=== PATIENT | male | born 1940 | race Caucasian/White ===

== ENCOUNTER 2018-01-29 07:46 | Day surgery (SDC) | payer MEDICARE ==
[2018-01-18 08:56] VITALS: BMI 29.5
--- NOTE | 2018-01-29 07:21 | P.GSHP ---
History of Present Illness H&P Date: 01/29/18 CHIEF COMPLAINT: Colon screen HISTORY OF PRESENT ILLNESS: The patient is a 77-year-old male who presents for colon screen. Lower endoscopy was offered for further evaluation and management. PAST MEDICAL HISTORY: Please see list. PAST SURGICAL HISTORY: Please see list. MEDICATIONS: Please see list. ALLERGIES: Please see list. SOCIAL HISTORY: No illicit drug use FAMILY HISTORY: No reports of Crohn disease or ulcerative colitis. REVIEW OF ORGAN SYSTEMS: CONSTITUTIONAL: No reports of fevers or chills. PHYSICAL EXAM: VITAL SIGNS: Stable GENERAL: Well-developed pleasant in no acute distress. HEENT: No scleral icterus. Extraocular movements grossly intact. Moist buccal mucosa. NECK: Supple without lymphadenopathy. CHEST: Unlabored respirations. Equal bilateral excursions. CARDIOVASCULAR: Regular rate and rhythm. Distal 2+ pulses. ABDOMEN: Soft, nontender, nondistended. MUSCULOSKELETAL: No clubbing, cyanosis, or edema. ASSESSMENT: 1. Colon screen. PLAN: 1. Recommend proceeding with a lower endoscopy Past Medical History Past Medical History: Diabetes Mellitus, GERD/Reflux, Prostate Disorder Additional Past Medical History / Comment(s): heart valve problem, diet control diabetic, History of Any Multi-Drug Resistant Organisms: None Reported Past Surgical History: Appendectomy, Cholecystectomy Additional Past Surgical History / Comment(s): torn retina rt eye surgery x 2, massiel cataracts Past Anesthesia/Blood Transfusion Reactions: Previous Problems w/ Anesthesia Additional Past Anesthesia/Blood Transfusion Reaction / Comment(s): diff waking up after colonoscopy-took long time Smoking Status: Never smoker - Past Family History Daughter(s) Family Medical History: Cancer Brother(s) Family Medical History: Cancer Medications and Allergies Home Medications Medication Instructions Recorded Confirmed Type Aspirin 325 mg PO DAILY 01/18/18 01/18/18 History Cholecalciferol [Vitamin D3] 4,000 unit PO DAILY 01/18/18 01/18/18 History Fenofibrate Nanocrystallized 145 mg PO DAILY 01/18/18 01/18/18 History [Tricor] Multivitamins, Thera [Multivitamin 1 tab PO DAILY 01/18/18 01/18/18 History (formulary)] Naproxen Sodium [Aleve] 220 mg PO DAILY 01/18/18 01/18/18 History Quinapril HCl [Accupril] 10 mg PO DAILY 01/18/18 01/18/18 History Tamsulosin HCl [Flomax] 0.4 mg PO HS 01/18/18 01/18/18 History Allergies Allergy/AdvReac Type Severity Reaction Status Date / Time No Known Allergies Allergy Verified 01/18/18 08:40
[~2018-01-29 07:46] MED LIST: LACTATED RINGERS 1,000 ML IV SCH; LIDOCAINE 1% 20 ML VIAL (10MG/ML) FOR IV START INTRADERMA PRN
[2018-01-29 08:17] VITALS: TEMP 98
[2018-01-29 08:20] LABS: Glucose,Whole Blood 114 mg/dL (75-99)
[2018-01-29] MEDS ORDERED: PROPOFOL 10 MG/ML 20 ML VIAL IV ONE (08:27)
--- NOTE | 2018-01-29 09:02 | P.PCN ---
Date of Procedure: 01/29/18 Description of Procedure: PREOPERATIVE DIAGNOSIS: Personal history of colon polyps. POSTOPERATIVE DIAGNOSIS: Personal history of colon polyps. Sigmoid colon polyp Rectal polyp Scattered diverticulosis OPERATION: Colonoscopy to the ileocecal valve and appendiceal orifice. Colonoscopy with multiple cold forceps biopsies. SURGEON: Denise Magana MD. ANESTHESIA: MAC. INDICATIONS: The patient is a 77-year-old male who presents for colonoscopy screening. Last colonoscopy was 5 years ago. Benefits and risks were described and informed consent was obtained. DESCRIPTION OF PROCEDURE: The patient had undergone Gatorade, MiraLAX and Dulcolax prep. He had been brought into the operating room and laid in the left lateral decubitus position. Prostatic fossa was without abnormality. After adequate intravenous sedation, the rectum was examined with 2% lidocaine jelly. No external hemorrhoids were encountered. The rectal tone was within normal limits. No lesions were palpated in the rectal vault. An Olympus colonoscope was advanced until the ileocecal valve and appendiceal orifice were clearly viewed. The prep was fair with visualization of the mucosal folds. The scope was removed with visualization of each mucosal fold. Scattered diverticulosis was encountered. Multiple colonic polyps were found and cold forcep biopsy . No evidence of focal colitis was found. Retroflexion of the scope demonstrated no internal hemorrhoids without active bleeding or inflammation. The colon was desufflated. The patient had tolerated the procedure well. Withdrawal time was over 6 minutes. FINDINGS: No internal hemorrhoids No external hemorrhoids No arteriovenous malformations Scattered diverticulosis without diverticulitis Removal of 2 polyps: - Cold forceps biopsy at 20 cm from the anal verge, 4 mm polyp, sigmoid colon - Cold forceps biopsy at 10 cm from the anal verge, 4 mm polyp, rectal polyp No focal colitis. RECOMMENDATIONS: Recommend repeat colonoscopy 5 years, 2022 Plan - Discharge Summary New Discharge Prescriptions: No Action Quinapril HCl [Accupril] 10 mg PO DAILY Fenofibrate Nanocrystallized [Tricor] 145 mg PO DAILY Tamsulosin HCl [Flomax] 0.4 mg PO HS Naproxen Sodium [Aleve] 220 mg PO DAILY Cholecalciferol [Vitamin D3] 4,000 unit PO DAILY Aspirin 325 mg PO DAILY Multivitamins, Thera [Multivitamin (formulary)] 1 tab PO DAILY Discharge Medication List Aspirin 325 mg PO DAILY 01/18/18 [History] Cholecalciferol [Vitamin D3] 4,000 unit PO DAILY 01/18/18 [History] Fenofibrate Nanocrystallized [Tricor] 145 mg PO DAILY 01/18/18 [History] Multivitamins, Thera [Multivitamin (formulary)] 1 tab PO DAILY 01/18/18 [History ] Naproxen Sodium [Aleve] 220 mg PO DAILY 01/18/18 [History] Quinapril HCl [Accupril] 10 mg PO DAILY 01/18/18 [History] Tamsulosin HCl [Flomax] 0.4 mg PO HS 01/18/18 [History]
[2018-01-29 09:21] VITALS: BP 125/81; PULSE 73; RESP 18
== END 2018-01-29 09:39 | disposition home or self-care (01) ==
LOC: ORWHC2ENDO 07:46
PROVIDERS: ATTEND Surgery Plastic and Reconstructive Surgery
DX: Z12.11 Encounter for screening for malignant neoplasm of colon (principal); K63.5 Polyp of colon; K62.1 Rectal polyp; K57.90 Diverticulosis of intestine, part unspecified, without perforation or abscess without bleeding; Z86.010 Personal history of colon polyps; K21.9 Gastro-esophageal reflux disease without esophagitis; I10 Essential (primary) hypertension; E78.5 Hyperlipidemia, unspecified; N40.0 Benign prostatic hyperplasia without lower urinary tract symptoms; Z79.82 Long term (current) use of aspirin; Z79.899 Other long term (current) drug therapy
CPT/HCPCS: 88305; 45380; J2704

== ENCOUNTER → 2018-04-03 | Outpatient (CLI) | payer MEDICARE ==
--- NOTE | 2018-04-03 11:28 | XR ---
EXAMINATION TYPE: XR shoulder complete LT DATE OF EXAM: 04/03/2018 COMPARISON: NONE HISTORY: Pain TECHNIQUE: Three views are submitted. FINDINGS: The osseous structures are intact. There is no acute fracture or dislocation. Severe arthropathy AC joint. Mild narrowing of the glenohumeral joint. IMPRESSION: 1. AC joint arthropathy.
== END | disposition home or self-care (01) ==
LOC: RADXRMAIN 10:39
PROVIDERS: ATTEND Physician Assistant
DX: M19.012 Primary osteoarthritis, left shoulder (principal)

== ENCOUNTER → 2018-04-26 | Outpatient (CLI) | payer MEDICARE | END | disposition home or self-care (01) | LOC: RADMRIMAIN 07:02 | PROVIDERS: ATTEND Physician Assistant | DX: Z53.9 Procedure and treatment not carried out, unspecified reason (principal) ==

== ENCOUNTER 2018-09-20 05:51 | Day surgery (SDC) | payer MEDICARE ==
[2018-07-31 10:25] VITALS: BMI 29.2
--- NOTE | 2018-09-19 15:17 | HP ---
HISTORY AND PHYSICAL DATE OF SERVICE: 09/20/2018 Car Escamilla is a 78-year-old patient seen with progressive left shoulder pain. We discussed treatment options. Patient wanted to proceed with arthroscopy. Consent was obtained. Medical and cardiac clearances were obtained. PAST MEDICAL HISTORY: Hypertension, hyperlipidemia. PAST SURGICAL HISTORY: Cholecystectomy daily. MEDICATIONS: Accupril, Tricor for Eliquis, Flomax, Lopressor. ALLERGIES: None. SOCIAL HISTORY: The patient denies current tobacco use. PHYSICAL EVALUATION OF THE LEFT SHOULDER: Flexion is 170 degrees, abduction 170 degrees, external rotation 70 degrees with pain and weakness. There is tenderness along the anterolateral acromion rotator cuff insertion site. Impingement sign is positive at 90. Drop-arm sign is positive. Distal neurovascular exam is intact. LEFT SHOULDER RADIOGRAPHS: Revealed a type 2 anterior acromion as well as evidence for acromioclavicular joint osteoarthritis. An MRI of left shoulder revealed a retracted rotator cuff tear, acromioclavicular joint osteoarthritis and labral tear. IMPRESSION: 1. Left shoulder impingement with rotator cuff tear. 2. Left shoulder acromioclavicular joint osteoarthritis. PLAN: Left shoulder arthroscopy with subacromial decompression, possible arthroscopic rotator cuff repair, possible Priyanka procedure and debridement. MMODL / IJN: [id number] /
[~2018-09-20 05:51] MED LIST changes: +DEXAMETHASONE SOD PHOSPHATE 10 MG/ML 1 ML VIAL IV ONE; +HYDROmorphone 0.5 MG/0.5 ML SYRINGE IVP PRN; +SCOPOLAMINE 1.5MG/72HR PATCH TRANSDERM ONE; +ceFAZolin IN SWFI 2 GM/20 ML SYRINGE IVP ONE
[2018-09-20] MEDS: ONDANSETRON 4 MG/2 ML VIAL IVP ONE ×2 (06:43→10:09)
[2018-09-20] MEDS ORDERED: NEOSTIGMINE 1 MG/ML 10 ML VIAL ONE (07:41)
[2018-09-20] MEDS ORDERED: LIDOCAINE 1% INJ 10MG/ML (20 ML MDV) ONE (07:41)
[2018-09-20] MEDS ORDERED: ROCURONIUM BROMIDE 10 MG/ML 10 ML VIAL IV ONE (07:41)
[2018-09-20] MEDS ORDERED: ROPIVACAINE 5 MG/ML 30 ML VIAL ONE (07:41)
[2018-09-20] MEDS ORDERED: GLYCOPYRROLATE 0.2 MG/ML 2 ML VIAL ONE (07:41)
[2018-09-20] MEDS ORDERED: PROPOFOL 10 MG/ML 20 ML VIAL IV ONE (07:41)
[2018-09-20] MEDS ORDERED: LACTATED RINGERS 1,000 ML IV ONE (08:48)
--- NOTE | 2018-09-20 09:29 | P.OP ---
Date of Procedure: 09/20/18 Preoperative Diagnosis: Left shoulder impingement Postoperative Diagnosis: 1. Left shoulder rotator cuff tear 2. Left shoulder impingement 3. Left shoulder acromioclavicular joint osteoarthritis 4. Left shoulder partial long head biceps tendon tear 5. Left shoulder superficial labral tear Procedure(s) Performed: 1. Left shoulder arthroscopic rotator cuff repair 2. Left shoulder arthroscopic subacromial decompression 3. Left shoulder arthroscopic Priyanka procedure 4. Left shoulder arthroscopic biceps tenotomy 5. Left shoulder arthroscopic debridement labral tear Implants: 4Arthrex swivel lock anchors Anesthesia: GETA, regional (Interscalene block) Surgeon: Nayan Chappell Estimated Blood Loss (ml): 10 Pathology: none sent Condition: stable Disposition: PACU Indications for Procedure: 78-year-old patient seen with progressive left shoulder pain. After having treatment options discussed, he elected to proceed with arthroscopy. Operative Findings: See description of procedure Description of Procedure: Patient underwent an interscalene block by department of anesthesia for postoperative pain management. The patient was then taken to the operative suite. The patient underwent a general anesthetic by the department of anesthesia. The patient was placed into a lateral position and secured. There was appropriate padding of the bony prominence. Left shoulder was then prepped and draped in normal sterile orthopedic fashion. We placed the extremity in 10 pounds of longitudinal traction. A posterior incision was now made for a posterior working portal site. The trocar and cannula were inserted into the glenohumeral joint. Arthroscopy was initiated. Spinal needle was now inserted anteriorly, to ascertain the anterior working portal site. An incision was now made in that area, a trocar was inserted followed by a probe. There was partial tearing long head biceps tendon. Some superficial tearing of the anterior/superior labrum. There was an obvious full-thickness large rotator cuff tear present and visualized from glenohumeral side. I performed an arthroscopic biceps tenotomy. I debrided the superficial labral tear down to stable tissue. The residual labrum appeared stable. Instruments were now removed from the glenohumeral joint. Utilizing the posterior working portal site, the trocar and cannula were inserted into the subacromial space. Arthroscopy initiated. I made an incision 2 fingerbreadths lateral to the acromion. I introduced my trocar followed by my ArthroCare ablator. I now began ablating thick subacromial bursal tissue, which exposed the undersurface of the anterior acromion. There was diminished subacromial space. There was a very prominent anterior acromion. A motorized bur was introduced and a subacromial decompression was performed. I also excised some osteophytes off the inferior aspect of the distal clavicle. The AC joint was visualized and noted to be fairly arthritic. The motorized bur was introduced in the anterior portal site and a Priyanka procedure was performed without difficulty, decompressing the AC joint nicely. I turned my attention to the rotator cuff. There was a 2. 53 cm rotator cuff tear. I debrided the margins getting down to stable tendon tissue. I introduced my motorized bur and abraded the footprint area, getting some petechial bleeding. I now made an accessory portal site off the lateral aspect of the acromion. I punched 2 holes medial for medial row fixation with the assistance of my records assistant carefully tapping the punch with a mallet as I held the punch and the camera. I now intr oduced both anchors into the pre-punched holes and tapped them with the mallet as I held anchors and the camera. My records assistant now screwed the anchors in place a while I held the anchor guide and camera. All 8 limbs of suture were now passed through good bites of rotator cuff tendon. I now punched 2 holes for lateral row fixation again I held the punch and camera while my records assistant used a mallet to tap in the punch. We now passed sutures through both anchors and individually I introduced the anchors into the pre-punch holes I held the anchor guide in position with one hand holding the camera with the other hand while my records assistant tensioned the sutures and screwed in the anchors one at a time. All residual suture limbs were now clipped. We had good compression of the tendon along the entire footprint. Instruments now removed from the portal sites. All portal sites were approximated with nylon suture. Sterile dressings were applied followed by a shoulder immobilizer. The patient was awakened, transferred to a bed, and taken to recovery in stable condition.
[2018-09-20 09:34] VITALS: TEMP 97.5
--- NOTE | 2018-09-20 09:37 | P.ONQ ---
Anesthesiology Proc Note - PNB - Peripheral Nerve Block Performed Left Interscalene Single Time Out Performed: Yes Procedure Start Time: :08 Procedure Stop Time: :15 Indication: Acute Post-Operative Pain, Requested by physician Sedation Type: Sedate with meaningful contact maintained Preparation: Sterile Prep Position: Supine Needle Size: 50mm (2") Needle Gauge: 21 Technique: Ultrasound (ropi .5% 30cc plus dexamethasone 4mg) Blood Aspirated: No Pain Paresthesia on Injection Noted: No Resistance on Injection: Normal Events: Uneventful and Well Tolerated
[2018-09-20] MEDS: MIDAZOLAM (PF) 2 MG/2 ML VIAL IV PRN (10:18)
[2018-09-20 13:58] VITALS: BP 141/70
[2018-09-20 14:35] VITALS: PULSE 56; RESP 18
== END 2018-09-20 14:38 | disposition home or self-care (01) ==
LOC: OR 05:51
PROVIDERS: ATTEND Orthopaedic Surgery
DX: M75.102 Unspecified rotator cuff tear or rupture of left shoulder, not specified as traumatic (principal); M75.42 Impingement syndrome of left shoulder; M19.012 Primary osteoarthritis, left shoulder; S46.112A Strain of muscle, fascia and tendon of long head of biceps, left arm, initial encounter; S43.432A Superior glenoid labrum lesion of left shoulder, initial encounter; M25.712 Osteophyte, left shoulder; X58.XXXA Exposure to other specified factors, initial encounter; I10 Essential (primary) hypertension; N40.0 Benign prostatic hyperplasia without lower urinary tract symptoms; E78.2 Mixed hyperlipidemia; E11.9 Type 2 diabetes mellitus without complications; Z79.01 Long term (current) use of anticoagulants; Z79.82 Long term (current) use of aspirin; Z79.899 Other long term (current) drug therapy; I48.2 Chronic atrial fibrillation; I34.0 Nonrheumatic mitral (valve) insufficiency; K21.9 Gastro-esophageal reflux disease without esophagitis; Z88.5 Allergy status to narcotic agent
CPT/HCPCS: 64415; 29826; 29827; 29824; C1713 ×5; C1765; J1100; J2710; J2405; J2001; J2795; J2704; J0690; J2250

== ENCOUNTER → 2019-03-12 | Outpatient (CLI) | payer MEDICARE ==
--- NOTE | 2019-03-12 10:20 | XR ---
EXAMINATION TYPE: XR chest 2V DATE OF EXAM: 03/12/2019 COMPARISON: 05/30/2017 TECHNIQUE: PA and lateral views submitted. HISTORY: Shortness of breath FINDINGS: Heart is enlarged. There is subsegmental changes at the lung bases. Hypertrophic and degenerative amandeep nge of the spine. No overt failure. Surgical clips in the abdomen noted. Arthropathy of the shoulders . Biapical pleural thickening. Atherosclerotic change aorta. IMPRESSION: 1. Cardiomegaly with basilar atelectasis favored over pneumonia.
== END | disposition home or self-care (01) ==
LOC: RADXRMAIN 09:37
PROVIDERS: ATTEND Physician Assistant
DX: I51.7 Cardiomegaly (principal); J98.11 Atelectasis; J18.9 Pneumonia, unspecified organism
CPT/HCPCS: 71046

== ENCOUNTER → 2019-03-25 | Outpatient (CLI) | payer MEDICARE ==
[2019-03-25 12:47] LABS: HCT 46.6 % (39.0-53.0); HGB 14.5 gm/dL (13.0-17.5); MCH 31.6 pg (25.0-35.0); MCHC 31.2 g/dL (31.0-37.0); MCV 101.1 fL (80.0-100.0); Mean Platelet Volume 8.2; Platelet Count 244 k/uL (150-450); RBC 4.61 m/uL (4.30-5.90); RDW 12.5 % (11.5-15.5); WBC 5.8 k/uL (3.8-10.6)
[2019-03-25 18:50] LABS: African American GFR (CKD) 44.4 (60.0-200.0); Anion Gap 8.9 mmol/L (4.00-12.00); Carbon Dioxide 24.1 mmol/L (21.6-31.8); Potassium 5.1 mmol/L (3.5-5.5)
== END | disposition home or self-care (01) ==
LOC: LABWHC1 10:50
PROVIDERS: ATTEND Internal Medicine Cardiovascular Disease
DX: R06.02 Shortness of breath (principal)
CPT/HCPCS: 36415; 80051; 82565; 83880; 84520; 85027

== ENCOUNTER → 2019-05-23 | Outpatient (CLI) | payer MEDICARE ==
[2019-05-23 17:13] LABS: HCT 43.8 % (39.0-53.0); HGB 14.8 gm/dL (13.0-17.5); MCH 32.3 pg (25.0-35.0); MCHC 33.9 g/dL (31.0-37.0); Mean Platelet Volume 7.6; Platelet Count 223 k/uL (150-450); RBC 4.59 m/uL (4.30-5.90); RDW 12.3 % (11.5-15.5); WBC 5.9 k/uL (3.8-10.6)
[2019-05-23 17:14] LABS: Potassium 4.7 mmol/L (3.5-5.1)
[2019-05-23 17:32] LABS: MCV 95.4 fL (80.0-100.0)
== END | disposition home or self-care (01) ==
LOC: LABPAT 16:26
PROVIDERS: ATTEND Internal Medicine Cardiovascular Disease
DX: Z01.812 Encounter for preprocedural laboratory examination (principal); I48.21 Permanent atrial fibrillation
CPT/HCPCS: 80051; 82565; 84520; 85027

== ENCOUNTER 2019-05-29 09:19 | Day surgery (SDC) | payer MEDICARE ==
[2019-05-28 10:48] VITALS: BMI 29.2
[2019-05-29] MEDS ORDERED: ceFAZolin 1,000 MG in SODIUM CHLORIDE 0.9% IRRIGATIO 250 ML IRRIGATION ONE (09:30)
[2019-05-29] MEDS: SODIUM CHLORIDE 0.9% 1,000 ML IV SCH ×2 (09:56→16:25)
[2019-05-29] MEDS ORDERED: LIDOCAINE 1% INJ 10MG/ML (20 ML MDV) ONE (10:41)
[2019-05-29] MEDS ORDERED: fentaNYL (PF) 50 MCG/ML 2 ML AMP ONE (10:41)
[2019-05-29] MEDS ORDERED: fentaNYL (PF) 50 MCG/ML 2 ML AMP IV ONE (10:50)
[2019-05-29] MEDS ORDERED: MIDAZOLAM 2 MG/2 ML VIAL IV ONE (10:50)
[2019-05-29] MEDS ORDERED: LIDOCAINE 1% INJ 10MG/ML (20 ML MDV) SQ ONE (10:53)
[2019-05-29] MEDS ORDERED: ACETAMINOPHEN TAB 325 MG TAB PO PRN (11:35)
--- NOTE | 2019-05-29 11:43 | P.PCN ---
Date of Procedure: 05/29/19 Preoperative Diagnosis: Atrial fibrillation, sick sinus syndrome Postoperative Diagnosis: The same Procedure(s) Performed: Axillary venography, single-chamber permanent pacemaker implantation Description of Procedure: HISTORY: This is a 78-year-old gentleman with history of chronic atrial fibrillation has been having issues with tachybradycardia syndrome. Patient is advised to have permanent pacemaker implantation. Patient was referred by Dr. Arriaza. CONSENT:I have discussed the risks, benefits and alternative therapies for the above-mentioned procedure and for both sedation/analgesia as well as necessary blood product administration, if indicated, as they pertain to this patient. The patient has indicated understanding and acceptance of the risks and procedures discussed. . PROCEDURE: Patient was brought to the lab in a fasting state. Patient was prepped and draped in the usual fashion. Patient was given IV sedation with fentanyl and Versed. The skin below the left clavicle was infiltrated with lidocaine. An incision was made parallel to deltopectoral groove was deepened until the pectoral fascia was exposed. A pocket was created by blunt dissection and cautery. Axillary venography was performed to delineate the course of the axillary vein. A single venous stick was performed into extrathoracic portion of the axillary vein and a single sheath was advanced over the guidewires and left in subclavian vein. Conscious Sedation: Versed 1mg Fentanyl 50 g Duration 45minutes LEADS: VENTRICULAR: This is manufactured by [employer]. Model number is 5076-58 and the serial number is [id number] The device: THIS IS MANUFACTURED BY [employer]. MODEL NUMBER IS [id number] and the serial number isRN [id number] The ventricular lead is maneuvered l with help of a straight and curved stylets into the left ventricle apical region. Satisfactory position was obtained and threshold measurements were made. The atrial lead was then maneuvered into the right atrial appendage. And thresholds were obtained. THRESHOLDS: VENTRICLE: The minimum patient threshold was 0.75 at pulse width of 0.4 with impedance of 1045 R-wave:8 The leads and pulse generator remained in the pocket after it was washed with antibiotics. Pocket was closed in the usual fashion. The fascia was closed with 2-0 Prolene ,the subcutaneous tissue was closed with 3-0 Prolene and the skin was closed with 4-0 Prolene. PROGRAMMING: MODE: VVIR RATE: 60- 120 OUTPUT: Ventricle: The amplitude is 3.5 V FINAL IMPRESSION: #1. Axillary venography #2. Successful implantation of single-chamber pacemaker. COMPLICATIONS: None PLAN: Continue prophylactic antibiotics. Chest x-ray in the morning. Possible discharge in am .
[2019-05-29 15:42] VITALS: RESP 18
[2019-05-29] MEDS: METOPROLOL TARTRATE 50 MG TAB PO SCH (20:43)
[2019-05-29] MEDS: APIXABAN 5 MG TAB PO SCH (20:43)
[2019-05-29] MEDS ORDERED: TAMSULOSIN 0.4 MG CAP.ER.24H PO SCH (21:00)
[2019-05-30] MEDS: SODIUM CHLORIDE 0.9% 1,000 ML IV SCH ×2 (03:24→03:25)
[2019-05-30] MEDS ORDERED: TAMSULOSIN 0.4 MG CAP.ER.24H PO SCH (03:30)
[2019-05-30] MEDS: METOPROLOL TARTRATE 50 MG TAB PO SCH ×3 (03:32→08:10)
[2019-05-30 08:01] VITALS: BP 144/91; PULSE 56; TEMP 97.9
[2019-05-30] MEDS: APIXABAN 5 MG TAB PO SCH (08:09)
--- NOTE | 2019-05-30 08:37 | XR ---
EXAMINATION TYPE: XR chest 2V DATE OF EXAM: 05/30/2019 COMPARISON: 03/12/2019 TECHNIQUE: PA and lateral views submitted. HISTORY: Lead placement FINDINGS: There is a single lead pacemaker with lead overlying the right ventricle and no sizable thorax. Inter stitium is coarse in the heart is enlarged. By basilar subsegmental consolidation. Hypertrophic and d egenerative change of the spine. Atherosclerotic change aorta. No pneumothorax. IMPRESSION: 1. Cardiac device appears in good position with no evidence of pneumothorax. 2. Bibasilar atelectasis or early infiltrate. 3. Correlate for chronic interstitial lung disease or venous congestion.
[2019-05-30] MEDS ORDERED: MULTIVITAMINS, THERA 1 EACH TAB PO SCH (09:00)
[2019-05-30] MEDS ORDERED: CHOLECALCIFEROL 1,000 UNIT TAB PO SCH (09:00)
[2019-05-30] MEDS ORDERED: FENOFIBRATE 160 MG TAB PO SCH (09:00)
[2019-05-30] MEDS ORDERED: LISINOPRIL 10 MG TAB PO SCH ×2 (09:00)
[2019-05-30] MEDS ORDERED: ASPIRIN 81 MG PO SCH (09:00)
== END 2019-05-30 12:10 | disposition home or self-care (01) ==
LOC: CATHEP 09:19 → 1SOBS 10:26 → CATHEP 05-30 12:10
PROVIDERS: ATTEND Internal Medicine Cardiovascular Disease
DX: I48.21 Permanent atrial fibrillation (principal); I49.5 Sick sinus syndrome; I10 Essential (primary) hypertension; E78.2 Mixed hyperlipidemia; Z79.01 Long term (current) use of anticoagulants; Z79.82 Long term (current) use of aspirin; Z79.899 Other long term (current) drug therapy
CPT/HCPCS: 33207; 83735; 71046; C1892; C1898; C1769; C1786; J2250; J0690 ×2; J2001; J3010

== ENCOUNTER → 2019-06-17 | Outpatient (CLI) | payer MEDICARE ==
--- NOTE | 2019-06-17 15:33 | US ---
EXAMINATION TYPE: US kidneys/renal and bladder DATE OF EXAM: 06/17/2019 COMPARISON: NONE CLINICAL HISTORY: N28.9 Disorder of kidney and ureter. abn labs per patient EXAM MEASUREMENTS: Right Kidney: 10.2 x 5.1 x 5.8 cm Left Kidney: 11.7 x 4.7 x 5.4 cm Right Kidney: Multiple cystic appearing lesions seen. Largest lower pole = 12.0 x 9.4 x 9.0 cm. Larg est upper pole = 4.6 x 4.9 x 4.1 cm Left Kidney: cystic lesion seen lateral lower pole - 3.3 x 2.7 x 2.9 cm. Solitary upper pole calculus measures 0.7 cm Bladder: mildly distended, anechoic Bilateral Jets not seen There is no evidence for hydronephrosis at this point in time. The urinary bladder is anechoic. Bila teral ureteral jets are not seen. IMPRESSION: 1. Numerous bilateral renal cysts with the largest on the left measuring up to 12.0 cm. 2. Nonobstructing left lower pole 7 mm renal calculus. 3. No hydronephrosis of either kidney.
== END | disposition home or self-care (01) ==
LOC: RADUSWWP 13:43
PROVIDERS: ATTEND Family Medicine
DX: N20.0 Calculus of kidney (principal); Q61.02 Congenital multiple renal cysts
CPT/HCPCS: 76770

== ENCOUNTER → 2020-01-03 | Outpatient (CLI) | payer MEDICARE | END | disposition home or self-care (01) | LOC: LABWHC1 09:31 | PROVIDERS: ATTEND Family Medicine | DX: Z20.828 Contact with and (suspected) exposure to other viral communicable diseases (principal) | CPT/HCPCS: U0003; C9803 ==

== ENCOUNTER → 2020-05-06 | Outpatient (CLI) | payer MEDICARE ==
[2020-05-06 15:40] LABS: HCT 41.6 % (39.0-53.0); HGB 13.7 gm/dL (13.0-17.5); MCH 31.6 pg (25.0-35.0); MCV 95.9 fL (80.0-100.0); Platelet Count 186 k/uL (150-450); RBC 4.33 m/uL (4.30-5.90); RDW 13.1 % (11.5-15.5); WBC 4.8 k/uL (3.8-10.6)
--- NOTE | 2020-05-06 15:59 | XR ---
EXAMINATION TYPE: XR chest 2V DATE OF EXAM: 05/06/2020 COMPARISON: Prior chest x-ray 05/30/2019 HISTORY: R06.02 TECHNIQUE: Frontal and lateral views of the chest are obtained. FINDINGS: There is no focal air space opacity, pleural effusion, or pneumothorax seen. The cardiac silhouette size is within normal limits. There is a generator in the left pectoral region, lead is p resent within the right ventricle. Aorta is dense and possibly ectatic. There is flattening the hemid iaphragms, increased AP diameter chest possibly indicative of underlying COPD. The level thoracic spo ndylosis is present. The osseous structures are intact. IMPRESSION: No acute cardiopulmonary process.
[2020-05-06 16:11] LABS: Calcium 9.7 mg/dL (8.4-10.2); Potassium 4.8 mmol/L (3.5-5.1)
== END | disposition home or self-care (01) ==
LOC: RADXRMAIN 14:28
PROVIDERS: ATTEND Internal Medicine Cardiovascular Disease
DX: R06.02 Shortness of breath (principal)
CPT/HCPCS: 71046; 80048; 83880; 85027

== ENCOUNTER 2020-07-31 07:39 | Day surgery (SDC) | payer MEDICARE ==
[2020-07-30 09:11] VITALS: BMI 29.1
[~2020-07-31 07:39] MED LIST changes: +ALPRAZolam 0.25 MG TAB PO PRN; +ALPRAZolam 0.5 MG TAB PO PRN; +ASPIRIN 325 MG TAB PO STA; +ATORVASTATIN 80 MG TAB PO STA; -DEXAMETHASONE SOD PHOSPHATE 10 MG/ML 1 ML VIAL IV ONE; +HEPARIN SODIUM,PORCINE 10,000 UNIT in SODIUM CHLORIDE 0.9% 1,000 ML IRRIGATION PRN; +HEPARIN SODIUM,PORCINE 2,500 UNIT in SODIUM CHLORIDE 0.9% 250 ML IRRIGATION PRN; -HYDROmorphone 0.5 MG/0.5 ML SYRINGE IVP PRN; -LACTATED RINGERS 1,000 ML IV SCH; -LIDOCAINE 1% 20 ML VIAL (10MG/ML) FOR IV START INTRADERMA PRN; -SCOPOLAMINE 1.5MG/72HR PATCH TRANSDERM ONE; +SODIUM CHLORIDE 0.9% 1,000 ML in EMPTY BAG 1 BAG IV ONE; -ceFAZolin IN SWFI 2 GM/20 ML SYRINGE IVP ONE
[2020-07-31] MEDS ORDERED: ASPIRIN 81 MG ONE (07:53)
[2020-07-31] MEDS ORDERED: SODIUM CHLORIDE 0.9% 500 ML 500 ML IV ONE (08:00)
[2020-07-31 08:46] VITALS: RESP 16; TEMP 97.5
[2020-07-31] MEDS ORDERED: LIDOCAINE 1% INJ 10MG/ML (20 ML MDV) ONE (08:46)
[2020-07-31] MEDS ORDERED: fentaNYL (PF) 50 MCG/ML 2 ML AMP ONE (08:51)
[2020-07-31] MEDS ORDERED: fentaNYL (PF) 50 MCG/ML 2 ML AMP IV ONE (09:09)
[2020-07-31] MEDS: MIDAZOLAM 2 MG/2 ML VIAL IV ONE ×2 (09:10→09:16)
[2020-07-31] MEDS ORDERED: LIDOCAINE 1% INJ 10MG/ML (20 ML MDV) SQ ONE ×2 (09:12)
[2020-07-31] MEDS ORDERED: IOPAMIDOL-370 125ML BTL INJ ONE (09:22)
[2020-07-31] MEDS ORDERED: RX INFO: IV CONTRAST WAS GIVEN 1 EACH MISC MISCELLANE PRN (09:47)
[2020-07-31] MEDS ORDERED: SODIUM CHLORIDE 0.9% 1,000 ML IV SCH ×2 (10:00)
--- NOTE | 2020-07-31 10:21 | CC ---
CARDIAC CATHETERIZATION REPORT INDICATION: Cardiomyopathy. PROCEDURE NOTE: After obtaining informed consent, left heart catheterization and coronary angiogram were performed via the right femoral artery using standard Smooth catheters. Patient tolerated the procedure well without any obvious immediate complications. A femoral angiogram was performed and Angio-Seal was deployed for hemostasis. Patient received moderate conscious sedation. Total sedation time was 14 minutes. FINDINGS: 1. HEMODYNAMICS: Left ventricular end-diastolic pressure is 8-10 mm. There is no significant gradient across the aortic valve. 2. LEFT VENTRICULOGRAM: Left ventriculogram is not performed. 3. ANGIOGRAPHIC DATA: Left Main Coronary Artery: Left main coronary artery is a normal-sized vessel and is free of stenosis. Divides into left anterior descending coronary artery and circumflex coronary artery. LAD and its branches, circumflex coronary artery and its branches are free of significant stenosis. Right coronary artery is a large dominant vessel and is free of significant disease. CONCLUSIONS: 1. Normal coronary arteries. 2. Normal left ventricular end-diastolic pressure. The flow was sluggish in the coronaries. PLAN: Patient will be treated with optimal medical therapy. Some of his symptoms may be related to atrial fibrillation with rapid ventricular rate. He is currently on beta blockers and we will increase the dose as tolerated by the blood pressures. MMODL / IJN: [id number] /
--- NOTE | 2020-07-31 10:21 | LTR ---
July 31, 2020 Re: Car Escamilla Dear Perry: I performed cardiac catheterization on Car Escamilla. A detailed catheterization note is enclosed for your records. In brief, the cardiac catheterization did not reveal coronary artery disease. His symptoms are related to nonischemic cardiomyopathy and atrial fibrillation. I am going to control his heart rate better with the Toprol and hopefully this will help alleviate his symptoms. Patient has renal insufficiency and understands the risk of contrast induced nephropathy and had been evaluated by a gauge operator prior. Thank you for allowing me to participate in the care of this pleasant gentleman. Sincerely, MD MARY Monroe / ROBERT: [id number] /
[2020-07-31 12:07] VITALS: BP 137/86; PULSE 62
== END 2020-07-31 14:23 | disposition home or self-care (01) ==
LOC: CATHCVL 07:39
PROVIDERS: ATTEND Internal Medicine Cardiovascular Disease
DX: I42.0 Dilated cardiomyopathy (principal); I48.19 Other persistent atrial fibrillation; I08.1 Rheumatic disorders of both mitral and tricuspid valves; I27.20 Pulmonary hypertension, unspecified; I10 Essential (primary) hypertension; E78.2 Mixed hyperlipidemia; Z79.899 Other long term (current) drug therapy; Z79.82 Long term (current) use of aspirin; Z79.01 Long term (current) use of anticoagulants; Z88.5 Allergy status to narcotic agent
CPT/HCPCS: 93458; C1769 ×2; C1760; C1894; J2250; J2001; J3010; Q9967

== ENCOUNTER → 2020-12-23 | Outpatient (CLI) | payer MEDICARE ==
[2020-12-23 12:09] LABS: Appearance,Urine Clear (Clear); Bilirubin,Urine Negative (Negative); Blood,Urine Negative (Negative); Color,Urine Light Yellow; Glucose,Urine (UA) 3+ (Negative); Ketones,Urine Negative (Negative); Leukocyte Esterase,Urine Negative (Negative); Nitrite,Urine Negative (Negative); PH, Urine 6.5 (5.0-8.0); Protein,Urine Negative (Negative); Specific Gravity,Urine 1.011 (1.001-1.035); Urobilinogen,Urine <2.0 mg/dL (<2.0)
[2020-12-23 18:24] LABS: HCT 42.4 % (39.6-50.0); MCH 31.5 pg (27.0-32.0); MCV 95.5 fL (80.0-97.0); Mean Platelet Volume 10.7 fL (9.5-12.2); Platelet Count 186 X 10*3/uL (140-440); RBC 4.44 X 10*6/uL (4.40-5.60); RDW 12.5 % (11.5-14.5); WBC 4.83 X 10*3/uL (4.50-10.00)
[2020-12-23 20:34] LABS: Microalbumin Creatinine Ratio <30 mg/g Creat (0-30); Urine Creatinine 54.8 mg/dL
[2020-12-23 22:46] LABS: % Iron Saturation 25.6 (15.00-50.00); African American GFR (CKD) 40.9 (60.0-200.0); Albumin 4.2 g/dL (3.80-4.90); Albumin/Globulin Ratio 1.62 (1.60-3.17); Anion Gap 8.6 mmol/L (4.00-12.00); BUN/Creat Ratio 18.89 Ratio (12.00-20.00); Calcium 9.2 mg/dL (8.7-10.3); Carbon Dioxide 24.4 mmol/L (21.6-31.8); Globulin 2.6 g/dL (1.6-3.3); Magnesium 1.9 mg/dL (1.5-2.4); Non-African American GFR(CKD) 35.3 (60.0-200.0); Phosphorus 3.1 mg/dL (2.4-5.1); Potassium 4.3 mmol/L (3.5-5.5); Total Bilirubin 0.7 mg/dL (0.2-1.2); Total Protein 6.8 g/dL (6.2-8.2); Uric Acid 6.4 mg/dL (3.7-8.7)
== END | disposition home or self-care (01) ==
LOC: LABWHC1 10:53
PROVIDERS: ATTEND Internal Medicine
DX: N18.32 Chronic kidney disease, stage 3b (principal); D64.9 Anemia, unspecified; N39.0 Urinary tract infection, site not specified; N25.81 Secondary hyperparathyroidism of renal origin; E55.9 Vitamin D deficiency, unspecified; M10.9 Gout, unspecified
CPT/HCPCS: 36415; 80053; 81003; 82043; 82306; 82570; 83540; 83550; 83735; 83970; 84100; 84550; 85027

== ENCOUNTER → 2021-01-25 | Outpatient (CLI) | payer MEDICARE ==
--- NOTE | 2021-01-26 09:24 | XR ---
Thoracic spine and cervical spine HISTORY: M [age], pain Frontal and lateral views of the thoracic spine on 4 images and 3 views of the cervical spine No comparisons Pacemaker lead is noted incidentally. Cervical spine shows spondylosis, there is an anterolisthesis g rade 1 C5-6, retrolisthesis grade 1 C2-3 and C3-4. C7-T1 not well seen. Prevertebral soft tissues are normal. Disc heights are essentially maintained. Facet arthropathy changes are present. Airway is pa tent. Generators present in left pectoral region. Hypertrophic changes are present within the thoracic spine with anterior flowing osteophytes with rel ative preservation of the disc spaces. Thoracic vertebral bodies show preserved height and alignment, bone mineralization is maintained. There is a slight spinal curvature. IMPRESSION: Correlate for diffuse idiopathic skeletal hyperostosis rather than degenerative disc dise ase. Spondylolisthesis as described in the cervical spine.
== END | disposition home or self-care (01) ==
LOC: RADXRMAIN 16:01
PROVIDERS: ATTEND Nurse Practitioner
DX: M43.12 Spondylolisthesis, cervical region (principal); M47.812 Spondylosis without myelopathy or radiculopathy, cervical region; M99.71 Connective tissue and disc stenosis of intervertebral foramina of cervical region
CPT/HCPCS: 72040; 72072

== ENCOUNTER → 2021-04-06 | Outpatient (CLI) | payer MEDICARE ==
[2021-04-06 15:53] LABS: Basophils # (A) 0.04 X 10*3/uL (0.00-0.10); Basophils % (A) 0.7 %; Eosinophils # (A) 0.07 X 10*3/uL (0.04-0.35); Eosinophils % (A) 1.2 %; HGB 14.2 g/dL (13.0-17.0); Lymphocytes # (A) 1.77 X 10*3/uL (0.90-5.00); Lymphocytes % (A) 30.1 %; MCH 31.3 pg (27.0-32.0); MCHC 32.3 g/dL (32.0-37.0); MCV 96.9 fL (80.0-97.0); Mean Platelet Volume 10.5 fL (9.5-12.2); Monocytes # (A) 0.72 X 10*3/uL (0.20-1.00); Monocytes % (A) 12.2 %; Neutrophils # (A) 3.27 X 10*3/uL (1.80-7.70); Neutrophils % (A) 55.5 %; Platelet Count 224 X 10*3/uL (140-440); RBC 4.54 X 10*6/uL (4.40-5.60); WBC 5.89 X 10*3/uL (4.50-10.00)
[2021-04-06 19:10] LABS: % Iron Saturation 16.37 (15.00-50.00); Albumin 4.2 g/dL (3.8-4.9); Albumin/Globulin Ratio 1.67 (1.60-3.17); Anion Gap 14.8 mmol/L (4.00-12.00); BUN/Creat Ratio 22.25 Ratio (12.00-20.00); Blood Urea Nitrogen 44.5 mg/dL (9.0-27.0); Calcium 9.7 mg/dL (8.7-10.3); Carbon Dioxide 21.9 mmol/L (21.6-31.8); Globulin 2.5 g/dL (1.6-3.3); Magnesium 2.3 mg/dL (1.5-2.4); Non-African American GFR(CKD) 31.1 (60.0-200.0); Phosphorus 4.5 mg/dL (2.4-5.1); Potassium 4.7 mmol/L (3.5-5.5); Total Bilirubin 0.4 mg/dL (0.30-1.20); Total Protein 6.8 g/dL (6.2-8.2)
== END | disposition home or self-care (01) ==
LOC: LABWHC1 09:32
PROVIDERS: ATTEND Nurse Practitioner
DX: N18.9 Chronic kidney disease, unspecified (principal); E55.9 Vitamin D deficiency, unspecified; I48.91 Unspecified atrial fibrillation; I45.4 Nonspecific intraventricular block; R53.83 Other fatigue; R94.31 Abnormal electrocardiogram [ECG] [EKG]
CPT/HCPCS: 36415; 80053; 82306; 82728; 83540; 83550; 83735; 83970; 84100; 84550; 85025; 93005

== ENCOUNTER → 2021-04-21 | Outpatient (CLI) | payer MEDICARE ==
[2021-04-21 14:54] LABS: Appearance,Urine Clear (Clear); Bilirubin,Urine Negative (Negative); Blood,Urine Negative (Negative); Color,Urine Light Yellow; Glucose,Urine (UA) Negative (Negative); Ketones,Urine Negative (Negative); Leukocyte Esterase,Urine Negative (Negative); Nitrite,Urine Negative (Negative); Protein,Urine Negative (Negative); Specific Gravity,Urine 1.007 (1.001-1.035); Urobilinogen,Urine <2.0 mg/dL (<2.0)
[2021-04-21 23:11] LABS: HCT 41.6 % (39.6-50.0); HGB 13.4 g/dL (13.0-17.0); MCH 31.2 pg (27.0-32.0); MCHC 32.2 g/dL (32.0-37.0); Mean Platelet Volume 10.4 fL (9.5-12.2); Platelet Count 199 X 10*3/uL (140-440); RBC 4.29 X 10*6/uL (4.40-5.60); RDW 13.2 % (11.5-14.5); WBC 6.06 X 10*3/uL (4.50-10.00)
[2021-04-22 03:05] LABS: % Iron Saturation 22.9 (15.00-50.00); African American GFR (CKD) 38.8 (60.0-200.0); Albumin 4.5 g/dL (3.8-4.9); Albumin/Globulin Ratio 1.63 (1.60-3.17); Anion Gap 14.9 mmol/L (4.00-12.00); BUN/Creat Ratio 14.52 Ratio (12.00-20.00); Blood Urea Nitrogen 27.3 mg/dL (9.0-27.0); Calcium 10.1 mg/dL (8.7-10.3); Carbon Dioxide 23.7 mmol/L (21.6-31.8); Globulin 2.8 g/dL (1.6-3.3); Magnesium 2.1 mg/dL (1.5-2.4); Non-African American GFR(CKD) 33.5 (60.0-200.0); Phosphorus 3.7 mg/dL (2.4-5.1); Potassium 4.5 mmol/L (3.5-5.5); Total Bilirubin 0.5 mg/dL (0.30-1.20); Total Protein 7.2 g/dL (6.2-8.2)
[2021-04-22 13:57] LABS: Microalbumin Creatinine Ratio <30 mg/g Creat (0-30); Urine Creatinine 31.2 mg/dL (39.0-259.0)
== END | disposition home or self-care (01) ==
LOC: LABWHC1 14:01
PROVIDERS: ATTEND Nurse Practitioner Family
DX: N18.32 Chronic kidney disease, stage 3b (principal); D64.9 Anemia, unspecified; N39.0 Urinary tract infection, site not specified; E21.3 Hyperparathyroidism, unspecified; E55.9 Vitamin D deficiency, unspecified; M10.9 Gout, unspecified
CPT/HCPCS: 36415; 80053; 81003; 82043; 82306; 82570; 82728; 83540; 83550; 83735; 83970; 84100; 84550; 85027

== ENCOUNTER → 2021-05-28 | Outpatient (CLI) | payer MEDICARE | END | disposition home or self-care (01) | LOC: LABWHC1 10:30 | PROVIDERS: ATTEND Family Medicine | DX: J06.9 Acute upper respiratory infection, unspecified (principal) | CPT/HCPCS: 87502; U0003; C9803; U0005 ==

== ENCOUNTER 2021-07-04 11:56 | Observation (INO) | payer MEDICARE ==
[2021-07-04 12:04] LABS: Glucose,Whole Blood 163 mg/dL (75-99)
--- NOTE | 2021-07-04 12:47 | ED ---
General Adult HPI - General Chief complaint: Dizziness Stated complaint: dizziness, weakness Source: patient, family Mode of arrival: EMS Limitations: no limitations - History of Present Illness Initial comments: Car is a 81yo M with extensive PMH most significant for CAD, A-fib, anticoagulated the ER today via private vehicle for evaluation of a sudden onset of dizziness and weakness. Patient reports that at 9:30 this morning he suddenly became very dizzy and nauseated and had some emesis. He tried resting but had persistent dizziness causing nausea. After couple hours of symptoms he agreed to allow his to drive him to the emergency department. In route to the hospital reports that he slumped over and was not very responsive however seemed to become more awake upon arrival. Patient's having trouble walking due to dizziness. He says he did have some blurred vision and trouble focusing but that seems to be improving right now. He reports mild headache. Eyes any recent fevers chills or illness. Denies any chest pain or palpitations. - Related Data Home Medications Medication Instructions Recorded Confirmed Fenofibrate Nanocrystallized 145 mg PO DAILY 01/18/18 07/30/20 [Tricor] Multivitamins, Thera [Multivitamin 1 tab PO DAILY 01/18/18 07/30/20 (formulary)] Tamsulosin HCl [Flomax] 0.4 mg PO HS 01/18/18 07/30/20 Apixaban [Eliquis] 5 mg PO BID 07/31/18 07/30/20 Aspirin [Adult Low Dose Aspirin EC] 81 mg PO DAILY 07/31/18 07/30/20 Furosemide [Lasix] 40 mg PO DAILY 07/30/20 07/30/20 Metoprolol Succinate (ER) [Toprol 25 mg PO QAM 07/30/20 07/30/20 Xl] Pregabalin 50 mg PO TID 07/30/20 07/30/20 Quinapril HCl [Accupril] 5 mg PO QAM 07/30/20 07/30/20 Allergies Allergy/AdvReac Type Severity Reaction Status Date / Time morphine AdvReac Nausea & Verified 07/04/21 12:04 Vomiting Review of Systems ROS Statement: Those systems with pertinent positive or pertinent negative responses have been documented in the HPI. ROS Other: All systems not noted in ROS Statement are negative. Past Medical History Past Medical History: Atrial Fibrillation, Heart Failure, Diabetes Mellitus, Hyperlipidemia, Hypertension, Prostate Disorder Additional Past Medical History / Comment(s): states recent SOB, fatigue, angina, leaking mitral valve, diet control diabetic, History of Any Multi-Drug Resistant Organisms: None Reported Past Surgical History: Appendectomy, Cholecystectomy, Heart Catheterization, Orthopedic Surgery, Pacemaker, Tonsillectomy Additional Past Surgical History / Comment(s): torn retina rt eye surgery x 2, massiel cataracts, colonoscopy. left shoulder rotator cuff Past Anesthesia/Blood Transfusion Reactions: Previous Problems w/ Anesthesia Additional Past Anesthesia/Blood Transfusion Reaction / Comment(s): diff waking up after colonoscopy-took long time Type of Cardiac Device: Permanent Pacemaker Device Placement Date:: 12/2019 Past Psychological History: No Psychological Hx Reported Smoking Status: Never smoker Past Alcohol Use History: None Reported Past Drug Use History: None Reported - Past Family History Daughter(s) Family Medical History: Cancer Brother(s) Family Medical History: Cancer Father Family Medical History: Cancer General Exam - General Exam Comments Initial Comments: Physical Exam GENERAL: Patient is well-developed and well-nourished. Patient is nontoxic and well- hydrated and is in no distress. HENT: Normocephalic, Atraumatic. EYES: PERRL, EOMI PULMONARY: Unlabored respirations. No audible rales rhonchi or wheezing was noted. CARDIOVASCULAR: There is a regular rate and rhythm without any murmurs gallops or rubs. ABDOMEN: Soft and nontender with normal bowel sounds. SKIN: Skin is clear with no lesions or rashes and otherwise unremarkable. : Deferred NEUROLOGIC: Patient is alert and oriented x3. Cranial nerves II through XII are grossly intact There is horizontal nystagmus on lateral gaze bilaterally Uncoordination testing there is past pointing and ataxia of the right upper extremity MUSCULOSKELETAL: Normal extremities with adequate strength and full range of motion. No lower extremity swelling or edema. No calf tenderness. PSYCHIATRIC: Normal psychiatric evaluation. Limitations: no limitations Course Vital Signs 07/04/21 07/04/21 07/04/21 11:58 12:40 12:55 Temperature 96.7 F L 96.7 F L 96.7 F L Pulse Rate 76 76 76 Respiratory 18 18 18 Rate Blood Pressure 141/97 120/76 120/76 O2 Sat by Pulse 97 97 97 Oximetry 07/04/21 13:35 Temperature 96.7 F L Pulse Rate 76 Respiratory 18 Rate Blood Pressure 131/77 O2 Sat by Pulse 97 Oximetry EKG Findings - EKG Comments: EKG Findings:: EKG was obtained due to complaint of dizziness, EKG was obtained at 1213 rate is 6200 them is ventricular paced there is no ST elevations or depressions no evidence of ischemia or infarction Medical Decision Making - Medical Decision Making The patient was seen and evaluated, history is obtained from the patient and at bedside 81-year-old gentleman with sudden onset of dizziness, nausea, vomiting, mild headache On exam the patient has ataxia in the right upper extremity and generalized weakness Code stroke was activated pt was taken to CT suite Patient care was discussed with interventional neurologist , based on p boni's medications L Keanu he is not a candidate for TPA, agreed with plan for CT CTA CT/CTA with possible fusiform aneurysm, no other abnormality noted Patients symptoms improving Review of the patient's medications he is not currently taking a statin or aspirin, I did order these for treatment of acute stroke The patient's advanced age, multiple risk factors and CT findings I do feel he w ould benefit from further observation and evaluation by neurology. Patient are agreeable to this plan. Patient care was discussed with Dr. Ornelas who accepts the admission on behalf of Dr. Nichols the patient's primary care physician admission orders and neurology consult were placed - Lab Data Result diagrams: 07/04/21 12:40 07/04/21 12:40 Lab Results 07/04/21 07/04/21 07/04/21 Range/Units 12:03 12:40 12:40 WBC 6.2 (3.8-10.6) k/uL RBC 4.53 (4.30-5.90) m/uL Hgb 14.2 (13.0-17.5) gm/dL Hct 42.8 (39.0-53.0) % MCV 94.4 (80.0-100.0) fL MCH 31.2 (25.0-35.0) pg MCHC 33.1 (31.0-37.0) g/dL RDW 12.3 (11.5-15.5) % Plt Count 206 (150-450) k/uL MPV 7.7 Neutrophils % 62 % Lymphocytes % 26 % Monocytes % 7 % Eosinophils % 2 % Basophils % 1 % Neutrophils # 3.9 (1.3-7.7) k/uL Lymphocytes # 1.6 (1.0-4.8) k/uL Monocytes # 0.5 (0-1.0) k/uL Eosinophils # 0.1 (0-0.7) k/uL Basophils # 0.0 (0-0.2) k/uL PT 12.2 H (9.0-12.0) sec INR 1.2 H (<1.2) APTT 26.9 (22.0-30.0) sec Sodium (137-145) mmol/L Potassium (3.5-5.1) mmol/L Chloride (98-107) mmol/L Carbon Dioxide (22-30) mmol/L Anion Gap mmol/L BUN (9-20) mg/dL Creatinine (0.66-1.25) mg/dL Est GFR (CKD-EPI)AfAm (>60 ml/min/1.73 sqM) Est GFR (CKD-EPI)NonAf (>60 ml/min/1.73 sqM) Glucose (74-99) mg/dL POC Glucose (mg/dL) 163 H (75-99) mg/dL POC Glu Salvage Diver ID Edith Ward Calcium (8.4-10.2) mg/dL Total Bilirubin (0.2-1.3) mg/dL AST (17-59) U/L ALT (4-49) U/L Alkaline Phosphatase (38-126) U/L Troponin I (0.000-0.034) ng/mL Total Protein (6.3-8.2) g/dL Albumin (3.5-5.0) g/dL 07/04/21 07/04/21 Range/Units 12:40 12:40 WBC (3.8-10.6) k/uL RBC (4.30-5.90) m/uL Hgb (13.0-17.5) gm/dL Hct (39.0-53.0) % MCV (80.0-100.0) fL MCH (25.0-35.0) pg MCHC (31.0-37.0) g/dL RDW (11.5-15.5) % Plt Count (150-450) k/uL MPV Neutrophils % % Lymphocytes % % Monocytes % % Eosinophils % % Basophils % % Neutrophils # (1.3-7.7) k/uL Lymphocytes # (1.0-4.8) k/uL Monocytes # (0-1.0) k/uL Eosinophils # (0-0.7) k/uL Basophils # (0-0.2) k/uL PT (9.0-12.0) sec INR (<1.2) APTT (22.0-30.0) sec Sodium 136 L (137-145) mmol/L Potassium 5.1 (3.5-5.1) mmol/L Chloride 104 (98-107) mmol/L Carbon Dioxide 22 (22-30) mmol/L Anion Gap 10 mmol/L BUN 35 H (9-20) mg/dL Creatinine 1.59 H (0.66-1.25) mg/dL Est GFR (CKD-EPI)AfAm 47 (>60 ml/min/1.73 sqM) Est GFR (CKD-EPI)NonAf 41 (>60 ml/min/1.73 sqM) Glucose 176 H (74-99) mg/dL POC Glucose (mg/dL) (75-99) mg/dL POC Glu Salvage Diver ID Calcium 10.0 (8.4-10.2) mg/dL Total Bilirubin 1.2 (0.2-1.3) mg/dL AST 33 (17-59) U/L ALT 19 (4-49) U/L Alkaline Phosphatase 30 L (38-126) U/L Troponin I <0.012 (0.000-0.034) ng/mL Total Protein 7.4 (6.3-8.2) g/dL Albumin 4.1 (3.5-5.0) g/dL Disposition Clinical Impression: Basilar artery aneurysm, Dizziness Disposition: ADMITTED IP TO THIS HOSP Condition: Serious Referrals: Perry Nichols MD [Primary Care Provider] - 1-2 days
[2021-07-04 13:00] LABS: Basophils % (A) 1 %; Eosinophils # (A) 0.1 k/uL (0-0.7); Eosinophils % (A) 2 %; HCT 42.8 % (39.0-53.0); HGB 14.2 gm/dL (13.0-17.5); Lymphocytes # (A) 1.6 k/uL (1.0-4.8); Lymphocytes % (A) 26 %; MCH 31.2 pg (25.0-35.0); MCHC 33.1 g/dL (31.0-37.0); MCV 94.4 fL (80.0-100.0); Mean Platelet Volume 7.7; Monocytes # (A) 0.5 k/uL (0-1.0); Monocytes % (A) 7 %; Neutrophils # (A) 3.9 k/uL (1.3-7.7); Neutrophils % (A) 62 %; Platelet Count 206 k/uL (150-450); RBC 4.53 m/uL (4.30-5.90); RDW 12.3 % (11.5-15.5); WBC 6.2 k/uL (3.8-10.6)
--- NOTE | 2021-07-04 13:08 | CT ---
EXAMINATION TYPE: CT brain wo con for TPA DATE OF EXAM: 07/04/2021 COMPARISON: None HISTORY: Neuro deficit, acute, stroke suspected CT DLP: 1202.4 mGycm Automated exposure control for dose reduction was used. FINDINGS: Mild generalized degenerative change. No acute hemorrhage or mass effect. No midline shift. There is nodular prominence of the basilar tip. Orbits are symmetric. Nasal septal deviation noted with changes of mild chronic sinusitis. Craniocerv ical junction maintained. Calvarium intact. Dental artifact limits portions of the skull base. IMPRESSION: DEGENERATIVE CHANGE WITH NO ACUTE HEMORRHAGE OR MASS EFFECT. CORRELATE WITH MRI IF CONCERN FOR ACUTE ISCHEMIA CLINICALLY WARRANTED. PROMINENCE OF THE BASILAR TIP. SMALL 3 MM ANEURYSM NOT EXCLUDED..
[2021-07-04 13:10] LABS: INR 1.2 (<1.2); Partial Thromboplastin Time 26.9 sec (22.0-30.0); Prothrombin Time 12.2 sec (9.0-12.0)
[2021-07-04 13:11] LABS: Albumin 4.1 g/dL (3.5-5.0); Total Bilirubin 1.2 mg/dL (0.2-1.3); Total Protein 7.4 g/dL (6.3-8.2)
[2021-07-04 13:15] LABS: Potassium 5.1 mmol/L (3.5-5.1)
--- NOTE | 2021-07-04 13:46 | CT ---
EXAMINATION TYPE: CODE STROKE: CTA head neck DATE OF EXAM: 07/04/2021 HISTORY: Dizzy, ataxia of right arm COMPARISON: CT 07/04/2021 CT DLP: 635.3 mGycm. Automated Exposure Control for Dose Reduction was Utilized. TECHNIQUE: CTA scan of the neck is performed without and with IV Contrast, patient injected with 65 mll mL of Isovue 370, axial images are obtained, coronal and sagittal reformatted images are reviewed . 3D reconstructed images are created on an independent workstation and reviewed. FINDINGS: The vertebrobasilar and carotid systems are patent. Anterior cerebral arteries are diminuti ve in size bilaterally. Middle cerebral arteries enhance. Posterior cerebral arteries enhance. There is mild prominence of the basilar tip measuring 3 mm. Aortic arch demonstrates mild atherosclerotic changes. Origins of the great vessels appear to be patino nt. Vertebral arteries are symmetric in size. Tortuosity of the distal left ICA as it enters the lance tid canal subsegmental changes involving the lungs most typical of atelectasis. The carotid bifurcations demonstrate mild atherosclerotic plaque on the left. No significant stenosis bilaterally. IMPRESSION: 1. No sizable aneurysm or vascular malformation. 2. Carotid bifurcations are patent bilaterally with no significant stenosis. 3. There is fusiform prominence of the basilar tip measuring 3 mm correlate for fusiform aneurysm. NASCET criteria was used in interpretation of this exam?
--- NOTE | 2021-07-04 13:50 | XR ---
EXAMINATION TYPE: XR chest 2V DATE OF EXAM: 07/04/2021 COMPARISON: NONE TECHNIQUE: PA and lateral views submitted. HISTORY: Altered mental status FINDINGS: The lungs are clear and there is no pneumothorax, pleural effusion, or focal pneumonia. Hypertrophi c and degenerative change. Cardiomegaly and cardiac device. Underlying COPD suspected. Arthropathy of the shoulders. IMPRESSION: 1. No acute process.
[2021-07-04] MEDS ORDERED: ASPIRIN 325 MG TAB PO STA (14:49)
[2021-07-04] MEDS: ATORVASTATIN 40 MG TAB PO SCH (15:20)
--- NOTE | 2021-07-04 19:28 | HP ---
HISTORY AND PHYSICAL DATE OF SERVICE: 07/04/2021. CHIEF COMPLAINTS: Dizziness and weakness. HISTORY OF PRESENT ILLNESS: This 81-year-old gentleman with a past medical history of multiple medical problems including atrial fibrillation, history of CHF, history of diabetes, hypertension, hyperlipidemia, history of prostate disorder, history of appendectomy, history of cholecystectomy, being followed by Dr. Perry Nichols in the outpatient setting was apparently having some dizziness. The patient has vertigo. When the came back, the patient was slumped over and the patient also had significant difficulty in walking. Patient also had a brief episodes of presyncopal event also. The patient is unable to move the legs and the patient came to [facility] and was admitted to the hospital for further evaluation and treatment. Stroke code was called. Neurology was consulted and the patient had multiple evaluations in the ER. CT of the brain which was reviewed personally by me showed degenerative changes with no acute changes. Prominence of the basilar tip was noted with small 3 mm aneurysm cannot be excluded and CT angio was also done which showed no sizable aneurysm and carotid bifurcations are patent bilaterally. prominence of the basilar tip was noted, 3 cm and possible diffuse aneurysm was also noted and the patient admitted to the hospital for further evaluation and treatment. The baseline labs showed mild hyponatremia. Creatinine was about 1.590 indicating chronic kidney disease stage 3, COVID 19 was negative. There is no history of fever, rigors or chills at this time. PAST MEDICAL HISTORY: History of atrial fibrillation, history of CHF, diabetes, hypertension, hyperlipidemia. MEDICATIONS: Home medications are multivitamins, sodium bicarb and Trulicity, Flomax, Accupril, vitamin D3. Doses are reviewed. ALLERGIES: MORPHINE. FAMILY HISTORY: History of cancer in the family. SOCIAL HISTORY: No history of smoking, no history of alcohol intake. The patient is a retired student assistant. REVIEW OF SYSTEMS: ENT: As mentioned earlier. CARDIOVASCULAR: No angina. RESPIRATORY: As mentioned earlier. GI: As mentioned earlier. : No dysuria. NERVOUS SYSTEM: As mentioned earlier. ALLERGY/IMMUNOLOGY: No asthma or hayfever. MUSCULOSKELETAL as mentioned earlier. HEMATOLOGY/ONCOLOGY: No history of anemia. ENDOCRINE: As mention earlier. CONSTITUTIONAL: As mentioned earlier. DERMATOLOGY: Negative. RHEUMATOLOGY: Negative. PSYCHIATRIC: As mentioned earlier. PHYSICAL EXAMINATION: Alert and oriented times three. Pulse is 76, blood pressure 131/77, respiration 18, temperature 96.7, pulse ox 97% on room air. HEENT: Conjunctivae normal. Oral mucosa moist. NECK: No jugular venous distention. No carotid bruit. No lymph node enlargement. CARDIOVASCULAR: S1, S2 muffled. RESPIRATORY: Breath sounds diminished in the bases. No rhonchi. No crackles. ABDOMEN: Soft, nontender. LEGS: No edema. No swelling. NERVOUS SYSTEM: Higher functions as mentioned earlier. Cranial nerves second to twelve grossly intact. No nystagmus. No diplopia. Otherwise minimal [id number] left more than the right present. SKIN: No ulcers, rashes or bleeding. JOINTS: No active deformity arthropathy. LYMPHATICS: No lymph nodes palpable in the neck, axillae or groin. LAB: CBC within normal limits. INR 1.2. Sodium 136. ASSESSMENT: 1. Dizziness and weakness possible acute vertebrobasilar stroke versus transient ischemic attack. 2. Rule out fusiform basilar artery aneurysm. 3. Increased creatinine, chronic kidney stage 3. 4. Hyponatremia. 5. Diabetes mellitus, type 2. 6. History of atrial fibrillation. 7. History of congestive heart failure. 8. Hypertension. 9. Hyperlipidemia. 10.History of prostate disorder. 11.History of appendectomy. 12.History of cholecystectomy. 13.History of pacemaker. 14.History of retinal detachment. 15.FULL CODE. RECOMMENDATIONS AND DISCUSSION: This 81-year-old gentleman who presented with multiple complex medical issues, we will monitor the patient closely. Continue the current medications, management and symptomatic treatment. Neuro checks and neurovascular evaluation. I would recommend Lipitor, antiplatelet agents. MRI of the brain. Prognosis guarded because of multiple complex medical issues. Further recommendations to follow. A copy of dictation being forwarded to Dr. Perry Nichols, who is the primary physician. MMODL / IJN: [id number] / MTDD
[2021-07-04 20:21] LABS: Appearance,Urine Clear (Clear); Bilirubin,Urine Negative (Negative); Blood,Urine Negative (Negative); Color,Urine Light Yellow; Glucose,Urine (UA) Negative (Negative); Ketones,Urine Negative (Negative); Leukocyte Esterase,Urine Negative (Negative); Nitrite,Urine Negative (Negative); Protein,Urine Negative (Negative); Specific Gravity,Urine 1.017 (1.001-1.035); Urobilinogen,Urine <2.0 mg/dL (<2.0)
[2021-07-04] MEDS: GABAPENTIN 300 MG CAP PO SCH (23:21)
[2021-07-04] MEDS: METOPROLOL SUCCINATE (ER) 25 MG TAB.ER.24H PO SCH (23:21)
[2021-07-04] MEDS: MULTIVITAMINS, THERA 1 EACH TAB PO SCH (23:21)
[2021-07-04] MEDS: TAMSULOSIN 0.4 MG CAP.ER.24H PO SCH (23:21)
[2021-07-04] MEDS: APIXABAN 5 MG TAB PO SCH (23:22)
[2021-07-04] MEDS: SODIUM BICARBONATE TAB 650 MG TAB PO SCH (23:25)
--- NOTE | 2021-07-05 08:23 | P.CRDCN ---
History of Present Illness Consult date: 07/05/21 Reason for Consult (text): TIA Chief complaint: Sudden onset dizziness History of present illness: 81-year-old gentleman with history of paroxysmal atrial fibrillation nonischemic cardiomyopathy status post AICD comes to comes to [facility] with symptoms of sudden onset dizziness and vertigo. Patient states that he woke up and got ready and was making breakfast for his and he developed sudden onset dizziness and felt that the room was spinning. This lasted for more than half an hour came to the ER and has been in the emergency room since He does not have chest pain difficulty in breathing or focal neurological deficits There is no history of leg edema PND or orthopnea Patient had a cardiac catheterization last year that showed normal coronary arteries He has history of atrial fibrillation and is currently on a liquid is for long- term anticoagulation Computed tomography scan of the brain revealed small nonsignificant cerebral aneurysm He does not have significant carotid stenosis he also had a CT angiogram of the brain At the time of my evaluation this morning he appears comfortable at rest and is free of symptoms We will obtain a 2-D echo and consider transesophageal echo tomorrow Review of Systems Constitutional: Denies chills. Denies fever. Eyes: Denies blurred vision. Denies pain. Ears, nose, mouth and throat: Denies headache. Denies sore throat. Significant for dizziness and vertigo Cardiovascular: Denies chest pain. Denies shortness of breath. Respiratory: Denies cough. Gastrointestinal: Denies abdominal pain. Denies diarrhea. Denies nausea. Denies vomiting. Musculoskeletal: Denies myalgias. Integumentary: Denies pruritus. Denies rash. Neurological: Denies numbness. Denies weakness. Psychiatric: Denies anxiety. Denies depression. Endocrine: Denies fatigue. Denies weight change. Genitourinary: Denies burning, hematuria, frequency of urination. Hematological: No anemia or excess bleeding. Past Medical History Past Medical History: Atrial Fibrillation, Heart Failure, Diabetes Mellitus, Hyperlipidemia, Hypertension, Prostate Disorder Additional Past Medical History / Comment(s): states recent SOB, fatigue, angina, leaking mitral valve, diet control diabetic, History of Any Multi-Drug Resistant Organisms: None Reported Past Surgical History: Appendectomy, Cholecystectomy, Heart Catheterization, Orthopedic Surgery, Pacemaker, Tonsillectomy Additional Past Surgical History / Comment(s): torn retina rt eye surgery x 2, massiel cataracts, colonoscopy. left shoulder rotator cuff Past Anesthesia/Blood Transfusion Reactions: Previous Problems w/ Anesthesia Additional Past Anesthesia/Blood Transfusion Reaction / Comment(s): diff waking up after colonoscopy-took long time Type of Cardiac Device: Permanent Pacemaker Device Placement Date:: 12/2019 Past Psychological History: No Psychological Hx Reported Smoking Status: Never smoker Past Alcohol Use History: None Reported Past Drug Use History: None Reported - Past Family History Daughter(s) Family Medical History: Cancer Brother(s) Family Medical History: Cancer Father Family Medical History: Cancer Medications and Allergies Home Medications Medication Instructions Recorded Confirmed Type Fenofibrate Nanocrystallized 145 mg PO DAILY 01/18/18 07/04/21 History [Tricor] Tamsulosin HCl [Flomax] 0.4 mg PO HS 01/18/18 07/04/21 History Apixaban [Eliquis] 5 mg PO BID 07/31/18 07/04/21 History Furosemide [Lasix] 40 mg PO DAILY 07/30/20 07/04/21 History Metoprolol Succinate (ER) [Toprol 25 mg PO BID 07/30/20 07/04/21 History Xl] Quinapril HCl [Accupril] 5 mg PO DAILY 07/30/20 07/04/21 History Cholecalciferol [Vitamin D3 (25 25 mcg PO DAILY 07/04/21 07/04/21 History Mcg = 1000 Iu)] Dulaglutide [Trulicity] 1.5 mg SQ MO 07/04/21 07/04/21 History Gabapentin [Neurontin] 300 mg PO QID 07/04/21 07/04/21 History Multivit-Min/FA/Lycopen/Lutein 1 tab PO HS 07/04/21 07/04/21 History [Centrum Silver Men Tablet] Sodium Bicarbonate Tab 650 mg PO HS 07/04/21 07/04/21 History Allergies Allergy/AdvReac Type Severity Reaction Status Date / Time morphine AdvReac Nausea & Verified 07/04/21 14:51 Vomiting Physical Exam Vitals: Vital Signs Temp Pulse Pulse Resp BP BP Pulse Ox 07/05/21 03:51 97.8 F 70 18 104/70 97 07/05/21 02:00 55 L 22 110/56 97 07/05/21 01:00 60 18 110/89 98 07/05/21 00:00 63 20 124/73 97 07/04/21 23:00 64 20 116/70 97 07/04/21 22:00 60 18 118/70 97 07/04/21 21:00 60 22 125/77 97 07/04/21 20:00 64 22 123/80 97 07/04/21 19:05 97.6 F 67 20 112/71 97 07/04/21 19:00 97.6 F 67 22 96/71 97 07/04/21 15:25 65 18 125/66 98 07/04/21 13:35 96.7 F L 76 18 131/77 97 07/04/21 12:55 96.7 F L 76 18 120/76 97 07/04/21 12:40 96.7 F L 76 18 120/76 97 07/04/21 11:58 96.7 F L 76 18 141/97 97 Intake and Output 07/04/21 07/05/21 07/05/21 22:59 06:59 14:59 Other: Weight 94.347 kg General: The patient is awake and alert, in no distress, and does not appear acutely ill. Skin: Skin is warm and dry and no rashes or lesions are noted. Eye: Pupils are equal, round and reactive to light, extra-ocular movements are intact; there is normal conjunctiva bilaterally. Ears, nose, mouth and throat: There are moist mucous membranes and no oral lesions. Neck: The neck is supple, there is no tenderness or JVD. Cardiovascular: Irregular[ No murmur, rub or gallop is appreciated.] Respiratory: Lungs are clear to auscultation, respirations are non-labored, breath sounds are equal. Gastrointestinal: Soft, non-distended, non-tender abdomen without masses or organomegaly noted. There is no rebound or guarding present. Bowel sounds are unremarkable. Back: There is no tenderness to palpation in the midline. There is no obvious deformity. Musculoskeletal: Normal ROM, no tenderness, There is no pedal edema. There is no calf tenderness or swelling. Extremities:[ No edema.] Vascular: [Femoral pulse is normal.][ Posterior tibial pulses are normal .][Dorsalis pedis is palpable.] Neurological: CN II-XII intact. There are no obvious motor or sensory deficits. Speech is normal. Psychiatric: Cooperative, appropriate mood & affect, normal judgment. Results 07/04/21 12:40 07/04/21 12:40 Cardiac Enzymes 07/04/21 07/04/21 Range/Units 12:40 12:40 AST 33 (17-59) U/L Troponin I <0.012 (0.000-0.034) ng/mL Coagulation 07/04/21 Range/Units 12:40 PT 12.2 H (9.0-12.0) sec APTT 26.9 (22.0-30.0) sec CBC 07/04/21 Range/Units 12:40 WBC 6.2 (3.8-10.6) k/uL RBC 4.53 (4.30-5.90) m/uL Hgb 14.2 (13.0-17.5) gm/dL Hct 42.8 (39.0-53.0) % Plt Count 206 (150-450) k/uL Comprehensive Metabolic Panel 07/04/21 Range/Units 12:40 Sodium 136 L (137-145) mmol/L Potassium 5.1 (3.5-5.1) mmol/L Chloride 104 (98-107) mmol/L Carbon Dioxide 22 (22-30) mmol/L BUN 35 H (9-20) mg/dL Creatinine 1.59 H (0.66-1.25) mg/dL Glucose 176 H (74-99) mg/dL Calcium 10.0 (8.4-10.2) mg/dL AST 33 (17-59) U/L ALT 19 (4-49) U/L Alkaline Phosphatase 30 L (38-126) U/L Total Protein 7.4 (6.3-8.2) g/dL Albumin 4.1 (3.5-5.0) g/dL Current Medications Generic Name Dose Route Start Last Admin Trade Name Freq PRN Reason Stop Dose Admin Apixaban 5 mg 07/04/21 21:00 07/04/21 23:22 Apixaban 5 Mg Tab PO 5 mg BID [facility] Administration Protocol Aspirin 325 mg 07/05/21 09:00 Aspirin 325 Mg Tab PO DAILY [facility] Atorvastatin Calcium 40 mg 07/04/21 15:00 07/04/21 15:20 Atorvastatin 40 Mg Tab PO 40 mg DAILY [facility] Administration Cholecalciferol 25 mcg 07/05/21 09:00 Cholecalciferol 25 Mcg (1000 Iu) Tablet PO DAILY JOSE Fenofibrate 160 mg 07/05/21 09:00 Fenofibrate 160 Mg Tab PO DAILY JOSE Furosemide 40 mg 07/05/21 09:00 Furosemide 40 Mg Tab PO DAILY JOSE Gabapentin 300 mg 07/04/21 22:00 07/04/21 23:21 Gabapentin 300 Mg Cap PO 300 mg QID JOSE Administration Lisinopril 5 mg 07/05/21 09:00 Lisinopril 5 Mg Tab PO DAILY JOSE Metoprolol Succinate 25 mg 07/04/21 21:00 07/04/21 23:21 Metoprolol Succinate (Er) 25 Mg Tab.Er.24h PO 25 mg BID JOSE Administration Multivitamins 1 each 07/04/21 21:00 07/04/21 23:21 Multivitamins, Thera 1 Each Tab PO 1 each HS JOSE Administration Sodium Bicarbonate 650 mg 07/04/21 21:00 07/04/21 23:25 Sodium Bicarbonate Tab 650 Mg Tab PO 650 mg HS JOSE Administration Tamsulosin HCl 0.4 mg 07/04/21 21:00 07/04/21 23:21 Tamsulosin 0.4 Mg Cap.Er.24h PO 0.4 mg HS JOSE Administration Intake and Output 07/04/21 07/05/21 07/05/21 22:59 06:59 14:59 Other: Weight 94.347 kg 07/04/21 12:40 07/04/21 12:40 EKG Interpretations (text) Paced rhythm Assessment and Plan Assessment: Dizziness and vertigo probably due to TIA Paroxysmal atrial fibrillation Nonischemic cardiomyopathy Hypertension [id number] diabetes Plan: Patient is stable clinically thromboembolic CVA is unlikely as patient is already on oral anticoagulant Patient is status post single chamber permanent pacemaker I will obtain a 2-D echo And consider a transesophageal echo tomorrow
[2021-07-05] MEDS ORDERED: ASPIRIN 325 MG TAB PO SCH (09:00)
[2021-07-05] MEDS: FUROSEMIDE 40 MG TAB PO SCH (09:48)
[2021-07-05] MEDS: GABAPENTIN 300 MG CAP PO SCH ×4 (09:48→21:37)
[2021-07-05] MEDS: FENOFIBRATE 160 MG TAB PO SCH (09:48)
[2021-07-05] MEDS: lisinopriL 5 MG TAB PO SCH (09:48)
[2021-07-05] MEDS: METOPROLOL SUCCINATE (ER) 25 MG TAB.ER.24H PO SCH ×2 (09:48→21:38)
[2021-07-05] MEDS: ATORVASTATIN 40 MG TAB PO SCH (09:49)
[2021-07-05] MEDS: APIXABAN 5 MG TAB PO SCH ×2 (09:49→21:38)
[2021-07-05] MEDS: CHOLECALCIFEROL 25 MCG (1000 IU) TABLET PO SCH (09:49)
--- NOTE | 2021-07-05 10:34 | P.NPCON ---
History of Present Illness - Reason for Consult chronic renal failure - History of Present Illness Reason for consultation: Chronic kidney disease History of present illness: Patient is a 81-year-old male seen in renal consultation for chronic kidney disease. Patient was seen and examined in the emergency room. Patient has chronic kidney disease stage IIIB with baseline creatinine in the range of 1.5-2 secondary to nephrosclerosis. Renal function is stable and at baseline. Patient presented to the hospital with dizziness. Patient states dizziness progressively got worse yesterday and felt the entire room spinning. He denies falling or passing out. He underwent CT angiogram on 07/04/2021 which revealed possible 3 mm fusiform aneurysm. Chest x-ray was benign. Brain CT showed no acute changes. Cardiology following. Echocardiogram is pending. Possible CHASITY tomorrow. Denies use of nonsteroidals. No vomiting or diarrhea. No edema. No hematuria. Patient does have history of diabetes. Vital signs are stable. General: The patient appeared well nourished and normally developed. HEENT: Head exam is unremarkable. LUNGS: Breath sounds decreased. HEART: Rate and Rhythm are regular. ABDOMEN: Soft, no distention. EXTREMITITES: No edema. Past Medical History Past Medical History: Atrial Fibrillation, Heart Failure, Diabetes Mellitus, Hyperlipidemia, Hypertension, Prostate Disorder Additional Past Medical History / Comment(s): states recent SOB, fatigue, angina, leaking mitral valve, diet control diabetic, History of Any Multi-Drug Resistant Organisms: None Reported Past Surgical History: Appendectomy, Cholecystectomy, Heart Catheterization, Orthopedic Surgery, Pacemaker, Tonsillectomy Additional Past Surgical History / Comment(s): torn retina rt eye surgery x 2, massiel cataracts, colonoscopy. left shoulder rotator cuff Past Anesthesia/Blood Transfusion Reactions: Previous Problems w/ Anesthesia Additional Past Anesthesia/Blood Transfusion Reaction / Comment(s): diff waking up after colonoscopy-took long time Type of Cardiac Device: Permanent Pacemaker Device Placement Date:: 12/2019 Past Psychological History: No Psychological Hx Reported Smoking Status: Never smoker Past Alcohol Use History: None Reported Past Drug Use History: None Reported - Past Family History Daughter(s) Family Medical History: Cancer Brother(s) Family Medical History: Cancer Father Family Medical History: Cancer Medications and Allergies Home Medications Medication Instructions Recorded Confirmed Type Fenofibrate Nanocrystallized 145 mg PO DAILY 01/18/18 07/04/21 History [Tricor] Tamsulosin HCl [Flomax] 0.4 mg PO HS 01/18/18 07/04/21 History Apixaban [Eliquis] 5 mg PO BID 07/31/18 07/04/21 History Furosemide [Lasix] 40 mg PO DAILY 07/30/20 07/04/21 History Metoprolol Succinate (ER) [Toprol 25 mg PO BID 07/30/20 07/04/21 History Xl] Quinapril HCl [Accupril] 5 mg PO DAILY 07/30/20 07/04/21 History Cholecalciferol [Vitamin D3 (25 25 mcg PO DAILY 07/04/21 07/04/21 History Mcg = 1000 Iu)] Dulaglutide [Trulicity] 1.5 mg SQ MO 07/04/21 07/04/21 History Gabapentin [Neurontin] 300 mg PO QID 07/04/21 07/04/21 History Multivit-Min/FA/Lycopen/Lutein 1 tab PO HS 07/04/21 07/04/21 History [Centrum Silver Men Tablet] Sodium Bicarbonate Tab 650 mg PO HS 07/04/21 07/04/21 History Allergies Allergy/AdvReac Type Severity Reaction Status Date / Time morphine AdvReac Nausea & Verified 07/04/21 14:51 Vomiting Physical Exam Vitals: Vital Signs Temp Pulse Pulse Resp BP BP Pulse Ox 07/05/21 03:51 97.8 F 70 18 104/70 97 07/05/21 02:00 55 L 22 110/56 97 07/05/21 01:00 60 18 110/89 98 07/05/21 00:00 63 20 124/73 97 07/04/21 23:00 64 20 116/70 97 07/04/21 22:00 60 18 118/70 97 07/04/21 21:00 60 22 125/77 97 07/04/21 20:00 64 22 123/80 97 07/04/21 19:05 97.6 F 67 20 112/71 97 07/04/21 19:00 97.6 F 67 22 96/71 97 07/04/21 15:25 65 18 125/66 98 07/04/21 13:35 96.7 F L 76 18 131/77 97 07/04/21 12:55 96.7 F L 76 18 120/76 97 07/04/21 12:40 96.7 F L 76 18 120/76 97 07/04/21 11:58 96.7 F L 76 18 141/97 97 Intake and Output 07/04/21 07/05/21 07/05/21 22:59 06:59 14:59 Other: Weight 94.347 kg Results - Lab Results Most recent lab results Calcium 10.0 mg/dL (8.4-10.2) 07/04/21 12:40 07/04/21 12:40 07/04/21 12:40 Assessment and Plan Plan: Assessment: 1. Chronic kidney disease stage IIIB with baseline creatinine in the range of 1.5-2 secondary to nephrosclerosis. GFR at baseline. UA benign. 2. Dizziness. Possible TIA. 3. Hypertension with chronic kidney disease. Stable. 4. Diabetes mellitus. 5. History of A. fib. Plan: Maintain Lasix for now. Follow-up morning labs. Follow-up echocardiogram. Thank you for the consultation. I will continue to follow the patient with you during his hospital stay.
--- NOTE | 2021-07-05 10:35 | P.CNNES ---
History of Present Illness Consult date: 07/05/21 Requesting physician: Sherry Hooper Reason for Consult: code stroke-non TPA candidate History of Present Illness: This is a 81-year-old gentleman medical history of atrial fibrillation on anticoagulation, coronary artery disease, diabetes mellitus, non-ischemic cardiomyopathy s/p pacemaker, hypertension, hyperlipidemia presented emergency department on 07/04/2021 for sudden onset of dizziness. Patient stated that around 9:30 in the morning on 07/04/2021, he was feeling dizzy, nauseous but denies vomiting. He describes the dizziness as room is spinning and worsened with any head position and moving around but is improved with laying still. Because of the dizziness and he was having trouble walking. Patient denies any focal weakness, numbness, any difficulty getting his words out, any difficulty swallowing, visual disturbance. He denies any recent sickness, fever, cough. He denies any head trauma. 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 He said he has some hearing loss because of his age but denies any worsening of his hearing recently. Today he feels his dizziness and is somewhat better compared to his initial presentation. He denies any history of stroke, TIA. Some of the Patient's home medications are on Eliquis 5 mg 1 tablet twice a day, gabapentin 300 mg 1 tablet 4 times a day, metoprolol, Lasix. Patient is not on any statins and is not on any aspirin. Some of the workup in the hospital consisted of: Initial vital signs as a blood pressure of 141/97, heart rate of 76, respiratory of 18, temperature of 96.7 Fahrenheit oral and pulse ox of 97% at room air. CBC with differential is unremarkable Chemistry panel is the creatinine is 1.59, BUN is 35, initial serum glucose is 176, AST of 33, ALT of 19. Urinalysis is negative for urinary tract infection [place] virus PCR was not detected. PT is 12.2, INR is 1.2, PTT is 26.9. CT of the head is reported as degenerative changes with no acute hemorrhage or mass effect. Correlate with MRI if concern for acute ischemia as clinically warranted. Prominence of the basilar tip. Small 3 mm aneurysm is not excluded. Personally reviewed the CT of the head there is no acute or subacute ischemia and there is no evidence of any acute or subacute intraparenchymal hemorrhage. Wall CT angiography of the head and neck was reported as no sizable aneurysm or vascular malformation. Carotid bifurcation patent bilaterally with no significant stenosis. There is fusiform prominence of the basilar tip measuring 3 mm correlate for fusiform aneurysm. Stroke code was activated and the ED team spoke with the the stroke attending (Dr. Finley). And no TPA since the patient is on the Eliquis. Review of Systems Review of system: The 12 point system was reviewed and apparent positive and negative per HPI. Past Medical History Past Medical History: Atrial Fibrillation, Heart Failure, Diabetes Mellitus, Hyperlipidemia, Hypertension, Prostate Disorder Additional Past Medical History / Comment(s): states recent SOB, fatigue, angina, leaking mitral valve, diet control diabetic, History of Any Multi-Drug Resistant Organisms: None Reported Past Surgical History: Appendectomy, Cholecystectomy, Heart Catheterization, Orthopedic Surgery, Pacemaker, Tonsillectomy Additional Past Surgical History / Comment(s): torn retina rt eye surgery x 2, massiel cataracts, colonoscopy. left shoulder rotator cuff Past Anesthesia/Blood Transfusion Reactions: Previous Problems w/ Anesthesia Additional Past Anesthesia/Blood Transfusion Reaction / Comment(s): diff waking up after colonoscopy-took long time Type of Cardiac Device: Permanent Pacemaker Device Placement Date:: 12/2019 Past Psychological History: No Psychological Hx Reported Smoking Status: Never smoker Past Alcohol Use History: None Reported Past Drug Use History: None Reported - Past Family History Daughter(s) Family Medical History: Cancer Brother(s) Family Medical History: Cancer Father Family Medical History: Cancer Medications and Allergies Home Medications Medication Instructions Recorded Confirmed Type Fenofibrate Nanocrystallized 145 mg PO DAILY 01/18/18 07/04/21 History [Tricor] Tamsulosin HCl [Flomax] 0.4 mg PO HS 01/18/18 07/04/21 History Apixaban [Eliquis] 5 mg PO BID 07/31/18 07/04/21 History Furosemide [Lasix] 40 mg PO DAILY 07/30/20 07/04/21 History Metoprolol Succinate (ER) [Toprol 25 mg PO BID 07/30/20 07/04/21 History Xl] Quinapril HCl [Accupril] 5 mg PO DAILY 07/30/20 07/04/21 History Cholecalciferol [Vitamin D3 (25 25 mcg PO DAILY 07/04/21 07/04/21 History Mcg = 1000 Iu)] Dulaglutide [Trulicity] 1.5 mg SQ MO 07/04/21 07/04/21 History Gabapentin [Neurontin] 300 mg PO QID 07/04/21 07/04/21 History Multivit-Min/FA/Lycopen/Lutein 1 tab PO HS 07/04/21 07/04/21 History [Centrum Silver Men Tablet] Sodium Bicarbonate Tab 650 mg PO HS 07/04/21 07/04/21 History Allergies Allergy/AdvReac Type Severity Reaction Status Date / Time morphine AdvReac Nausea & Verified 07/04/21 14:51 Vomiting Physical Examination - Vital Signs Vital Signs: Vital Signs Temp Pulse Pulse Resp BP BP Pulse Ox 07/05/21 03:51 97.8 F 70 18 104/70 97 07/05/21 02:00 55 L 22 110/56 97 07/05/21 01:00 60 18 110/89 98 07/05/21 00:00 63 20 124/73 97 07/04/21 23:00 64 20 116/70 97 07/04/21 22:00 60 18 118/70 97 07/04/21 21:00 60 22 125/77 97 07/04/21 20:00 64 22 123/80 97 07/04/21 19:05 97.6 F 67 20 112/71 97 07/04/21 19:00 97.6 F 67 22 96/71 97 07/04/21 15:25 65 18 125/66 98 07/04/21 13:35 96.7 F L 76 18 131/77 97 07/04/21 12:55 96.7 F L 76 18 120/76 97 07/04/21 12:40 96.7 F L 76 18 120/76 97 07/04/21 11:58 96.7 F L 76 18 141/97 97 Intake and Output 07/04/21 07/05/21 07/05/21 22:59 06:59 14:59 Other: Weight 94.347 kg GENERAL: The patient is lying in bed and is not in acute distress. CHEST: The heart rate is regular rate rhythm. No murmurs to auscultation. LUNG: Clear to auscultation bilaterally no wheezing noted throughout. Not lab ored breathing. ABDOMEN/GI: Bowel sounds present in all 4 quadrants. No tenderness to palpation throughout. NEUROLOGICAL: Higher mental function: The patient is awake, alert, oriented to self, place and time. Patient is following commands. No aphasia and no neglect. Cranial nerves: The pupils are round, equal and reactive to light and accommodation. Visual sahu are full to confrontation throughout. Extraocular movement is intact no nystagmus is noted. Facial sensation is normal to touch throughout. The facial strength is normal throughout. Hearing is moderately decreased bilaterally to hand rub. Tongue is midline and moved [id number] without any difficulty. No dysarthria is noted. Shoulder shrug is normal bilaterally. Motor: Gait is normal with normal arm swing but has mild episode of feeling dizzy at onset of walking that improved. The strength is 5 over 5 throughout. Normal tone and bulk. Cerebellum: Normal finger to nose heel to hooks bilaterally. Sensation: Sensation is normal to touch throughout. Reflexes (right/left): 2+ throughout. Plantars are downgoing bilaterally. Results - Laboratory Findings CBC and BMP: 07/04/21 12:40 07/04/21 12:40 Abnormal Lab Findings: Abnormal Labs 07/04/21 07/04/21 07/04/21 12:03 12:40 12:40 PT 12.2 H INR 1.2 H Sodium 136 L BUN 35 H Creatinine 1.59 H Glucose 176 H POC Glucose (mg/dL) 163 H Alkaline Phosphatase 30 L Assessment and Plan Assessment: Acute vertigo: Likely peripheral: possibly due to benign positional vertigo vs labryinthitis. Unlikely stroke or TIA. 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 Then the aspirin 325 mg was added which is new in addition to his home medication of Eliquis 5 mg 1 tablet twice a day. I stopped aspirin 325 mg daily since stroke is unlikely but if CT reveals stroke then will consider low dose ASA 81mg in addition. Was started Lipitor 40mg daily by ED team (was not on statins prior) and if repeat CT head is negative for stroke then from neurological perspective can lower it to 20mg daily. * Ordered repeat CT of the head. Cannot get MRI since has pacemaker. * 2-D echo, lipid panel is ordered and pending. * Patient hemoglobin A1c is 7.4 on 04/28/2021 therefore I would not repeat another one. * TSH is 0.997 on 04/28/2021 and the I would will not repeat it again. * PT, OT are consulted * Continue neuro checks * On cardiac monitoring * Cardiology is consulted by the primary team. * If patient continues to have vertigo recommend for patient to follow-up with ENT as outpatient and consider vestibular rehab therapy. 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 Finley): [facility] [phone]. * We'll defer the rest of medical management to the primary team * For DVT prophylaxis the patient is on Eliquis. The plan is discussed with the patient. Thank you for the consultation. Reji Branham M.D. Neuro-hospitalist Time with Patient: Greater than 30
[2021-07-05 11:09] LABS: African American GFR (CKD) 45 (>60 ml/min/1.73 sqM); Anion Gap 7 mmol/L; Blood Urea Nitrogen 34 mg/dL (9-20); Calcium 9.8 mg/dL (8.4-10.2); Carbon Dioxide 27 mmol/L (22-30); Chloride 103 mmol/L (98-107); Glucose 156 mg/dL (74-99); Magnesium 2.2 mg/dL (1.6-2.3); Non-African American GFR(CKD) 39 (>60 ml/min/1.73 sqM); Potassium 4.5 mmol/L (3.5-5.1); Sodium 137 mmol/L (137-145)
--- NOTE | 2021-07-05 11:57 | ECHOF ---
Referral Reason:COde stroke MEASUREMENTS -------- HEIGHT: 182.9 cm WEIGHT: 94.3 kg BP: 104/70 RVIDd: 3.5 cm (< 3.3) IVSd: 1.3 cm (0.6 - 1.1) LVIDd: 6.5 cm (3.9 - 5.3) LVPWd: 1.4 cm (0.6 - 1.1) IVSs: 1.4 cm LVIDs: 4.6 cm LVPWs: 1.5 cm LAESV Index (A-L): 56.75 ml/m Ao Diam: 3.9 cm (2.0 - 3.7) AV Cusp: 2.1 cm (1.5 - 2.6) LA Diam: 5.2 cm (2.7 - 3.8) MV EXCURSION: 26.036 mm (> 18.000) MV EF SLOPE: 127 mm/s (70 - 150) EPSS: 2.4 cm MV E David: 0.60 m/s MV DecT: 199 ms MV A David: 0.22 m/s MV E/A Ratio: 2.77 RAP: 5.00 mmHg RVSP: 34.48 mmHg FINDINGS -------- Atrial fibrillation. This was a technically adequate study. The left ventricle is moderately dilated. There is mild concentric left ventricular hypertrophy. Overall left ventricular systolic function is mild-moderately impaired with, an EF between 40 - 45 %. Apical septum LV wall motion is hypokinetic. [place] Hypokinesis. The right ventricle is mildly enlarged. LA is severely dilated >40 ml/m2 The right atrium is mildly enlarged. Interatrial and interventricular septum intact. The aortic valve is trileaflet and appears structurally normal. Trace amount of aortic regurgitatio n. There is no evidence of aortic stenosis. Nhpr-ld-fzeusmou mitral regurgitation is present. Mild tricuspid regurgitation present. There is mild pulmonary hypertension. The right ventricular systolic pressure, as measured by Doppler, is 34.48mmHg. There is no pulmonic regurgitation present. The aortic root size is normal. IVC Not well visulized. Echo free space may represent effusion or a pericardial fat pad. There is no pericardial effusion. CONCLUSIONS -------- 1. The left ventricle is moderately dilated. 2. There is mild concentric left ventricular hypertrophy. 3. Overall left ventricular systolic function is mild-moderately impaired with, an EF between 40 - 45 %. 4. Apical septum LV wall motion is hypokinetic. 5. [place] Hypokinesis. 6. The right ventricle is mildly enlarged. 7. LA is severely dilated >40 ml/m2 8. The right atrium is mildly enlarged. 9. Trace amount of aortic regurgitation. 10. Ixah-xk-kwpsnxeg mitral regurgitation is present. 11. Mild tricuspid regurgitation present. 12. There is mild pulmonary hypertension. 13. The right ventricular systolic pressure, as measured by Doppler, is 34.48mmHg. CH[employer] SALES CONSULTANT: Lexis Andersen RDCS
--- NOTE | 2021-07-05 13:01 | CT ---
EXAMINATION TYPE: CT brain wo con DATE OF EXAM: 07/05/2021 HISTORY: Vertigo. CT DLP: 1094.4 mGycm. Automated Exposure Control for Dose Reduction was Utilized. TECHNIQUE: CT scan brain without contrast. COMPARISON: CT brain from yesterday. FINDINGS: There is no acute intracranial hemorrhage or midline shift identified. There is mild to m oderate diffuse ventricular and sulcal prominence consistent with diffuse age-related cerebral atroph y. There is mild to moderate low-attenuation in the periventricular white matter consistent with chr onic small vessel ischemic change. Patchy cerumen in the deep external auditory canals bilaterally. T he globes are intact and the visualized sinuses are clear. The calvarium is intact. IMPRESSION: No acute intracranial hemorrhage or midline shift. There is mild to moderate diffuse ag e-related cerebral atrophy and chronic small vessel ischemic change redemonstrated. No significant ch alexis from one day earlier.
[2021-07-05 14:27] LABS: Chol/HDL Ratio 4.17 Ratio; LDL Cholesterol,Calculated 80.5 mg/dL (0.0-131.0)
--- NOTE | 2021-07-05 15:11 | PN ---
PROGRESS NOTE DATE OF SERVICE: 07/05/2021 This 75-year-old gentleman, being followed by Dr. Perry Nichols in the outpatient setting, was admitted with dizziness and weakness. Vertebrobasilar TIA is considered. Multiple consultants are following the patient closely. No chest pain. No palpitations. No fever. Repeat CT scan has been scheduled for this afternoon. Two-D echo showed ejection fraction 40% to 45%. PHYSICAL EXAMINATION: Alert and oriented x3. Pulse is 55, blood pressure 110/50, respiration 22, temperature 97.2, pulse ox 97% on room air. HEENT: Conjunctivae normal. NECK: No jugular venous distention. CARDIOVASCULAR: S1, S2 muffled. RESPIRATION: Breath sounds diminished at the bases. A few scattered rhonchi and crackles. ABDOMEN: Soft, nontender. LEGS: No edema. No swelling. NERVOUS SYSTEM: No focal deficit. LABS: CBC within normal limits. INR is 1.2. Sodium 136, creatinine is 1.59. ASSESSMENT: 1. Dizziness and weakness, possible acute vertebrobasilar stroke versus transient ischemic attack. 2. Rule out fusiform basilar artery aneurysm. 3. Increased creatinine with chronic kidney disease, stage 3. 4. Hyponatremia. 5. Diabetes mellitus, type 2. 6. History of atrial fibrillation. 7. History of congestive heart failure. 8. Hypertension. 9. Hyperlipidemia. 10.History of prostate disorder. 11.History of appendectomy. 12.Cholecystectomy. 13.History of pacemaker. 14.History of retinal detachment. 15.FULL CODE. RECOMMENDATIONS AND DISCUSSION: I recommend to continue current medications, continue with the monitoring, symptomatic treatment. Otherwise at this time repeat labs. Closely follow with multiple consultants. Prognosis guarded. Further recommendations to follow. MMODL / IJN: [id number] /
[2021-07-05 20:20] LABS: Glucose,Whole Blood 215 mg/dL (75-99)
[2021-07-05] MEDS: TAMSULOSIN 0.4 MG CAP.ER.24H PO SCH (21:37)
[2021-07-05] MEDS: SODIUM BICARBONATE TAB 650 MG TAB PO SCH (21:37)
[2021-07-05] MEDS: MULTIVITAMINS, THERA 1 EACH TAB PO SCH (21:38)
[2021-07-06 02:43] LABS: Albumin 3.8 g/dL (3.5-5.0); Calcium 9.5 mg/dL (8.4-10.2); Magnesium 2.1 mg/dL (1.6-2.3); Potassium 4.1 mmol/L (3.5-5.1); Total Bilirubin 0.6 mg/dL (0.2-1.3); Total Protein 6.7 g/dL (6.3-8.2)
[2021-07-06 06:05] LABS: Glucose,Whole Blood 130 mg/dL (75-99)
[2021-07-06 08:11] LABS: Basophils % (A) 0 %; Eosinophils # (A) 0.1 k/uL (0-0.7); Eosinophils % (A) 1 %; HCT 41.9 % (39.0-53.0); HGB 14.1 gm/dL (13.0-17.5); Lymphocytes % (A) 27 %; MCH 32.1 pg (25.0-35.0); MCHC 33.6 g/dL (31.0-37.0); MCV 95.6 fL (80.0-100.0); Mean Platelet Volume 7.4; Monocytes # (A) 0.5 k/uL (0-1.0); Monocytes % (A) 7 %; Neutrophils # (A) 4.7 k/uL (1.3-7.7); Neutrophils % (A) 63 %; Platelet Count 197 k/uL (150-450); RBC 4.38 m/uL (4.30-5.90); RDW 12.8 % (11.5-15.5); WBC 7.4 k/uL (3.8-10.6)
[2021-07-06 09:00] LABS: Calcium 9.5 mg/dL (8.4-10.2); Magnesium 2.1 mg/dL (1.6-2.3); Potassium 3.9 mmol/L (3.5-5.1)
[2021-07-06] MEDS: CHOLECALCIFEROL 25 MCG (1000 IU) TABLET PO SCH (09:07)
[2021-07-06] MEDS: METOPROLOL SUCCINATE (ER) 25 MG TAB.ER.24H PO SCH (09:07)
[2021-07-06] MEDS: ATORVASTATIN 40 MG TAB PO SCH (09:07)
[2021-07-06] MEDS: lisinopriL 5 MG TAB PO SCH (09:07)
[2021-07-06] MEDS: GABAPENTIN 300 MG CAP PO SCH ×2 (09:07→12:51)
[2021-07-06] MEDS: FENOFIBRATE 160 MG TAB PO SCH (09:07)
[2021-07-06] MEDS: APIXABAN 5 MG TAB PO SCH (09:07)
[2021-07-06] MEDS: FUROSEMIDE 40 MG TAB PO SCH (09:07)
[2021-07-06 11:39] LABS: Glucose,Whole Blood 133 mg/dL (75-99)
[2021-07-06 12:03] VITALS: RESP 16; TEMP 97.7
--- NOTE | 2021-07-06 12:07 | P.PN ---
Subjective Patient is seen in follow-up for chronic kidney disease. Renal function stable. Good urine output. Denies chest pain or shortness of breath. Blood pressure on the lower side. Vital signs are stable. Blood pressure in the lower side. General: The patient appeared well nourished and normally developed. HEENT: Head exam is unremarkable. LUNGS: Breath sounds decreased. HEART: Rate and Rhythm are regular. ABDOMEN: Soft, no distention. EXTREMITITES: No edema. Objective - Vital Signs Vital signs: Vital Signs Temp 97.7 F 07/06/21 08:00 Pulse 69 07/06/21 08:00 Resp 16 07/06/21 08:00 BP 92/67 07/06/21 08:00 Pulse Ox 97 07/06/21 08:00 Intake & Output 07/05/21 07/06/21 07/06/21 18:59 06:59 18:59 Other: Voiding Method Toilet Toilet # Voids 1 - Labs CBC & Chem 7: 07/06/21 07:48 07/06/21 07:48 Labs: Abnormal Lab Results - Last 24 Hours (Table) 07/05/21 07/05/21 07/06/21 Range/Units 09:52 20:19 01:54 BUN 35 H (9-20) mg/dL Creatinine 1.92 H (0.66-1.25) mg/dL Glucose 112 H (74-99) mg/dL POC Glucose (mg/dL) 215 H (75-99) mg/dL Alkaline Phosphatase 33 L (38-126) U/L HDL Cholesterol 34.30 L (40.00-60.00) mg/dL 07/06/21 07/06/21 07/06/21 Range/Units 06:04 07:48 11:38 BUN 34 H (9-20) mg/dL Creatinine 1.82 H (0.66-1.25) mg/dL Glucose 132 H (74-99) mg/dL POC Glucose (mg/dL) 130 H 133 H (75-99) mg/dL Alkaline Phosphatase (38-126) U/L HDL Cholesterol (40.00-60.00) mg/dL Assessment and Plan Plan: Assessment: 1. Chronic kidney disease stage IIIB with baseline creatinine in the range of 1.5-2 secondary to nephrosclerosis. GFR at baseline. UA benign. 2. Dizziness. Possible TIA versus vertigo. Neurology following. 3. Hypertension with chronic kidney disease. Blood pressure in the lower side. 4. Diabetes mellitus. 5. History of A. fib. 6. Acute on chronic systolic CHF with ejection fraction of 40-45% with mild to moderate mitral regurgitation. Plan: Stop lisinopril. Hold Lasix. Continue to monitor renal function and urine output. Monitor for contrast-induced acute kidney injury. Patient received IV contrast on 07/04/[address] angiogram.
--- NOTE | 2021-07-06 13:37 | P.PN ---
Subjective This is 81-year-old male with a past medical history of permanent atrial fibrillation, sick sinus syndrome status post pacemaker implantation 2019, m itral regurgitation, dyslipidemia, nonischemic cardiomyopathy. He follows in the office with Dr. Arriaza. We were consulted for atrial fibrillation. Patient initially presented to the emergency department with sudden onset of dizziness and vertigo which has resolved. CT brain negative for acute hemorrhage or mass effect. CT angiography of the head and neck was reported as no sizable aneurysm or vascular malformation. Carotid bifurcation patent bilaterally with no significant stenosis. There is fusiform prominence of the basilar tip measuring 3 mm correlate for fusiform aneurysm. Cardiac cath in 07/2020 with normal coronary arteries Patient seen and examined at bedside, no acute distress. He denies any further dizziness. He denies chest pain, shortness of breath, lightheadedness. Patient has maintained sinus mechanism. Echocardiogram revealed EF of 4045 percent, apical septum LV wall hypokinetic, apex hypokinesis, mild to moderate mitral regurgitation, mild tricuspid regurgitation. GENERAL: Well-appearing, well-nourished and in no acute distress. NECK: Supple without JVD or thyromegaly. LUNGS: Breath sounds clear to auscultation bilaterally. Respiration equal and unlabored. No wheezes, rales or rhonchi. HEART: Regular rate and rhythm without murmurs, rubs or gallops. S1 and S2 heard. EXTREMITIES: Normal range of motion, no edema. No clubbing or cyanosis. Peripheral pulses intact. ASSESSMENT Dizziness, Vertigo History of paroxysmal atrial fibrillation on Eliquis' Acute on Chronic kidney disease Sick sinus syndrome status post pacemaker implantation 2019 Nonischemic cardiomyopathy Dyslipidemia PLAN We will plan for CHASITY as an outpatient with Dr. Arriaza. Ok to discharge from cardiology perspective Continue home cardiac medications, ACEI due to acute kidney injury Nurse Practitioner note has been reviewed, I agree with a documented findings and plan of care. Patient was seen and examined. Objective - Vital Signs Vital signs: Vital Signs Temp 97.7 F 07/06/21 08:00 Pulse 69 07/06/21 08:00 Resp 16 07/06/21 08:00 BP 92/67 07/06/21 08:00 Pulse Ox 97 07/06/21 08:00 Intake & Output 07/05/21 07/06/21 07/06/21 18:59 06:59 18:59 Other: Voiding Method Toilet Toilet # Voids 1 1 - Labs CBC & Chem 7: 07/06/21 07:48 07/06/21 07:48 Labs: Abnormal Lab Results - Last 24 Hours (Table) 07/05/21 07/05/21 07/06/21 Range/Units 09:52 20:19 01:54 BUN 35 H (9-20) mg/dL Creatinine 1.92 H (0.66-1.25) mg/dL Glucose 112 H (74-99) mg/dL POC Glucose (mg/dL) 215 H (75-99) mg/dL Alkaline Phosphatase 33 L (38-126) U/L HDL Cholesterol 34.30 L (40.00-60.00) mg/dL 07/06/21 07/06/21 07/06/21 Range/Units 06:04 07:48 11:38 BUN 34 H (9-20) mg/dL Creatinine 1.82 H (0.66-1.25) mg/dL Glucose 132 H (74-99) mg/dL POC Glucose (mg/dL) 130 H 133 H (75-99) mg/dL Alkaline Phosphatase (38-126) U/L HDL Cholesterol (40.00-60.00) mg/dL
[2021-07-06 14:46] VITALS: PULSE 77
[2021-07-06 14:47] VITALS: BP 99/57
--- NOTE | 2021-07-06 15:42 | P.PN ---
Subjective Progress Note Date: 07/06/21 The patient is seen at bedside and feels he his dizziness is improved. He stated he is walking around without any issues. Denies of any new neurological problems. Objective - Vital Signs Vital signs: Vital Signs Temp 97.7 F 07/06/21 08:00 Pulse 69 07/06/21 08:00 Resp 16 07/06/21 08:00 BP 92/67 07/06/21 08:00 Pulse Ox 97 07/06/21 08:00 Intake & Output 07/05/21 07/06/21 07/06/21 18:59 06:59 18:59 Intake Total 240 Balance 240 Intake: Oral 240 Other: Voiding Method Toilet Toilet # Voids 1 1 - Exam GENERAL: The patient is lying in bed and is not in acute distress. NEUROLOGICAL: Higher mental function: The patient is awake, alert, oriented to self, place and time. Patient is following commands. No aphasia and no neglect. Cranial nerves: The pupils are round, equal and reactive to light and accommodation. Visual sahu are full to confrontation throughout. Extraocular movement is intact no nystagmus is noted. Facial sensation is normal to touch throughout. The facial strength is normal throughout. Hearing is moderately decreased bilaterally to hand rub. Tongue is midline and moved lqpi-jz-edgc without any difficulty. No dysarthria is noted. Shoulder shrug is normal bilaterally. Motor: Gait is deferred. The strength is 5 over 5 throughout. Normal tone and bulk. Cerebellum: Normal finger to nose heel to hooks bilaterally. Sensation: Sensation is normal to touch throughout. Reflexes (right/left): 2+ throughout. Plantars are downgoing bilaterally. WORK-UP: CBC with differential is unremarkable Chemistry panel is the creatinine is 1.59, BUN is 35, initial serum glucose is 176, AST of 33, ALT of 19. Urinalysis is negative for urinary tract infection [place] virus PCR was not detected. Lipid panel is triglyceride of 141, cholesterol 143, L DFL is 80, HDL is 34. PT is 12.2, INR is 1.2, PTT is 26.9. CT of the head is reported as degenerative changes with no acute hemorrhage or mass effect. Correlate with MRI if concern for acute ischemia as clinically warranted. Prominence of the basilar tip. Small 3 mm aneurysm is not excluded. Personally reviewed the CT of the head there is no acute or subacute ischemia and there is no evidence of any acute or subacute intraparenchymal hemorrhage. Repeat CT of the head is reported as no acute intracranial hemorrhage or midline shift. There is mild to moderate diffuse age-related cerebral atrophy and chronic small vessel ischemic changes redemonstrated. No significant change from one day earlier. CT angiography of the head and neck was reported as no sizable aneurysm or vascular malformation. Carotid bifurcation patent bilaterally with no significant stenosis. There is fusiform prominence of the basilar tip measuring 3 mm correlate for fusiform aneurysm. 2D echo: Is reported as mild concentric left ventricular hypertrophy. Ejection fraction of 40-45%. [place] hypokinesis. Left atrium is severely dilated. - Labs CBC & Chem 7: 07/06/21 07:48 07/06/21 07:48 Labs: Abnormal Lab Results - Last 24 Hours (Table) 07/05/21 07/05/21 07/06/21 Range/Units 09:52 20:19 01:54 BUN 35 H (9-20) mg/dL Creatinine 1.92 H (0.66-1.25) mg/dL Glucose 112 H (74-99) mg/dL POC Glucose (mg/dL) 215 H (75-99) mg/dL Alkaline Phosphatase 33 L (38-126) U/L HDL Cholesterol 34.30 L (40.00-60.00) mg/dL 07/06/21 07/06/21 07/06/21 Range/Units 06:04 07:48 11:38 BUN 34 H (9-20) mg/dL Creatinine 1.82 H (0.66-1.25) mg/dL Glucose 132 H (74-99) mg/dL POC Glucose (mg/dL) 130 H 133 H (75-99) mg/dL Alkaline Phosphatase (38-126) U/L HDL Cholesterol (40.00-60.00) mg/dL Assessment and Plan Assessment: Acute vertigo: Likely peripheral: possibly due to benign positional vertigo vs labryinthitis. 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 Then the aspirin 325 mg was added which is new in addition to his home medication of Eliquis 5 mg 1 tablet twice a day. I stopped aspirin 325 mg daily since stroke is unlikely. Was started Lipitor 40mg daily by ED team (was not on statins prior) and if repeat CT head is negative for stroke then from neurological perspective can lower it to 20mg daily. * Patient hemoglobin A1c is 7.4 on 04/28/2021 therefore I would not repeat another one. * TSH is 0.997 on 04/28/2021 and the I would will not repeat it again. * PT, OT are consulted * Continue neuro checks * On cardiac monitoring * Cardiology is consulted by the primary team. * If patient continues to have vertigo recommend for patient to follow-up with ENT as outpatient and consider vestibular rehab therapy. 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 Finley): [facility] [phone]. * We'll defer the rest of medical management to the primary team * For DVT prophylaxis the patient is on Eliquis. The plan is discussed with the patient. There is no further neurological work-up. Patient is clear for discharge from neurology side. Reji Branham M.D. Neuro-hospitalist Time with Patient: Less than 30
[2021-07-07] MEDS ORDERED: ATORVASTATIN 20 MG TAB PO SCH (09:00)
--- NOTE | 2021-07-07 21:54 | P.DS ---
Providers Date of admission: 07/04/21 14:49 Attending physician: David Ornelas MD Consults: 07/04/21 14:49 Consult Physician Urgent Consulting Provider: Deepali Moraes Consult Reason/Comments: code stroke - non TPA candidate Do you want consulting provider notified?: Yes, Notify in am 07/04/21 18:03 Consult Physician Routine Consulting Provider: Phyllis Hassan Consult Reason/Comments: afib Do you want consulting provider notified?: Yes Primary care physician: Perry Nichols Hospital Course: Final diagnosis Dizziness and weakness, resolved, stroke TIA ruled out, most likely vertigo per neurology Chronic kidney disease stage IIIB baseline creatinine between 1.5-2 Hyponatremia 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 Perry Nichols. Repeat metabolic panel in 3 days. Patient is recommended to have a [facility] outpatient [facility] as well. 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 Finley): [facility] [phone]. Patient is alert and oriented x3, and was evaluated by PT/OT who recommended home on discharge. Patient has denies further episodes of dizziness at rest or with ambulation. Hospital Course This is a pleaseant 81 year old male who presents to the with stroke like symptoms of generalized dizziness and weakness. He does deny loss of consciousness, headache, visual changes, chest pain, cough, or shortness of breath. Denies fever or chills. Brain CT on admission shows degenerative change with no acute hemorrhage or mass effect. Correlate with MRI if concern for acute ischemia is warranted. Prominence of the basilar tip, small 3 mm aneurysm not excluded. CT angiography shows no sizeable aneurysm or vascular malformation, carotid bifurcations are patent bilaterally with no significant stenosis, there is fusiform prominence of the basilar tip measuring 3 mm correlate for fusiform aneurysm. Patient admitted with cardiology, neurology, and nephrology consultation. Echocardiogram performed shoes an EF of 40-45% with mild concentric left ventricular hypertrophy, mild-moderately impaired systolic dysfunction, apical septum LV wall motion is hypokinetic, apex hypokinesis, severely dilated LA, mild to moderate mitral regurgitation, mild pulmonary hypertension, mild mitral regurgitation. Blood count unremarkable. INR 1.2, sodium 136, BUN 35, creatinine 1.59, blood sugar in the 160s, alk phos 130. Cholesterol panel shows triglycerides of 141, cholesterol 143, HDL 34.30, LDL 80.5. Urinalysis negative, coronavirus not detected. Repeat brain CT was negative for acute intracranial hemorrhage or midline shift there was mild to moderate diffuse age-related cerebral atrophy and chronic small vessel ischemic changes redemonstrated. Accupril was discontinued due to creatinine which most recent 1.82 on discharge. Can be resumed outpatient if needed when creatinine stabilizes. Lasix is also on hold for 3-4 days. 07/06/2020 Patient presented to the hospital with dizziness and weakness. Repeat brain CT was negative for acute intracranial hemorrhage or midline shift there was mild to moderate diffuse age-related cerebral atrophy and chronic small vessel ischemic changes redemonstrated. Nephrology evaluated the patient and recommended echocardiogram and continue on Lasix with a repeat creatinine. Echocardiogram revealed an EF of 40-45% with apical septum LV wall motion hypokinetic, and apex hypokinesis. LA is severely dilated a greater than 40. There is mild to moderate mitral regurgitation, mild pulmonary hypertension. Repeat labs today show a creatinine of 1.82, BUN 34, glucose in the 130s, mag 2.1, blood count panel unremarkable. Patient is hoping to be discharged home today. Blood pressure on the softer side at 92/57, 97% on room air. Afebrile. He was evaluated by PT and OT who are recommending home on discharge. Please see medication reconciliation for a list of current medications. Thank you for allowing us to participate in the care of this patient. Patient Condition at Discharge: Fair Plan - Discharge Summary Discharge Rx Participant: No New Discharge Prescriptions: New Atorvastatin [Lipitor] 40 mg PO DAILY #30 tab Furosemide [Lasix] 40 mg PO DAILY #30 tablet Continue Fenofibrate Nanocrystallized [Tricor] 145 mg PO DAILY Tamsulosin HCl [Flomax] 0.4 mg PO HS Apixaban [Eliquis] 5 mg PO BID Metoprolol Succinate (ER) [Toprol XL] 25 mg PO BID Dulaglutide [Trulicity] 1.5 mg SQ MO Sodium Bicarbonate Tab 650 mg PO HS Cholecalciferol [Vitamin D3 (25 Mcg = 1000 Iu)] 25 mcg PO DAILY Gabapentin [Neurontin] 300 mg PO QID Multivit-Min/FA/Lycopen/Lutein [Centrum Silver Men Tablet] 1 tab PO HS Discontinued Quinapril HCl [Accupril] 5 mg PO DAILY Furosemide [Lasix] 40 mg PO DAILY Discharge Medication List Fenofibrate Nanocrystallized [Tricor] 145 mg PO DAILY 01/18/18 [History] Tamsulosin HCl [Flomax] 0.4 mg PO HS 01/18/18 [History] Apixaban [Eliquis] 5 mg PO BID 07/31/18 [History] Metoprolol Succinate (ER) [Toprol XL] 25 mg PO BID 07/30/20 [History] Cholecalciferol [Vitamin D3 (25 Mcg = 1000 Iu)] 25 mcg PO DAILY 07/04/21 [History] Dulaglutide [Trulicity] 1.5 mg SQ MO 07/04/21 [History] Gabapentin [Neurontin] 300 mg PO QID 07/04/21 [History] Multivit-Min/FA/Lycopen/Lutein [Centrum Silver Men Tablet] 1 tab PO HS 07/04/21 [History] Sodium Bicarbonate Tab 650 mg PO HS 07/04/21 [History] Atorvastatin [Lipitor] 40 mg PO DAILY #30 tab 07/06/21 [Rx] Furosemide [Lasix] 40 mg PO DAILY #30 tablet 07/06/21 [Rx] Follow up Appointment(s)/Referral(s): Perry Nichols MD [Primary Care Provider] - 07/08/21 11:20 am Darinel Molina DO [STAFF PHYSICIAN] - 08/02/21 9:00 am Allen Arriaza MD [STAFF PHYSICIAN] - 07/12/21 8:45 am Ambulatory/Diagnostic Orders: Basic Metabolic Panel [LAB.AMB] Time Frame: 3 Days, Location: None Selected Patient Instructions/Handouts: Transesophageal Echocardiogram (GEN), Vertigo (DC), Dizziness (GEN) Activity/Diet/Wound Care/Special Instructions: Outpatient CHASITY with Dr Arriaza Resume lasix 40 mg po Daily in 3-4 days Regarding 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 Finley): [facility] [phone]. Discharge Disposition: HOME SELF-CARE
== END 2021-07-06 15:52 | disposition home or self-care (01) ==
LOC: EC 11:56 → 3SCARD 14:49 → INTOOBSV 14:49 → 3SCARD 15:06 → UNDODISIN 07-06 15:52
PROVIDERS: ADMIT Internal Medicine; ATTEND Internal Medicine
DX: R42 Dizziness and giddiness (principal); R53.1 Weakness; I13.0 Hypertensive heart and chronic kidney disease with heart failure and stage 1 through stage 4 chronic kidney disease, or unspecified chronic kidney disease; E11.22 Type 2 diabetes mellitus with diabetic chronic kidney disease; I50.43 Acute on chronic combined systolic (congestive) and diastolic (congestive) heart failure; N18.32 Chronic kidney disease, stage 3b; E87.1 Hypo-osmolality and hyponatremia; I48.0 Paroxysmal atrial fibrillation; I48.21 Permanent atrial fibrillation; I49.5 Sick sinus syndrome; I27.20 Pulmonary hypertension, unspecified; I99.8 Other disorder of circulatory system; I25.10 Atherosclerotic heart disease of native coronary artery without angina pectoris; E78.5 Hyperlipidemia, unspecified; I42.8 Other cardiomyopathies; N42.9 Disorder of prostate, unspecified; H33.20 Serous retinal detachment, unspecified eye; I08.1 Rheumatic disorders of both mitral and tricuspid valves; H91.90 Unspecified hearing loss, unspecified ear; R11.2 Nausea with vomiting, unspecified; R06.02 Shortness of breath; R53.83 Other fatigue; R51.9 Headache, unspecified; R26.2 Difficulty in walking, not elsewhere classified; H53.8 Other visual disturbances; Z20.822 Contact with and (suspected) exposure to COVID-19; Z71.9 Counseling, unspecified; Z79.01 Long term (current) use of anticoagulants; Z79.82 Long term (current) use of aspirin; Z79.84 Long term (current) use of oral hypoglycemic drugs; Z79.899 Other long term (current) drug therapy; Z88.5 Allergy status to narcotic agent; Z90.49 Acquired absence of other specified parts of digestive tract; Z95.810 Presence of automatic (implantable) cardiac defibrillator; Z80.9 Family history of malignant neoplasm, unspecified
CPT/HCPCS: 99285; 36415; 93005; 97161; 97166; 80061; 80053 ×2; 80048 ×2; 83735 ×2; 84484; 85025 ×2; 85610; 85730; 81003; 87635; 71046; 70496; 70450 ×2; 70498; G0378 ×3; C8929; Q9967; 93306

== ENCOUNTER 2021-07-20 08:03 | Day surgery (SDC) | payer MEDICARE ==
[2021-07-14 16:01] VITALS: BMI 28.2
[2021-07-20 08:30] LABS: Glucose,Whole Blood 139 mg/dL (75-99)
[2021-07-20 08:36] VITALS: RESP 18; TEMP 98
[2021-07-20] MEDS ORDERED: SODIUM CHLORIDE 0.9% 500 ML 500 ML IV ONE (08:36)
[2021-07-20] MEDS ORDERED: fentaNYL (PF) 50 MCG/ML 2 ML AMP ONE (10:00)
[2021-07-20] MEDS: BENZOCAINE SPRAY 1 CAN MUCOUS MEM ONE ×2 (10:16→10:25)
[2021-07-20] MEDS ORDERED: MIDAZOLAM 2 MG/2 ML VIAL IVP ONE (10:25)
[2021-07-20] MEDS ORDERED: fentaNYL (PF) 50 MCG/ML 2 ML AMP IVP ONE (10:29)
[2021-07-20 11:48] VITALS: BP 90/50; PULSE 64
--- NOTE | 2021-07-20 13:04 | ECHOT ---
TRANSESOPHAGEAL ECHOCARDIOGRAM INDICATION: TIA. PROCEDURE NOTE: After obtaining informed consent, transesophageal echocardiogram was performed in left lateral position using an Omniplane probe. Local and IV sedation was obtained using Xylocaine spray, 2 mg of Versed and 25 mcg of fentanyl. Patient tolerated the procedure well without any obvious immediate complications. Two-D, M-mode, color Doppler and spectral analysis has been performed. FINDINGS: 1. There is no evidence of [id number]-hddfa shunt by color-flow Doppler or lgbpw-ci-bvty shunt by agitated saline contrast study across the interatrial septum. 2. There is no intracardiac thrombus within the left atrial appendage, left atrium, right atrium, right ventricle or left ventricle. 3. Left ventricle appears mildly enlarged with moderate LV dysfunction with ejection fraction of 40% to 45%. 4. Right ventricle has normal size and systolic function. 5. Left atrium appears mildly enlarged. 6. Mitral valve shows moderate central mitral regurgitation. 7. Tricuspid valve shows mild tricuspid regurgitation. 8. Aortic valve is a 3-leaflet valve. There is no evidence of aortic stenosis or regurgitation. 9. Aorta shows mild to moderate atherosclerotic changes. CONCLUSIONS: No intracardiac source for thromboembolic CVA. MMODL / IJN: [id number] /
== END 2021-07-20 12:06 | disposition home or self-care (01) ==
LOC: CATHCVL 08:03
PROVIDERS: ATTEND Internal Medicine Cardiovascular Disease
DX: G45.9 Transient cerebral ischemic attack, unspecified (principal); Z20.822 Contact with and (suspected) exposure to COVID-19
CPT/HCPCS: 93312; 93320; 93325; 87635; J2250; J3010

== ENCOUNTER → 2022-01-25 | Outpatient (CLI) | payer MEDICARE ==
[2022-01-25 14:45] LABS: Basophils # (A) 0.04 X 10*3/uL (0.00-0.10); Basophils % (A) 0.7 %; Eosinophils # (A) 0.09 X 10*3/uL (0.04-0.35); Eosinophils % (A) 1.5 %; HCT 41.4 % (39.6-50.0); HGB 13.5 g/dL (13.0-17.0); Immature Grans, Automated 0.3 %; Lymphocytes # (A) 1.63 X 10*3/uL (0.90-5.00); Lymphocytes % (A) 27.1 %; MCH 31.5 pg (27.0-32.0); MCHC 32.6 g/dL (32.0-37.0); MCV 96.7 fL (80.0-97.0); Mean Platelet Volume 10.3 fL (9.5-12.2); Monocytes # (A) 0.59 X 10*3/uL (0.20-1.00); Monocytes % (A) 9.8 %; NRBC Per 100 WBC 0 /100 WBCS (0.0-0.0); Neutrophils # (A) 3.64 X 10*3/uL (1.80-7.70); Neutrophils % (A) 60.6 %; Platelet Count 240 X 10*3/uL (140-440); RBC 4.28 X 10*6/uL (4.40-5.60); RDW 12.7 % (11.5-14.5); WBC 6.01 X 10*3/uL (4.50-10.00)
[2022-01-25 15:42] LABS: INR 1.15 (0.90-1.11); Prothrombin Time 12.9 sec (9.9-11.9)
[2022-01-25 16:24] LABS: African American GFR (CKD) 41.4 (60.0-200.0); Anion Gap 7.5 mmol/L (10.00-18.00); BUN/Creat Ratio 17.18 Ratio (12.00-20.00); Blood Urea Nitrogen 30.4 mg/dL (9.0-27.0); Calcium 9.5 mg/dL (8.7-10.3); Carbon Dioxide 27.1 mmol/L (20.0-27.5); Non-African American GFR(CKD) 35.7 (60.0-200.0); Potassium 4.7 mmol/L (3.5-5.5)
== END | disposition home or self-care (01) ==
LOC: LABPAT 09:08
PROVIDERS: ATTEND Orthopaedic Surgery
DX: Z01.818 Encounter for other preprocedural examination (principal); I47.2 Ventricular tachycardia; I44.4 Left anterior fascicular block; M17.11 Unilateral primary osteoarthritis, right knee; R94.31 Abnormal electrocardiogram [ECG] [EKG]; Z22.322 Carrier or suspected carrier of Methicillin resistant Staphylococcus aureus
CPT/HCPCS: 80048; 85025; 85610; 87070; 93005

== ENCOUNTER 2022-02-14 08:09 | Day surgery (SDC) | payer MEDICARE ==
[2022-02-11 08:24] VITALS: BMI 27.1
--- NOTE | 2022-02-13 23:42 | HP ---
HISTORY AND PHYSICAL DATE OF SURGERY: 02/14/2022 HISTORY OF PRESENT ILLNESS: Car Escamilla is a 81-year-old patient seen with progressive symptomatic right knee osteoarthritis. We discussed options. The patient to proceed with right total knee arthroplasty. Consent was obtained. Cardiac clearance was provided by Dr. Arriaza. PAST MEDICAL HISTORY: Cardiovascular disease, hypertension, hyperlipidemia, atrial fibrillation. PAST SURGICAL HISTORY: Cholecystectomy. DAILY MEDICATIONS: 1. Tricor. 2. Eliquis. 3. Lasix. 4. Lipitor. 5. Metoprolol. 6. Quinapril. ALLERGIES: None. SOCIAL HISTORY: Denies tobacco use. PHYSICAL EVALUATION OF THE RIGHT KNEE: Range of motion is negative 4/5 to 110. Mild effusion. Tenderness, medial joint line. Crepitus, medial patellofemoral compartments with range of motion. Pain with patellofemoral compression. Ligaments stable. Hip rotation without pain. Distal neurovascular exam is intact. RADIOGRAPHS: Right knee radiographs reveal severe osteoarthritic changes. IMPRESSION: 1. Right knee osteoarthritis. 2. Hypertension. 3. Hyperlipidemia. 4. Atrial fibrillation. PLAN: Right total knee arthroplasty. MMODL / IJN: [id number] /
[~2022-02-14 08:09] MED LIST changes: +ACETAMINOPHEN TAB 500 MG TAB PO PRN; -ALPRAZolam 0.25 MG TAB PO PRN; -ALPRAZolam 0.5 MG TAB PO PRN; -ASPIRIN 325 MG TAB PO STA; -ATORVASTATIN 80 MG TAB PO STA; +DEXAMETHASONE SOD PHOSPHATE 4 MG/ML 1 ML VIAL IV ONE; -HEPARIN SODIUM,PORCINE 10,000 UNIT in SODIUM CHLORIDE 0.9% 1,000 ML IRRIGATION PRN; -HEPARIN SODIUM,PORCINE 2,500 UNIT in SODIUM CHLORIDE 0.9% 250 ML IRRIGATION PRN; +MELOXICAM 7.5 MG TAB PO PRN; +ONDANSETRON 4 MG/2 ML VIAL IVP ONE; -SODIUM CHLORIDE 0.9% 1,000 ML in EMPTY BAG 1 BAG IV ONE; +TRANEXAMIC ACID IN NACL,ISO-OS 1,000 MG in SALINE 1 100ML.BAG IVPB PRN
[2022-02-14] MEDS: LACTATED RINGERS 1,000 ML IV SCH (09:02)
[2022-02-14 09:05] LABS: Glucose,Whole Blood 131 mg/dL (70-110)
[2022-02-14] MEDS ORDERED: MIDAZOLAM 2 MG/2 ML VIAL IV ONE (09:19)
[2022-02-14] MEDS ORDERED: DEXAMETHASONE SOD PHOSPHATE 4 MG/ML 1 ML VIAL ONE (09:47)
[2022-02-14] MEDS ORDERED: ROPIVACAINE 5 MG/ML 30 ML VIAL ONE (09:47)
[2022-02-14] MEDS ORDERED: MIDAZOLAM 2 MG/2 ML VIAL ONE (09:47)
[2022-02-14] MEDS ORDERED: TRANEXAMIC ACID IN NACL,ISO-OS 1,000 MG/100 ML BAG ONE (09:47)
[2022-02-14] MEDS ORDERED: ePHEDrine 50 MG/ML 1 ML VIAL ONE (09:47)
[2022-02-14] MEDS ORDERED: PROPOFOL 10 MG/ML 20 ML VIAL IV ONE (09:47)
[2022-02-14] MEDS ORDERED: ceFAZolin 1,000 MG in SODIUM CHLORIDE 0.9% 1,000 ML IRRIGATION ONE (10:00)
[2022-02-14] MEDS ORDERED: HYDROcodone/APAP 5-325MG 1 EACH TAB PO PRN ×2 (11:27)
[2022-02-14] MEDS ORDERED: ONDANSETRON 4 MG/2 ML VIAL IVP PRN (11:27)
[2022-02-14] MEDS ORDERED: HYDROmorphone 0.5 MG/0.5 ML SYRINGE IVP PRN ×3 (11:27)
[2022-02-14] MEDS ORDERED: NALOXONE 0.4 MG/ML 1 ML VIAL IV PRN (11:27)
--- NOTE | 2022-02-14 11:27 | P.OP ---
Date of Procedure: 02/14/22 Preoperative Diagnosis: Right knee osteoarthritis Postoperative Diagnosis: Right knee osteoarthritis Procedure(s) Performed: Right total knee arthroplasty Implants: 1. Depuy attune size 7 right cruciate retaining cemented femur 2. Depuy attune size 7 fixed bearing cemented tibial baseplate 3. Depuy attune size 7 fixed bearing cruciate retaining 10 mm polyethylene tibial insert 4. Depuy attune 41 mm all polyethylene cemented patella Anesthesia: regional (Abductor canal catheter, Ipack block), spinal Surgeon: Nayan Chappell Insurance Verification Representative #1: Nick Sierra Estimated Blood Loss (ml): 45 Pathology: other (Bone) Condition: stable Disposition: PACU Indications for Procedure: 81-year-old patient seen with symptomatic right knee osteoarthritis. After treatment options discussed, he elected to proceed with total knee arthroplasty. Operative Findings: See description of procedure Description of Procedure: Patient was taken to the operative suite after having an adductor canal catheter placed by the department of anesthesia as well as an Ipack block for postoperative pain management. Patient underwent a spinal anesthetic by the department of anesthesia. Patient was given preoperative IV intake antibiotics and TXA. A well-padded tourniquet was placed about the right lower extremity. The lower extremity was then prepped and draped in the normal sterile orthopedic fashion. The extremity was elevated, a tourniquet was insufflated to 300. A standard anterior incision was made sharply through skin. Dissection was taken down through the subcutaneous soft tissues down to the extensor mechanism. A medial arthrotomy was performed, patella was everted and knee was flexed. There was advanced osteoarthritis noted. I introduced my distal intramedullary f emoral drill. I then introduced the distal femoral cutting jig. Geovany HUTCHINSON secured the cutting jig with 2 pins. I held retractors in position while Geovany HUTCHINSON performed the distal femoral resection through the guide area we now removed her distal femoral cutting guide. We now placed our 4-in-1 femoral cutting block and positioned and it was secured with 2 pins by Geovany HUTCHINSON while I held the block in position. The distal femoral finishing was now completed. A proximal tibial cutting guide was positioned. I held the guide in the appropriate position with both hands well Geovany HUTCHINSON inserted stabilizing pins into the guide. Proximal tibial cut was made. We now placed a trial femoral component into position, along with an appropriate size tibial tray and insert. We now took the knee through range of motion and had full extension good flexion and good overall soft tissue balance noted. The patella was everted and stabilized with 2 towel clips held by Geovany HUTCHINSON while I performed a flush with patellar quad tendon utilizing a fresh sawblade. We templated the patella, appropriate drill holes were made. An appropriate trial patella was positioned, knee was taken through full range of motion with the patella tracking very nicely. The trial patella was removed. Drill holes were made through the femoral component. All trial components were removed after ma rking off the appropriate rotation of the tibia. Retractors were now positioned along the proximal tibia. An appropriate keel punch was made with the appropriate size tibial guide by myself on Geovany HUTCHINSON assisted by holding retractors. At this point appropriate size implants were chosen and opened. The joint was irrigated copiously with pulse lavage mechanical irrigation. The posterior capsule was infiltrated with local analgesic. The wound was irrigated with pulse lavage mechanical irrigation. We mixed antibiotic methylmethacrylate. We placed the knee into flexion. We placed multiple retractors assisted by Geovany HUTCHINSON to expose the proximal tibia. Once the methyl methacrylate was ready, the tibial component was cemented into place removing any excess methylmethacrylate form by both myself and Geovany HUTCHINSON. The femoral component was cemented into place removing the removing any excess methylmethacrylate performed by both myself and Geovany HUTCHINSON. We then inserted the appropriate size polyethylene tibial insert. We made sure that it was locked into position. We took the knee into full extension, and then back in a flexion making sure we had removed any excess methylmethacrylate. The patellar component was then cemented down and secured with clamp. Excess methylmethacrylate removed. We kept the knee in full extension, patellar clamp in position until methylmethacrylate had hardened. Once it had hardened the patellar clamp was removed. The knee was taken through full range of motion. The patella tracked nicely. There was good soft tissue balancing. The tourniquet was now released. Additional hemostasis was achieved via electrocautery. A second gram of TXA was given. The wound again was irrigated with pulse lavage mechanical irrigation. The superficial soft tissues were infiltrated local analgesic. The extensor mechanism was repaired with Ethibond suture. We checked the repair with range of motion and it was stable. The subcutaneous soft tissues were repaired with Vicryl in layers. The skin was approximated with pernio/Dermabond. Sterile dressings were applied followed by loose web roll and Brennan bandage. The patient was transferred to a bed, and taken to recovery in stable and satisfactory condition. Geovany HUTCHINSON assisted with this complex procedure.
[2022-02-14] MEDS: fentaNYL (PF) 50 MCG/ML 2 ML AMP IV PRN ×2 (12:03→12:12)
[2022-02-14] MEDS ORDERED: ROPIVACAINE 0.2%-NS ON-Q PUMP 2 MG/ML EACH MISCELLANE ONE (12:09)
[2022-02-14] MEDS ORDERED: LACTATED RINGERS 1,000 ML IV ONE ×2 (12:43)
--- NOTE | 2022-02-14 12:47 | XR ---
EXAMINATION TYPE: XR knee limited RT DATE OF EXAM: 02/14/2022 COMPARISON: NONE TECHNIQUE: Two views submitted HISTORY: Post op FINDINGS: There is a prosthetic knee in near anatomic alignment. There is soft tissue edema and emphysema. IMPRESSION: 1. Postoperative change. Appears in near-anatomic alignment
[2022-02-14] MEDS ORDERED: ceFAZolin 10 GM VIAL IVPB ONE (15:57)
[2022-02-14 19:02] LABS: Glucose,Whole Blood 181 mg/dL (70-110)
[2022-02-14] MEDS ORDERED: TAMSULOSIN 0.4 MG CAP.ER.24H PO SCH (21:00)
[2022-02-14] MEDS ORDERED: ATORVASTATIN 40 MG TAB PO SCH (21:00)
[2022-02-14] MEDS ORDERED: MULTIVITAMINS, THERA 1 EACH TAB PO SCH (21:00)
[2022-02-14] MEDS ORDERED: SENNOSIDES-DOCUSATE SODIUM 1 EACH TAB PO SCH (21:00)
[2022-02-14] MEDS ORDERED: SODIUM BICARBONATE TAB 650 MG TAB PO SCH (21:00)
--- NOTE | 2022-02-14 21:10 | P.ANPRN ---
Procedure Note - Anesthesia - Nerve Block Performed Right Adductor Canal Infusion Time Out Performed: Yes Date of Procedure: 02/14/22 Procedure Start Time: Procedure Stop Time: Location of Patient: PreOp Indication: Acute Post-Operative Pain, Requested by Surgeon Sedation Type: Sedate with meaningful contact maintained Preparation: Sterile Prep, Sterile Dressing Position: Supine Catheter: Indwelling Needle Types: Pajunk Needle Gauge: 21 Ultrasound used to visualize needle placement: Yes Ultrasound used to observe medication spread: Yes Blood Aspirated: No Pain Paresthesia on Injection Noted: No Resistance on Injection: Normal Image Stored and Saved: Yes Events: Uneventful and Well Tolerated (ropi .5% 20cc)
--- NOTE | 2022-02-14 21:11 | P.ANPRN ---
Procedure Note - Anesthesia - Nerve Block Performed Right Maryck Single Time Out Performed: Yes Date of Procedure: 02/14/22 Procedure Start Time: : Procedure Stop Time: :33 Location of Patient: PreOp Indication: Acute Post-Operative Pain, Requested by Surgeon Sedation Type: Sedate with meaningful contact maintained Preparation: Sterile Prep Position: Supine Needle Types: Pajunk Needle Gauge: 21 Ultrasound used to visualize needle placement: Yes Ultrasound used to observe medication spread: Yes Blood Aspirated: No Pain Paresthesia on Injection Noted: No Resistance on Injection: Normal Image Stored and Saved: Yes Events: Uneventful and Well Tolerated (ropi .5% 25cc plus dexamethasone 4mg)
[2022-02-14 21:46] LABS: Glucose,Whole Blood 218 mg/dL (70-110)
[2022-02-14] MEDS: INSULIN ASPART (NovoLOG) 100 UNIT/ML VIAL SQ SCH (22:15)
[2022-02-14] MEDS: ENOXAPARIN 30 MG/0.3 ML SYRINGE SQ SCH (22:15)
[2022-02-14] MEDS: GABAPENTIN 400 MG CAP PO SCH (22:21)
[2022-02-14] MEDS: SODIUM CHLORIDE 0.9% 1,000 ML IV SCH (22:21)
[2022-02-15 07:08] LABS: Glucose,Whole Blood 214 mg/dL (70-110)
[2022-02-15] MEDS: GABAPENTIN 400 MG CAP PO SCH ×2 (08:14→12:27)
[2022-02-15] MEDS: LACTATED RINGERS 1,000 ML IV SCH (08:14)
[2022-02-15] MEDS: ENOXAPARIN 30 MG/0.3 ML SYRINGE SQ SCH (08:15)
[2022-02-15] MEDS: INSULIN ASPART (NovoLOG) 100 UNIT/ML VIAL SQ SCH ×2 (08:15→11:53)
[2022-02-15 08:47] VITALS: BP 93/59; PULSE 80; RESP 18; TEMP 98.8
[2022-02-15 08:51] LABS: Basophils # (A) 0.01 X 10*3/uL (0.00-0.10); Basophils % (A) 0.1 %; Eosinophils # (A) 0 X 10*3/uL (0.04-0.35); Eosinophils % (A) 0 %; HCT 34.2 % (39.6-50.0); HGB 11.5 g/dL (13.0-17.0); Immature Grans, Automated 0.4 %; Lymphocytes # (A) 0.67 X 10*3/uL (0.90-5.00); Lymphocytes % (A) 6.4 %; MCH 31.7 pg (27.0-32.0); MCHC 33.6 g/dL (32.0-37.0); MCV 94.2 fL (80.0-97.0); Mean Platelet Volume 10.3 fL (9.5-12.2); Monocytes # (A) 0.77 X 10*3/uL (0.20-1.00); Monocytes % (A) 7.3 %; NRBC Per 100 WBC 0 /100 WBCS (0.0-0.0); Neutrophils # (A) 9.05 X 10*3/uL (1.80-7.70); Neutrophils % (A) 85.8 %; Platelet Count 151 X 10*3/uL (140-440); RBC 3.63 X 10*6/uL (4.40-5.60); RDW 12.8 % (11.5-14.5); WBC 10.54 X 10*3/uL (4.50-10.00)
[2022-02-15] MEDS ORDERED: lisinopriL 5 MG TAB PO SCH (09:00)
[2022-02-15] MEDS ORDERED: METOPROLOL SUCCINATE (ER) 25 MG TAB.ER.24H PO SCH (09:00)
[2022-02-15] MEDS ORDERED: FUROSEMIDE 40 MG TAB PO SCH (09:00)
[2022-02-15 09:59] LABS: African American GFR (CKD) 43 (>60 ml/min/1.73 sqM); Anion Gap 9 mmol/L; Blood Urea Nitrogen 36 mg/dL (9-20); Calcium 8.5 mg/dL (8.4-10.2); Carbon Dioxide 24 mmol/L (22-30); Chloride 101 mmol/L (98-107); Glucose 263 mg/dL (74-99); Non-African American GFR(CKD) 37 (>60 ml/min/1.73 sqM); Potassium 4.3 mmol/L (3.5-5.1); Sodium 134 mmol/L (137-145)
--- NOTE | 2022-02-15 10:26 | P.DS ---
Providers Date of admission: 02/14/2022 Expected date of discharge: 02/15/22 Attending physician: Nayan Chappell Consults: 02/14/22 11:27 Consult Physician Routine Consulting Provider: Perry Nichols Consult Reason/Comments: Medical management Do you want consulting provider notified?: Yes Primary care physician: Perry Nichols Hospital Course: Date of admission: 02/14/2022 Date of discharge: 02/15/2022 Admission diagnosis: Right knee osteoarthritis Discharge diagnosis: Same Attending physician: Dr. Chappell Surgical procedures: Right total knee arthroplasty Brief history: Patient is a 81-year-old male with a history of progressive primary right knee osteoarthritis. At this point patient has failed conservative treatment measures and has opted to proceed with a elective right total knee arthroplasty. Hospital course: Details of patient's surgery can be found in operative report. Patient tolerated the procedure well and was subsequently transported to orthopedic floor. Patient's orthopeidc and medical care was provided daily. Patient had daily laboratory tests performed for evaluation of overall blood counts. Patient had daily physical therapy to include strengthening range of motion as well as education with walker ambulation. Patient was treated with Lovenox for their postoperative DVT prophylaxis during their inpatient stay. Patient was noted to have a relatively uneventful postoperative course. Patient reported satisfactory pain control with oral pain medications by postoperative day 1. Patient showed satisfactory progress with physical therapy. Patient moved steadily through the program and had no difficulty meeting the goals by postoperative day 1. Given patient's otherwise satisfactory course and having met physical therapy goals, plan is to discharge patient home with health services on postoperative day 1. Discharge condition/disposition: Patient will be discharged home with health services in stable condition. Discharge medications: Instructions are given on resumption of patient's normal daily medications per primary care recommendation, in addition patient will be prescribed [place]; Colace; resume Eliquis once home for DVT ppx. Orthopedic Discharge Instructions: 1. Wound care and infection precautions, keep incision dry and covered while showering, no lotions, creams, moisturizers. No soaking, pools, hot tubs. Do not scrub over incision. 2. Weight-bear as tolerated with walker / cane until follow-up. 3. Ice and elevate when necessary. Do not exceed 20 minutes per hour with ice pack. 4. Utilize compression sleeve until seen at first follow up appointment. 5. Pain meds and anticoagulants per prescription. 6. Pain medication has potential to cause constipation. Increase oral fluid and fiber intake. Contact primary care provider if you have not had a bowel movement within 48 hours after discharge. 7. No anti-inflammatory medication until discussed at first post operative visit, this including Motrin, Aleve, Mobic, Diclofenac. 8. Follow up in office at 2 weeks postop with Geovany Sierra PA-C / Aiden Pham PA-C 9. Follow up with your primary care doctor 7-10 days after discharge. 10. Contact [facility] with any questions, . Keep incision clean, dry, intact. While showering, cover dressing with Saran wrap. Silver foam dressing may be removed in 7 days, 02/21/2022 Medications: [place] 5 mg/325 mg 12 every 6 hours; Colace; Eliquis 2.5 mg BID x 2 weeks Assessment: Right knee osteoarthritis Procedures: Right total knee arthroplasty Patient Condition at Discharge: Good Plan - Discharge Summary Discharge Rx Participant: Yes New Discharge Prescriptions: New Docusate [Colace] 100 mg PO DAILY #30 capsule HYDROcodone/APAP 5-325MG [[place] 5-325] 1 - 2 tab PO Q6HR PRN #36 tab PRN Reason: Pain No Action Fenofibrate Nanocrystallized [Tricor] 145 mg PO DAILY Tamsulosin HCl [Flomax] 0.4 mg PO HS Apixaban [Eliquis] 5 mg PO BID Metoprolol Succinate (ER) [Toprol XL] 25 mg PO QAM Furosemide [Lasix] 40 mg PO DAILY #30 tablet Atorvastatin [Lipitor] 40 mg PO HS Gabapentin [Neurontin] 400 mg PO QID Sodium Bicarbonate Tab 650 mg PO HS Multivit-Min/FA/Lycopen/Lutein [Centrum Silver Men Tablet] 1 tab PO HS Quinapril HCl [Accupril] 5 mg PO DAILY Dulaglutide [Trulicity] 3 mg SQ MO Discharge Medication List Fenofibrate Nanocrystallized [Tricor] 145 mg PO DAILY 01/18/18 [History] Tamsulosin HCl [Flomax] 0.4 mg PO HS 01/18/18 [History] Apixaban [Eliquis] 5 mg PO BID 07/31/18 [History] Metoprolol Succinate (ER) [Toprol XL] 25 mg PO QAM 07/30/20 [History] Multivit-Min/FA/Lycopen/Lutein [Centrum Silver Men Tablet] 1 tab PO HS 07/04/21 [History] Sodium Bicarbonate Tab 650 mg PO HS 07/04/21 [History] Furosemide [Lasix] 40 mg PO DAILY #30 tablet 07/06/21 [Rx] Atorvastatin [Lipitor] 40 mg PO HS 07/14/21 [History] Dulaglutide [Trulicity] 3 mg SQ MO 02/11/22 [History] Gabapentin [Neurontin] 400 mg PO QID 02/11/22 [History] Quinapril HCl [Accupril] 5 mg PO DAILY 02/11/22 [History] Docusate [Colace] 100 mg PO DAILY #30 capsule 02/15/22 [Rx] HYDROcodone/APAP 5-325MG [[place] 5-325] 1 - 2 tab PO Q6HR PRN #36 tab 02/15/22 [Rx] Follow up Appointment(s)/Referral(s): [facility] [NON-STAFF] - As Needed (Continuous Passive Motion knee machine) [facility] Nurse, [NON-STAFF] - As Needed Nick Sierra PAC [PHYSICIAN BANDER AND CELLOPHANER MACHINE] - 2 Weeks Patient Instructions/Handouts: Knee Replacement (DC) Activity/Diet/Wound Care/Special Instructions: Orthopedic Discharge Instructions: 1. Wound care and infection precautions, keep incision dry and covered while showering, no lotions, creams, moisturizers. No soaking, pools, hot tubs. Do not scrub over incision. 2. Weight-bear as tolerated with walker / cane until follow-up. 3. Ice and elevate when necessary. Do not exceed 20 minutes per hour with ice pack. 4. Utilize compression sleeve until seen at first follow up appointment. 5. Pain meds and anticoagulants per prescription. 6. Pain medication has potential to cause constipation. Increase oral fluid and fiber intake. Contact primary care provider if you have not had a bowel movement within 48 hours after discharge. 7. No anti-inflammatory medication until discussed at first post operative visit, this including Motrin, Aleve, Mobic, Diclofenac. 8. Follow up in office at 2 weeks postop with Geovany Sierra PA-C / Aiden Pham PA-C 9. Follow up with your primary care doctor 7-10 days after discharge. 10. Contact [facility] with any questions, . Keep incision clean, dry, intact. While showering, cover dressing with Saran wrap. Silver foam dressing may be removed in 7 days, 02/21/2022 Medications: [place] 5 mg/325 mg 12 every 6 hours; Colace; resume Eliquis once home for DVT prophylaxis Discharge Disposition: HOME WITH HOME HEALTH SERVICES
[2022-02-15] MEDS: SODIUM CHLORIDE 0.9% 1,000 ML IV SCH (11:27)
[2022-02-15 11:43] LABS: Glucose,Whole Blood 127 mg/dL (70-110)
--- NOTE | 2022-02-15 11:43 | P.CONS ---
History of Present Illness - Reason for Consult Consult date: 02/15/22 - History of Present Illness This is a 81 year old male patient of Dr Nichols with past medical history significant for atrial fibrillation, CVA, diabetes mellitus, hypertension, status post permanent pacemaker. Patient also has history of chronic kidney disease follows with Dr Molina his baseline creatinine is usually around 1.8. Patient presents for schedule total right knee arthroplasty. Patient is a newly diagnosed diabetic in the last year, his A1C was 8.1 in august of this year. Maintained on trulicity, he does check his blood sugar at home states in runs in the 150s. Patient is anticoagulated with eliquis outpatient for atrial fibrillation, also on lasix daily, quinapril, toprol XL. Blood sugars are in the 200s. Preoperative labs shows a creatinine of 1.8 which will be repeated. Blood pressure is on the lower side post operatively which we will hold blood pressure medications. REVIEW OF SYSTEMS: CONSTITUTIONAL: No fever, no malaise, no fatigue. HEENT: No recent visual problems or hearing problems. Denied any sore throat. CARDIOVASCULAR: No chest pain, orthopnea, PND, no palpitations, no syncope. PULMONARY: No shortness of breath, no cough, no hemoptysis. GASTROINTESTINAL: No diarrhea, no nausea, no vomiting, no abdominal pain. NEUROLOGICAL: No headaches, no weakness, no numbness. HEMATOLOGICAL: Denies any bleeding or petechiae. GENITOURINARY: Denies any burning micturition, frequency, or urgency. MUSCULOSKELETAL/RHEUMATOLOGICAL: Denies any joint pain, swelling, or any muscle pain. ENDOCRINE: Denies any polyuria or polydipsia. The rest of the 14-point review of systems is negative. PHYSICAL EXAMINATION: GENERAL: The patient is alert and oriented x3, not in any acute distress. Well developed, well nourished. HEENT: Pupils are round and equally reacting to light. EOMI. No scleral icterus. No conjunctival pallor. Normocephalic, atraumatic. No pharyngeal erythema. No thyromegaly. CARDIOVASCULAR: S1 and S2 present. No murmurs, rubs, or gallops. PULMONARY: Chest is clear to auscultation, no wheezing or crackles. ABDOMEN: Soft, nontender, nondistended, normoactive bowel sounds. No palpable organomegaly. MUSCULOSKELETAL: No joint swelling or deformity. EXTREMITIES: No cyanosis, clubbing, or pedal edema. Postoperative right knee dressing intact. NEUROLOGICAL: Gross neurological examination did not reveal any focal deficits. SKIN: No rashes. Assessment and Plan Assessment Status post total right knee arthroplasty Atrial fibrillation anticoagulated with eliquis outpatient History hypertension blood pressure currently in the low 100s systolic postoperatively will hold off on antihypertensives Diabetes Mellitus with hyperglycemia most recent A1C documented in August of this year is 8.1 Chronic Kidney Disease patient is maintained on sodium bicarbonate outpatient Neuropathy maintained on gabapentin which is continued Hyperlipidemia History CVA Status post permenent pacemaker Leukocytosis GI Prophylaxis DVT Prophylaxis as per primary currently on lovenox, resume eliquis when cleared by surgery Full Code Plan Resume eliquis when cleared with primary Hold lisinopril to avoid postoperative hypotension, patient instructed to monitor blood pressure at home, can resume when systolic blood pressure above 120. Continue to monitor blood glucose Decrease gabapentin dosing PT/OT Thank you for this consultation Patient is stable for discharge home when cleared by primary. The impression and plan of care has been dictated by Lilli Chen Nurse Practitioner as directed. Dr. Jacqueline MD I have performed a history and physical examination and medical decision making of this patient, discussed the same with the dictator, and agree with the dictators assessment and plan as written, documented as a scribe. Based on total visit time, I have performed more than 50% of this visit. Past Medical History Past Medical History: Atrial Fibrillation, CVA/TIA, Diabetes Mellitus, Hyperlipidemia, Hypertension, Pneumonia, Prostate Disorder, Renal Disease Additional Past Medical History / Comment(s): leaking mitral valve,, cyst on kidney, "small brain aneurysm", TIA 06/2021 ago-no residual effects, "constant diarrhea", "feet always tingling" History of Any Multi-Drug Resistant Organisms: None Reported Past Surgical History: Appendectomy, Cholecystectomy, Heart Catheterization, Orthopedic Surgery, Pacemaker, Tonsillectomy Additional Past Surgical History / Comment(s): torn retina rt eye surgery x 2, massiel cataracts, colonoscopy. left shoulder rotator cuff Past Anesthesia/Blood Transfusion Reactions: Previous Problems w/ Anesthesia Additional Past Anesthesia/Blood Transfusion Reaction / Comm: diff waking up after colonoscopy-took long time Type of Cardiac Device: Permanent Pacemaker Device Placement Date:: 12/2019 Past Psychological History: No Psychological Hx Reported Smoking Status: Never smoker Past Alcohol Use History: None Reported Past Drug Use History: None Reported - Past Family History Daughter(s) Family Medical History: Cancer Brother(s) Family Medical History: Cancer Father Family Medical History: Cancer Medications and Allergies Home Medications Medication Instructions Recorded Confirmed Type Fenofibrate Nanocrystallized 145 mg PO DAILY 01/18/18 02/14/22 History [Tricor] Tamsulosin HCl [Flomax] 0.4 mg PO HS 01/18/18 02/14/22 History Apixaban [Eliquis] 5 mg PO BID 07/31/18 02/14/22 History Metoprolol Succinate (ER) [Toprol 25 mg PO QAM 07/30/20 02/14/22 History XL] Multivit-Min/FA/Lycopen/Lutein 1 tab PO HS 07/04/21 02/14/22 History [Centrum Silver Men Tablet] Sodium Bicarbonate Tab 650 mg PO HS 07/04/21 02/14/22 History Furosemide [Lasix] 40 mg PO DAILY #30 tablet 07/06/21 02/14/22 Rx Atorvastatin [Lipitor] 40 mg PO HS 07/14/21 02/14/22 History Dulaglutide [Trulicity] 3 mg SQ MO 02/11/22 02/14/22 History Gabapentin [Neurontin] 400 mg PO QID 02/11/22 02/14/22 History Quinapril HCl [Accupril] 5 mg PO DAILY 02/11/22 02/14/22 History Docusate [Colace] 100 mg PO DAILY #30 capsule 02/15/22 Rx HYDROcodone/APAP 5-325MG [[place] 1 - 2 tab PO Q6HR PRN #36 tab 02/15/22 Rx 5-325] Allergies Allergy/AdvReac Type Severity Reaction Status Date / Time morphine AdvReac Nausea & Verified 02/14/22 08:33 Vomiting Physical Exam Vitals: Vital Signs Temp Pulse Pulse Resp BP Pulse Ox 02/15/22 08:00 98.8 F 80 18 93/59 95 02/15/22 02:00 97.7 F 69 15 104/60 97 02/14/22 20:07 97.4 F L 61 18 117/72 95 02/14/22 17:30 55 L 16 135/88 100 02/14/22 16:37 54 L 16 131/86 99 02/14/22 16:06 56 L 16 129/85 99 02/14/22 15:35 64 16 130/85 99 02/14/22 15:04 54 L 16 135/83 99 02/14/22 14:34 45 L 16 131/88 99 02/14/22 14:02 59 L 16 132/82 99 02/14/22 13:34 64 16 129/83 99 02/14/22 13:04 50 L 16 127/83 97 02/14/22 12:34 55 L 16 119/87 97 02/14/22 12:19 67 16 116/78 98 02/14/22 12:04 69 16 110/54 96 02/14/22 11:49 97.0 F L 64 16 115/68 97 Intake and Output 02/14/22 02/15/22 02/15/22 22:59 06:59 14:59 Intake Total 550 1210 296 Balance 550 1210 296 Intake: IV 550 Intake, IV Titration 650 Amount Sodium Chloride 0.9% 1, 600 000 ml @ 50 mls/hr IV . Q20H JOSE Rx#:[id number] ceFAZolin 2 gm In Sodium 50 Chloride 0.9% 50 ml @ 100 mls/hr IVPB Q8H JOSE Rx#: [id number] Oral 560 296 Other: Voiding Method Toilet # Voids 1 2 Weight 89.8 kg Results CBC & Chem 7: 02/15/22 05:37 02/15/22 05:37 Labs: Abnormal Lab Results - Last 24 Hours (Table) 02/14/22 02/14/22 02/15/22 Range/Units 19:01 21:45 05:37 WBC 10.54 H (4.50-10.00) X 10*3/uL RBC 3.63 L (4.40-5.60) X 10*6/uL Hgb 11.5 L (13.0-17.0) g/dL Hct 34.2 L (39.6-50.0) % Neutrophils # 9.05 H (1.80-7.70) X 10*3/uL Lymphocytes # 0.67 L (0.90-5.00) X 10*3/uL Eosinophils # 0 L (0.04-0.35) X 10*3/uL POC Glucose (mg/dL) 181 H 218 H (70-110) mg/dL 02/15/22 Range/Units 07:07 WBC (4.50-10.00) X 10*3/uL RBC (4.40-5.60) X 10*6/uL Hgb (13.0-17.0) g/dL Hct (39.6-50.0) % Neutrophils # (1.80-7.70) X 10*3/uL Lymphocytes # (0.90-5.00) X 10*3/uL Eosinophils # (0.04-0.35) X 10*3/uL POC Glucose (mg/dL) 214 H (70-110) mg/dL Assessment and Plan Time with Patient: Less than 30
[2022-02-15] MEDS ORDERED: MULTIVITAMINS, THERA 1 EACH TAB PO SCH (12:00)
--- NOTE | 2022-02-15 12:34 | P.PN ---
Progress Note - Text 02/15/22 615am 81-year-old male status post total knee replacement by Dr. Kahn. Patient has an On-Q pump for postop pain control, patient seen and evaluated, patient has a VAS of 0 with solution running at 8 mL an hour. Dressing clean dry and intact plan to continue On-Q pump infusion
--- NOTE | 2022-02-15 12:46 | P.PN ---
Subjective Progress Note Date: 02/15/22 Principal diagnosis: Right knee osteoarthritis Patient was seen at bedside this morning resting comfortably. Patient says he did well with therapy this morning and was able to walk around the room and up-and-down a couple steps. Patient says he has not had bowel movement yet. However, patient says he has been passing gas. Patient says he has urinated many times since surgery yesterday. Patient currently rates his knee pain as 1/10. Patient says he does have a walker for home. Patient denies chest pain, fever, shortness of breath, nausea, vomiting, change in vision, loss of bowel/bladder control. Objective - Vital Signs Vital signs: Vital Signs Temp 98.8 F 02/15/22 08:00 Pulse 80 02/15/22 08:00 Resp 18 02/15/22 08:00 BP 93/59 02/15/22 08:00 Pulse Ox 95 02/15/22 08:00 FiO2 Intake & Output 02/14/22 02/15/22 02/15/22 18:59 06:59 18:59 Intake Total 1051 1760 296 Output Total 45 Balance 1006 1760 296 Weight 89.8 kg 89.8 kg Intake: IV 1051 550 Intake, IV Titration 650 Amount Sodium Chloride 0.9% 1, 600 000 ml @ 50 mls/hr IV . Q20H JOSE Rx#:[id number] ceFAZolin 2 gm In Sodium 50 Chloride 0.9% 50 ml @ 100 mls/hr IVPB Q8H JOSE Rx#: [id number] Oral 560 296 Output: Estimated Blood Loss 45 Other: Voiding Method Toilet # Voids 2 - Exam Right knee: Incision is clean, dry, and intact. The silver foam dressing is in good condition. There is minimal soft tissue swelling and ecchymosis surrounding the medial and lateral aspects of the incision. Calf is soft, no tenderness with palpation. Plantar flexion, dorsiflexion, EHL, FHL are intact. Sensory exam to light touch throughout the extremity is intact, dorsal pedis pulses 2+. - Labs CBC & Chem 7: 02/15/22 05:37 02/15/22 05:37 Labs: Abnormal Lab Results - Last 24 Hours (Table) 02/14/22 02/14/22 02/15/22 Range/Units 19:01 21:45 05:37 WBC 10.54 H (4.50-10.00) X 10*3/uL RBC 3.63 L (4.40-5.60) X 10*6/uL Hgb 11.5 L (13.0-17.0) g/dL Hct 34.2 L (39.6-50.0) % Neutrophils # 9.05 H (1.80-7.70) X 10*3/uL Lymphocytes # 0.67 L (0.90-5.00) X 10*3/uL Eosinophils # 0 L (0.04-0.35) X 10*3/uL Sodium (137-145) mmol/L BUN (9-20) mg/dL Creatinine (0.66-1.25) mg/dL Glucose (74-99) mg/dL POC Glucose (mg/dL) 181 H 218 H (70-110) mg/dL 02/15/22 02/15/22 Range/Units 05:37 07:07 WBC (4.50-10.00) X 10*3/uL RBC (4.40-5.60) X 10*6/uL Hgb (13.0-17.0) g/dL Hct (39.6-50.0) % Neutrophils # (1.80-7.70) X 10*3/uL Lymphocytes # (0.90-5.00) X 10*3/uL Eosinophils # (0.04-0.35) X 10*3/uL Sodium 134 L (137-145) mmol/L BUN 36 H (9-20) mg/dL Creatinine 1.73 H (0.66-1.25) mg/dL Glucose 263 H (74-99) mg/dL POC Glucose (mg/dL) 214 H (70-110) mg/dL Assessment and Plan Assessment: 1. Right knee osteoarthritis Postoperative day #1 status post right total knee arthroplasty Plan: 1. Right knee osteoarthritis - right total knee arthroplasty performed yesterday, 02/14/2022. Patient stable at bedside this morning. Patient has walker at home. Discharge home today with health services. 2. Appreciate medical management 3. Pain management - [place] 4. DVT prophylaxis - resume Eliquis once home 5. GI prophylaxis - Colace once home 6. PT/OT - weightbearing as tolerated with walker 7. Encourage incentive spirometer use 8. Discharge planning - home today with health services Time with Patient: Less than 30
--- NOTE | 2022-02-15 13:11 | P.EN ---
Patient will require a nebulizer on discharged to continue with albuterol nebulized treatments every 6 hours to manage his COPD
--- NOTE | 2022-02-15 15:32 | US ---
EXAMINATION TYPE: US venous doppler duplex LE RT DATE OF EXAM: 02/15/2022 3:22 PM COMPARISON: NONE CLINICAL HISTORY: right calf pain. Right calf pain. Hx right knee replacement yesterday. SIDE PERFORMED: Right TECHNIQUE: The right lower extremity deep venous system is examined utilizing real time linear array sonography with graded compression, doppler sonography and color-flow sonography. VESSELS IMAGED: Common Femoral Vein Deep Femoral Vein Greater Saphenous Vein * Femoral Vein Popliteal Vein Small Saphenous Vein * Proximal Calf Veins (* superficial vessels) Right Leg: No evidence of DVT in veins imaged at this time. There is compressibility and color flow involving the visualized images of the right lower extremity. IMPRESSION: No deep venous thrombosis of the right lower extremity.
== END 2022-02-15 15:50 | disposition home health service (06) ==
LOC: OR 08:09 → 4SSUR 11:21 → OR 02-15 15:50
PROVIDERS: ATTEND Orthopaedic Surgery
DX: M17.11 Unilateral primary osteoarthritis, right knee (principal); G89.18 Other acute postprocedural pain; I25.10 Atherosclerotic heart disease of native coronary artery without angina pectoris; I10 Essential (primary) hypertension; E78.5 Hyperlipidemia, unspecified; I48.91 Unspecified atrial fibrillation; Z79.01 Long term (current) use of anticoagulants; Z79.02 Long term (current) use of antithrombotics/antiplatelets; Z79.899 Other long term (current) drug therapy; Z79.891 Long term (current) use of opiate analgesic; Z29.9 Encounter for prophylactic measures, unspecified
CPT/HCPCS: 27447; 97161; 64999; 64448; 76942; 80048; 85025; 88300; 73560; 93971; C1776; C1713 ×2; J2250; J1100; J0690 ×3; J2405; J3010; J1650; J1170; J2795

== ENCOUNTER 2022-02-24 12:41 | Observation (INO) | payer MEDICARE ==
[2022-02-24] MEDS ORDERED: SODIUM CHLORIDE 0.9% 1,000 ML IV STA (12:53)
--- NOTE | 2022-02-24 12:55 | ED ---
General Adult HPI - General Stated complaint: Near syncope Time Seen by Provider: 02/24/22 12:41 Source: patient, RN notes reviewed, old records reviewed - History of Present Illness Initial comments: This is an 81-year-old male who presents emergency Department after having had a near syncopal episode. Patient just had knee surgery on the right knee a week ago but Dr. Chappell. Patient went to the office today for recheck and when he was there he had abdominal problems he went to the bathroom he had quite a bit of diarrhea he states. Patient then went and saw the doctor while he was sitting there became lightheaded and denies almost passing out but they say that he became less responsive though he was never actually unconscious. Patient denied any chest pain or palpitations. Patient denies shortness of breath or difficulty breathing. Patient denies any recent fever chills or cough per patient states he is on eliquis. Patient states currently he feels much better. EMS stated his blood pressure initially was normal with a did get one low systolic blood pressure of 90. - Related Data Home Medications Medication Instructions Recorded Confirmed Fenofibrate Nanocrystallized 145 mg PO DAILY 01/18/18 02/24/22 [Tricor] Tamsulosin HCl [Flomax] 0.4 mg PO HS 01/18/18 02/24/22 Apixaban [Eliquis] 5 mg PO BID 07/31/18 02/24/22 Metoprolol Succinate (ER) [Toprol 25 mg PO QAM 07/30/20 02/24/22 XL] Multivit-Min/FA/Lycopen/Lutein 1 tab PO HS 07/04/21 02/24/22 [Centrum Silver Men Tablet] Sodium Bicarbonate Tab 650 mg PO HS 07/04/21 02/24/22 Atorvastatin [Lipitor] 40 mg PO HS 07/14/21 02/24/22 Dulaglutide [Trulicity] 3 mg SQ MO 02/11/22 02/24/22 Previous Rx's Medication Instructions Recorded Furosemide [Lasix] 40 mg PO DAILY #30 tablet 07/06/21 Docusate [Colace] 100 mg PO DAILY #30 capsule 02/15/22 Gabapentin [Neurontin] 200 mg PO TID #0 02/15/22 HYDROcodone/APAP 5-325MG [[place] 1 - 2 tab PO Q6HR PRN #36 tab 02/15/22 5325] Allergies Allergy/AdvReac Type Severity Reaction Status Date / Time morphine AdvReac Nausea & Verified 02/24/22 13:48 Vomiting Review of Systems ROS Statement: Those systems with pertinent positive or pertinent negative responses have been documented in the HPI. ROS Other: All systems not noted in ROS Statement are negative. Past Medical History Past Medical History: Atrial Fibrillation, CVA/TIA, Diabetes Mellitus, Hyperlip idemia, Hypertension, Pneumonia, Prostate Disorder, Renal Disease Additional Past Medical History / Comment(s): leaking mitral valve,, cyst on kidney, "small brain aneurysm", TIA 06/2021 ago-no residual effects, "constant diarrhea", "feet always tingling" History of Any Multi-Drug Resistant Organisms: None Reported Past Surgical History: Appendectomy, Cholecystectomy, Heart Catheterization, Orthopedic Surgery, Pacemaker, Tonsillectomy Additional Past Surgical History / Comment(s): torn retina rt eye surgery x 2, massiel cataracts, colonoscopy. left shoulder rotator cuff Past Anesthesia/Blood Transfusion Reactions: Previous Problems w/ Anesthesia Additional Past Anesthesia/Blood Transfusion Reaction / Comment(s): diff waking up after colonoscopy-took long time Type of Cardiac Device: Permanent Pacemaker Device Placement Date:: 12/2019 Past Psychological History: No Psychological Hx Reported Smoking Status: Never smoker Past Alcohol Use History: None Reported Past Drug Use History: None Reported - Past Family History Daughter(s) Family Medical History: Cancer Brother(s) Family Medical History: Cancer Father Family Medical History: Cancer General Exam - General Exam Comments Initial Comments: GENERAL: Patient is well-developed and well-nourished. Patient is nontoxic and well- hydrated and is in mild distress. ENT: Neck is soft and supple. No significant lymphadenopathy is noted. Oropharynx is clear. Moist mucous membranes. Neck has full range of motion without eliciting any pain. EYES: The sclera were anicteric and conjunctiva were pink and moist. Extraocular movements were intact and pupils were equal round and reactive to light. Eyelids were unremarkable. PULMONARY: Unlabored respirations. Good breath sounds bilaterally. No audible rales rhonchi or wheezing was noted. CARDIOVASCULAR: There is a regular rate and rhythm without any murmurs gallops or rubs. ABDOMEN: Soft and nontender with normal bowel sounds. SKIN: Skin is clear with no lesions or rashes and otherwise unremarkable. NEUROLOGIC: Patient is alert and oriented x3. Cranial nerves II through XII are grossly intact. Motor and sensory are also intact. Normal speech, volume and content. Symmetrical smile. MUSCULOSKELETAL: Normal extremities with adequate strength and full range of motion. LYMPHATICS: No significant lymphadenopathy is noted PSYCHIATRIC: Normal psychiatric evaluation. Course Vital Signs 02/24/22 02/24/22 02/24/22 12:52 13:47 13:48 Temperature 97.6 F Pulse Rate 62 Pulse Rate [ 63 72 [place] ] Respiratory 18 18 18 Rate Blood Pressure 107/83 Blood Pressure 106/63 88/65 [Left Arm] O2 Sat by Pulse Oximetry 02/24/22 02/24/22 13:53 14:02 Temperature Pulse Rate 62 Pulse Rate [ 67 [place] ] Respiratory 18 18 Rate Blood Pressure 121/64 Blood Pressure 101/52 [Left Arm] O2 Sat by Pulse 96 Oximetry Medical Decision Making - Medical Decision Making EKG shows a paced rhythm at 67 bpm QRS 180 QT interval 476 QTC is 492. Patient's EKG shows no acute abnormalities. Patient's chest x-ray shows no acute abnormality. The patient still does not feel back to his baseline and felt a little lightheaded on occasion. I spoke with the [facility] hospitalist agreed to admit the patient admitted the patient wrote admitting orders. - Lab Data Result diagrams: 02/24/22 12:56 02/24/22 12:56 Lab Results 02/24/22 02/24/22 02/24/22 Range/Units 12:56 12:56 12:56 WBC 7.9 (3.8-10.6) k/uL RBC 4.13 L (4.30-5.90) m/uL Hgb 12.7 L (13.0-17.5) gm/dL Hct 39.4 (39.0-53.0) % MCV 95.6 (80.0-100.0) fL MCH 30.9 (25.0-35.0) pg MCHC 32.3 (31.0-37.0) g/dL RDW 12.5 (11.5-15.5) % Plt Count 299 (150-450) k/uL MPV 7.6 Neutrophils % 76 % Lymphocytes % 14 % Monocytes % 6 % Eosinophils % 2 % Basophils % 0 % Neutrophils # 6.0 (1.3-7.7) k/uL Lymphocytes # 1.1 (1.0-4.8) k/uL Monocytes # 0.5 (0-1.0) k/uL Eosinophils # 0.1 (0-0.7) k/uL Basophils # 0.0 (0-0.2) k/uL PT 12.1 H (9.0-12.0) sec INR 1.1 (<1.2) APTT 30.1 H (22.0-30.0) sec Sodium 134 L (137-145) mmol/L Potassium 4.6 (3.5-5.1) mmol/L Chloride 99 (98-107) mmol/L Carbon Dioxide 21 L (22-30) mmol/L Anion Gap 14 mmol/L BUN 42 H (9-20) mg/dL Creatinine 1.95 H (0.66-1.25) mg/dL Est GFR (CKD-EPI)AfAm 37 (>60 ml/min/1.73 sqM) Est GFR (CKD-EPI)NonAf 32 (>60 ml/min/1.73 sqM) Glucose 282 H (74-99) mg/dL Calcium 9.6 (8.4-10.2) mg/dL Magnesium 2.2 (1.6-2.3) mg/dL Total Bilirubin 1.1 (0.2-1.3) mg/dL AST 27 (17-59) U/L ALT 22 (4-49) U/L Alkaline Phosphatase 46 (38-126) U/L Troponin I (0.000-0.034) ng/mL Total Protein 7.1 (6.3-8.2) g/dL Albumin 4.1 (3.5-5.0) g/dL 02/24/22 Range/Units 12:56 WBC (3.8-10.6) k/uL RBC (4.30-5.90) m/uL Hgb (13.0-17.5) gm/dL Hct (39.0-53.0) % MCV (80.0-100.0) fL MCH (25.0-35.0) pg MCHC (31.0-37.0) g/dL RDW (11.5-15.5) % Plt Count (150-450) k/uL MPV Neutrophils % % Lymphocytes % % Monocytes % % Eosinophils % % Basophils % % Neutrophils # (1.3-7.7) k/uL Lymphocytes # (1.0-4.8) k/uL Monocytes # (0-1.0) k/uL Eosinophils # (0-0.7) k/uL Basophils # (0-0.2) k/uL PT (9.0-12.0) sec INR (<1.2) APTT (22.0-30.0) sec Sodium (137-145) mmol/L Potassium (3.5-5.1) mmol/L Chloride (98-107) mmol/L Carbon Dioxide (22-30) mmol/L Anion Gap mmol/L BUN (9-20) mg/dL Creatinine (0.66-1.25) mg/dL Est GFR (CKD-EPI)AfAm (>60 ml/min/1.73 sqM) Est GFR (CKD-EPI)NonAf (>60 ml/min/1.73 sqM) Glucose (74-99) mg/dL Calcium (8.4-10.2) mg/dL Magnesium (1.6-2.3) mg/dL Total Bilirubin (0.2-1.3) mg/dL AST (17-59) U/L ALT (4-49) U/L Alkaline Phosphatase (38-126) U/L Troponin I <0.012 (0.000-0.034) ng/mL Total Protein (6.3-8.2) g/dL Albumin (3.5-5.0) g/dL Disposition Clinical Impression: Near syncope Disposition: ADMITTED IP TO THIS HOSP Referrals: Perry Nichols MD [Primary Care Provider] - 1-2 days Time of Disposition: 14:47
[2022-02-24 13:13] LABS: Basophils % (A) 0 %; Eosinophils # (A) 0.1 k/uL (0-0.7); Eosinophils % (A) 2 %; HCT 39.4 % (39.0-53.0); HGB 12.7 gm/dL (13.0-17.5); Lymphocytes # (A) 1.1 k/uL (1.0-4.8); Lymphocytes % (A) 14 %; MCH 30.9 pg (25.0-35.0); MCHC 32.3 g/dL (31.0-37.0); MCV 95.6 fL (80.0-100.0); Mean Platelet Volume 7.6; Monocytes # (A) 0.5 k/uL (0-1.0); Monocytes % (A) 6 %; Neutrophils % (A) 76 %; Platelet Count 299 k/uL (150-450); RBC 4.13 m/uL (4.30-5.90); RDW 12.5 % (11.5-15.5); WBC 7.9 k/uL (3.8-10.6)
[2022-02-24 13:24] LABS: Albumin 4.1 g/dL (3.5-5.0); Calcium 9.6 mg/dL (8.4-10.2); INR 1.1 (<1.2); Magnesium 2.2 mg/dL (1.6-2.3); Partial Thromboplastin Time 30.1 sec (22.0-30.0); Potassium 4.6 mmol/L (3.5-5.1); Prothrombin Time 12.1 sec (9.0-12.0); Total Bilirubin 1.1 mg/dL (0.2-1.3); Total Protein 7.1 g/dL (6.3-8.2)
--- NOTE | 2022-02-24 14:37 | XR ---
EXAMINATION TYPE: XR chest 2V DATE OF EXAM: 02/24/2022 COMPARISON: Chest x-ray July 04, 2021 HISTORY: Chest pain. TECHNIQUE: Frontal and lateral views of the chest are obtained. FINDINGS: There is no suspicious new focal air space opacity, pleural effusion, or pneumothorax seen . Persistent cardiomegaly with single lead pacemaker. Multilevel spurring in thoracic spine redemonst rated. IMPRESSION: Cardiomegaly without acute pulmonary process. No significant change from prior study.
[2022-02-24] MEDS ORDERED: NITROGLYCERIN SL TABS 0.4 MG TAB SUBLINGUAL PRN (14:48)
[2022-02-24] MEDS ORDERED: DEXTROSE 50% SYRINGE 50 ML IVP PRN ×2 (15:56)
[2022-02-24 16:09] LABS: Glucose,Whole Blood 195 mg/dL (70-110)
[2022-02-24] MEDS: GABAPENTIN 100 MG CAP PO SCH ×2 (16:28→20:24)
[2022-02-24] MEDS: INSULIN ASPART (NovoLOG) 100 UNIT/ML VIAL SQ SCH ×2 (16:30→20:24)
[2022-02-24 20:18] LABS: Glucose,Whole Blood 319 mg/dL (70-110)
[2022-02-24] MEDS: APIXABAN 5 MG TAB PO SCH (20:24)
[2022-02-24] MEDS ORDERED: ATORVASTATIN 40 MG TAB PO SCH (21:00)
[2022-02-24] MEDS ORDERED: TAMSULOSIN 0.4 MG CAP.ER.24H PO SCH (21:00)
--- NOTE | 2022-02-24 21:06 | US ---
EXAMINATION TYPE: US venous doppler duplex LE RT DATE OF EXAM: 02/24/2022 6:00 PM COMPARISON: NONE CLINICAL HISTORY: swelling. right knee replacement 02/14/22, right leg edema. patient on blood thinner , AFIB SIDE PERFORMED: Right TECHNIQUE: The lower extremity deep venous system is examined utilizing real time linear array sonog nissa with graded compression, doppler sonography and color-flow sonography. VESSELS IMAGED: Common Femoral Vein Deep Femoral Vein Greater Saphenous Vein * Femoral Vein Popliteal Vein Small Saphenous Vein * Proximal Calf Veins (* superficial vessels) Right Leg: no evidence of DVT as visualized IMPRESSION: 1. Right lower extremity ultrasound negative for deep venous thrombosis
--- NOTE | 2022-02-25 01:00 | P.HPIM ---
History of Present Illness H&P Date: 02/24/22 Chief Complaint: Dizziness Patient is a 81-year-old male with a known history of atrial fibrillation on anticoagulation clinic this, hypertension, hyperlipidemia, diabetes type 2, history of brain aneurysm and prior history of TIAs, history of permanent pacemaker placement and recent right total knee arthroplasty on 02/14/2022 was sent from PCPs office due to complaints of near syncopal episode. Patient went to Dr. Nichols's office for checkup today while he was waiting at the office he went to the bathroom to urinate and when he came back he felt very hot. He did use bathroom again and had 1 episode of diarrhea. He felt dizzy and lightheaded. Patient's blood pressure noted to be low and had some neck discomfort. Patient was sent to ER for evaluation. Otherwise denied any complaints of chest pain. Patient did have mild shortness of breath. No complaints of nausea vomiting. Patient felt lightheaded and almost passed out. No fever no chills. No cough or sputum production. Denied any dysuria or hematuria. Patient says that he also having right lower extremity swelling since surgery. No complaints of calf tenderness or pain. On admission chest x-ray showed cardiomegaly without acute pulmonary process. No significant change from prior study. EKG showed electronic ventricular pacer rhythm. Laboratory data WBC 7.9 hemoglobin 12.7 and platelets 299, INR 1.1, sodium 134, potassium 4.6, chloride 99, BUN 42 and creatinine 1.95 and blood sugar is 282 Troponin 2 negative Code 90 PCR not detected. Liver is not elevated. Review of Systems Constitutional: Patient denies any fever or chills . Generalized weakness.. Abdomen: Patient denied nausea vomiting . Patient does have were observed diarrhea and no abdominal pain. Cardiovascular: Patient denies any chest pain or short of breath no palpitati ons. Respiratory: patient denied any cough is from production. No shortness of breath Neurologic: Patient denied any numbness or tingling headache. Dizzy and lightheaded. Musculoskeletal: Patient denies any complaints of joint swelling or deformity. Skin: Negative Psychiatric: Negative Endocrine: No heat or cold intolerance. No recent weight gain. Genitourinary: No dysuria or hematuria. All other 14 point ROS negative except the above Past Medical History Past Medical History: Atrial Fibrillation, CVA/TIA, Diabetes Mellitus, Hyperlipidemia, Hypertension, Pneumonia, Prostate Disorder, Renal Disease Additional Past Medical History / Comment(s): leaking mitral valve,, cyst on kidney, "small brain aneurysm", TIA 06/2021 ago-no residual effects, "constant diarrhea", "feet always tingling" History of Any Multi-Drug Resistant Organisms: None Reported Past Surgical History: Appendectomy, Cholecystectomy, Heart Catheterization, Orthopedic Surgery, Pacemaker, Tonsillectomy Additional Past Surgical History / Comment(s): torn retina rt eye surgery x 2, massiel cataracts, colonoscopy. left shoulder rotator cuff Past Anesthesia/Blood Transfusion Reactions: Previous Problems w/ Anesthesia Additional Past Anesthesia/Blood Transfusion Reaction / Comment(s): diff waking up after colonoscopy-took long time Type of Cardiac Device: Permanent Pacemaker Device Placement Date:: 12/2019 Past Psychological History: No Psychological Hx Reported Smoking Status: Never smoker Past Alcohol Use History: None Reported Past Drug Use History: None Reported - Past Family History Daughter(s) Family Medical History: Cancer Brother(s) Family Medical History: Cancer Father Family Medical History: Cancer Medications and Allergies Home Medications Medication Instructions Recorded Confirmed Type Fenofibrate Nanocrystallized 145 mg PO DAILY 01/18/18 02/24/22 History [Tricor] Tamsulosin HCl [Flomax] 0.4 mg PO HS 01/18/18 02/24/22 History Apixaban [Eliquis] 5 mg PO BID 07/31/18 02/24/22 History Metoprolol Succinate (ER) [Toprol 25 mg PO QAM 07/30/20 02/24/22 History XL] Multivit-Min/FA/Lycopen/Lutein 1 tab PO HS 07/04/21 02/24/22 History [Centrum Silver Men Tablet] Sodium Bicarbonate Tab 650 mg PO HS 07/04/21 02/24/22 History Furosemide [Lasix] 40 mg PO DAILY #30 tablet 07/06/21 02/24/22 Rx Atorvastatin [Lipitor] 40 mg PO HS 07/14/21 02/24/22 History Dulaglutide [Trulicity] 3 mg SQ MO 02/11/22 02/24/22 History Docusate [Colace] 100 mg PO DAILY #30 capsule 02/15/22 02/24/22 Rx Gabapentin [Neurontin] 200 mg PO TID #0 02/15/22 02/24/22 Rx HYDROcodone/APAP 5-325MG [[place] 1 - 2 tab PO Q6HR PRN #36 tab 02/15/22 02/24/22 Rx 5-325] Allergies Allergy/AdvReac Type Severity Reaction Status Date / Time morphine AdvReac Nausea & Verified 02/24/22 13:48 Vomiting Physical Exam Vitals: Vital Signs Temp Pulse Pulse Resp BP BP Pulse Ox 02/24/22 15:30 59 L 17 120/72 97 02/24/22 15:00 63 21 124/70 98 02/24/22 14:30 62 20 115/74 98 02/24/22 14:02 62 18 121/64 96 02/24/22 13:53 67 18 101/52 02/24/22 13:48 72 18 88/65 02/24/22 13:47 63 18 106/63 02/24/22 13:30 63 18 109/66 99 02/24/22 13:00 70 17 98/87 98 02/24/22 12:52 97.6 F 62 18 107/83 Intake and Output 02/24/22 02/24/22 02/24/22 06:59 14:59 22:59 Other: Weight 87.271 kg PHYSICAL EXAMINATION: Patient is lying in the bed comfortably, no acute distress, awake alert and oriented.. HEENT: Normocephalic. Neck is supple. Pupils reactive. Nostrils clear. Oral cavity is moist. Neck reveals no JVD, carotid bruits, or thyromegaly. CHEST EXAMINATION: Trachea is central. Symmetrical expansion. Lung sahu clear to auscultation and percussion. CARDIAC: Normal S1, S2 with no gallops. No murmurs , irregularly irregular rhythm. ABDOMEN: Soft. Bowel sounds normal. No organomegaly. No abdominal bruits. Extremities: reveal no edema. Right lower extremity swelling. No calf Tenderness. No clubbing or cyanosis Neurologically awake, alert, oriented x3 with well-coordinated movements. No focal deficits noted Skin: No rash or skin lesions. Psychiatric: Coperative. Nonsuicidal Musculoskeletal: No joint swelling or deformity. Normal range of motion. Results CBC & Chem 7: 02/25/22 04:36 02/25/22 04:36 Labs: Abnormal Lab Results - Last 24 Hours (Table) 02/24/22 02/24/2202/24/22 Range/Units 12:56 12:56 12:56 RBC 4.13 L (4.30-5.90) m/uL Hgb 12.7 L (13.0-17.5) gm/dL PT 12.1 H (9.0-12.0) sec APTT 30.1 H (22.0-30.0) sec Sodium 134 L (137-145) mmol/L Carbon Dioxide 21 L (22-30) mmol/L BUN 42 H (9-20) mg/dL Creatinine 1.95 H (0.66-1.25) mg/dL Glucose 282 H (74-99) mg/dL Thrombosis Risk Factor Assmnt - DVT/VTE Prophylaxis DVT/VTE Prophylaxis: Pharmacologic Prophylaxis ordered Assessment and Plan Assessment: Near syncopal episode likely due to vasovagal and possible orthostatic hypotension. Recent right total knee arthroplasty on 01/18/1922 with some increased right lower extremity swelling compared to left.. Acute kidney injury likely prerenal Hypovolemic hyponatremia Hyperglycemia with uncontrolled diabetes type 2 A1c 8.1 Chronic atrial fibrillation on anticoagulation with eliquis and history of pacemaker placement. Hypertension Hyperlipidemia Diabetes type 2 History of small brain aneurysm and history of TIA in June 2021 DVT prophylaxis patient is already on full anticoagulation Plan: Patient be continued on telemetry monitoring. Was given IV fluid bolus in the ER and blood pressure did improve. Serial EKGs and troponins 3. Orthostatic vitals ordered. Right lower admitted duplex scan ordered to rule out DVT. Continue with insulin sliding scale for better blood sugar control and continue with home medications and her blood pressure medications. Cardiology consult for evaluation. Continue with anticoagulation with eliquis and follow up closely. Time with Patient: Greater than 30
[2022-02-25] MEDS ORDERED: INSULIN DETEMIR (LEVEMIR) 100 UNIT/ML SYR SQ SCH (01:01)
[2022-02-25 01:28] LABS: Glucose,Whole Blood 105 mg/dL (70-110)
[2022-02-25 07:46] LABS: Glucose,Whole Blood 147 mg/dL (70-110)
[2022-02-25] MEDS: APIXABAN 5 MG TAB PO SCH (08:58)
[2022-02-25] MEDS: GABAPENTIN 100 MG CAP PO SCH ×2 (08:58→17:04)
[2022-02-25] MEDS: INSULIN ASPART (NovoLOG) 100 UNIT/ML VIAL SQ SCH ×3 (08:59→18:15)
[2022-02-25] MEDS ORDERED: ASPIRIN 325 MG TAB PO SCH (09:00)
[2022-02-25] MEDS ORDERED: METOPROLOL SUCCINATE (ER) 25 MG TAB.ER.24H PO SCH (09:00)
[2022-02-25 09:01] LABS: Basophils # (A) 0.05 X 10*3/uL (0.00-0.10); Basophils % (A) 0.6 %; Eosinophils % (A) 2.3 %; HCT 35.9 % (39.6-50.0); HGB 11.9 g/dL (13.0-17.0); Immature Grans, Automated 0.5 %; Lymphocytes # (A) 1.69 X 10*3/uL (0.90-5.00); Lymphocytes % (A) 19.7 %; MCH 31.3 pg (27.0-32.0); MCHC 33.1 g/dL (32.0-37.0); MCV 94.5 fL (80.0-97.0); Mean Platelet Volume 9.6 fL (9.5-12.2); Monocytes # (A) 0.71 X 10*3/uL (0.20-1.00); Monocytes % (A) 8.3 %; NRBC Per 100 WBC 0 /100 WBCS (0.0-0.0); Neutrophils # (A) 5.89 X 10*3/uL (1.80-7.70); Neutrophils % (A) 68.6 %; Platelet Count 273 X 10*3/uL (140-440); RDW 12.6 % (11.5-14.5); WBC 8.58 X 10*3/uL (4.50-10.00)
[2022-02-25 09:24] LABS: African American GFR (CKD) 40.6 (60.0-200.0); BUN/Creat Ratio 19.83 Ratio (12.00-20.00); Blood Urea Nitrogen 35.7 mg/dL (9.0-27.0); Calcium 9.3 mg/dL (8.7-10.3); Carbon Dioxide 25.6 mmol/L (20.0-27.5); Chloride 102 mmol/L (96-109); Chol/HDL Ratio 3.19 Ratio; Glucose 149 mg/dL (70-110); LDL Cholesterol,Calculated 47.8 mg/dL (0.0-131.0); Potassium 4.4 mmol/L (3.5-5.5); Sodium 138 mmol/L (135-145)
[2022-02-25 09:46] VITALS: RESP 18
--- NOTE | 2022-02-25 11:03 | P.CRDCN ---
History of Present Illness History of present illness: HISTORY OF PRESENTING ILLNESS This is a pleasant 81 year-old male past medical history significant for recent right total knee arthroplasty on 02/14/2022, nonischemic cardiomyopathy, mitral regurgitation, sick sinus syndrome status post permanent pacemaker 05/2019, paroxysmal atrial fibrillation on Eliquis, dyslipidemia, chronic kidney disease. He follows in the office with Dr. Arriaza. We have been asked to see in consultation for near syncope. Patient states that he was at his follow-up orthopedics appointment after his knee replacement. He states that he walked to the bathroom, had an episode of diarrhea. While he was walking back to the exam room, he had an episode of lightheadedness, felt as if he may pass out. The staff had him lay down and he was told he was no really responding but he could hear them talking. He did not lose consciousness. He denied any chest pain, sophie rtness of breath, nausea, vomiting, palpitations. After his knee replacement he states he's been doing well. He does state that he's been having diarrhea recently. He denies any fever or chills. Yesterday he said he did eat half a donut and coffee prior to the episode. He was given IV fluids on admission and his orthostatic vitals signs were positive. He states he is feeling much better this morning, no further episodes. Orthostatics are now negative this morning. DIAGNOSTICS * EKG reveals ventricular paced rhythm, heart rate 67 * Telemetry tracings indicate ventricular paced rhythm heart rate in the 60s to 70s, 1 episode of 4 beat Run of NSVT. * CHASITY 07/2021 revealed EF of 4045 %, moderate mitral regurgitation, no intracardiac thrombus, no evidence of [id number] shunt * Ultrasound Doppler of the right lower extremity no evidence of DVT * Chest xray cardiomegaly without acute pulmonary process. * Laboratory reviewed, troponin negative 3, WBC 7.9 coming 1-0.7, platelet 299 Zach sodium 138, potassium 4.4, BUN 35, serum creatinine 1.8, d-dimer 2.9 * Current home cardiac medications include metoprolol succinate 25 mg daily, Lasix 40 mg daily, atorvastatin 40 mg nightly, Eliquis 5 mg twice a day. * Cardiac catheterization 07/2020 revealed normal coronary arteries REVIEW OF SYSTEMS At the time of my exam patent's symptoms of lightheadedness, dizziness, presyncope have resolved CONSTITUTIONAL: Denies fever or chills. CARDIOVASCULAR: Denies chest pain, shortness of breath, orthopnea, PND or palpitations. RESPIRATORY: Denies cough. GASTROINTESTINAL: Denies abdominal pain, diarrhea, constipation, nausea or vomiting. MUSCULOSKELETAL: Denies myalgias. NEUROLOGIC: Denies numbness, tingling, headacbe or weakness. ENDOCRINE: Denies fatigue, weight change, polydipsia or polyurina. GENITOURINARY: Denies burning, hematuria or urgency with micturation. HEMATOLOGIC: Denies history of anemia or bleeding. PHYSICAL EXAMINATION lying Blood pressure 125/67, heart rate 92, afebrile, saturations 97% on room air Sitting blood pressure 112/72, heart rate 73 Standing blood pressure 114/71, heart rate 58 CONSTITUTIONAL: No apparent distress. HEENT: Head is normocephalic. Pupils are equal, round. Sclerae anicteric. Mucous membranes of the mouth are moist. No JVD. No carotid bruit. CHEST EXAMINATION: Lungs are clear to auscultation. No chest wall tenderness is noted on palpation or with deep breathing. HEART EXAMINATION: Regular rate and rhythm. S1, S2 heard. Systolic murmur at apex. ABDOMEN: Soft, nontender. Positive bowel sounds. EXTREMITIES: 2+ peripheral pulses, no lower extremity edema and no calf tenderness. SKIN: Right knee with well approximated incision NEUROLOGIC EXAMINATION: Patient is awake, alert and oriented x3. ASSESSMENT Presyncopal episode, possibly vasovagal Diarrhea Elevated D-dimer, rule out PE Orthostatic hypotension, improved Recent right total knee arthroplasty on 02/14/2022 Nonischemic cardiomyopathy Moderate mitral regurgitation Sick sinus syndrome status post permanent pacemaker 05/2019 Paroxysmal atrial fibrillation on Eliquis Dyslipidemia Chronic kidney disease PLAN Obtained d-dimer, elevated at 2.9, recommend VQ scan to evaluate for pulmonary embolism, unable to complete CTA secondary to kidney function Orthostatics this morning negative Continue home Eliquis, statin, metoprolol succinate. Rest of management per primary Further recommendations based on above findings Addendum: VQ scan revealed low probability for pulmonary embolism. Patient is stable from a willow analyst perspective Follow up with Dr. Arriaza in 1-2 weeks. Nurse practitioner note has been reviewed by physician. Signing provider agrees with the documented findings, assessment, and plan of care. Past Medical History Past Medical History: Atrial Fibrillation, CVA/TIA, Diabetes Mellitus, Hyperlipidemia, Hypertension, Pneumonia, Prostate Disorder, Renal Disease Additional Past Medical History / Comment(s): leaking mitral valve,, cyst on kidney, "small brain aneurysm", TIA 06/2021 ago-no residual effects, "constant diarrhea", "feet always tingling" History of Any Multi-Drug Resistant Organisms: None Reported Past Surgical History: Appendectomy, Cholecystectomy, Heart Catheterization, Orthopedic Surgery, Pacemaker, Tonsillectomy Additional Past Surgical History / Comment(s): torn retina rt eye surgery x 2, massiel cataracts, colonoscopy. left shoulder rotator cuff Past Anesthesia/Blood Transfusion Reactions: Previous Problems w/ Anesthesia Additional Past Anesthesia/Blood Transfusion Reaction / Comment(s): diff waking up after colonoscopy-took long time Type of Cardiac Device: Permanent Pacemaker Device Placement Date:: 12/2019 Past Psychological History: No Psychological Hx Reported Smoking Status: Never smoker Past Alcohol Use History: None Reported Past Drug Use History: None Reported - Past Family History Daughter(s) Family Medical History: Cancer Brother(s) Family Medical History: Cancer Father Family Medical History: Cancer Medications and Allergies Home Medications Medication Instructions Recorded Confirmed Type Fenofibrate Nanocrystallized 145 mg PO DAILY 01/18/18 02/24/22 History [Tricor] Tamsulosin HCl [Flomax] 0.4 mg PO HS 01/18/18 02/24/22 History Apixaban [Eliquis] 5 mg PO BID 07/31/18 02/24/22 History Metoprolol Succinate (ER) [Toprol 25 mg PO QAM 07/30/20 02/24/22 History XL] Multivit-Min/FA/Lycopen/Lutein 1 tab PO HS 07/04/21 02/24/22 History [Centrum Silver Men Tablet] Sodium Bicarbonate Tab 650 mg PO HS 07/04/21 02/24/22 History Furosemide [Lasix] 40 mg PO DAILY #30 tablet 07/06/21 02/24/22 Rx Atorvastatin [Lipitor] 40 mg PO HS 07/14/21 02/24/22 History Dulaglutide [Trulicity] 3 mg SQ MO 02/11/22 02/24/22 History Docusate [Colace] 100 mg PO DAILY #30 capsule 02/15/22 02/24/22 Rx Gabapentin [Neurontin] 200 mg PO TID #0 02/15/22 02/24/22 Rx HYDROcodone/APAP 5-325MG [Guion 1 - 2 tab PO Q6HR PRN #36 tab 02/15/22 02/24/22 Rx 5-325] Allergies Allergy/AdvReac Type Severity Reaction Status Date / Time morphine AdvReac Nausea & Verified 02/24/22 13:48 Vomiting Physical Exam Vitals: Vital Signs Temp Pulse Pulse Pulse Pulse Pulse Resp 02/25/22 01:26 98.9 F 64 15 02/24/22 20:46 98.6 F 62 20 02/24/22 18:48 97.6 F 62 16 02/24/22 16:09 97.6 F 60 75 60 18 02/24/22 15:30 59 L 17 02/24/22 15:00 63 21 02/24/22 14:30 62 20 02/24/22 14:02 62 18 02/24/22 13:53 67 18 02/24/22 13:48 72 18 02/24/22 13:47 63 18 02/24/22 13:30 63 18 02/24/22 13:00 70 17 02/24/22 12:52 97.6 F 62 18 BP BP BP BP Pulse Ox 02/25/22 01:26 108/69 95 02/24/22 20:46 117/65 02/24/22 18:48 110/69 100 02/24/22 16:09 109/71 96/61 86/61 98 02/24/22 15:30 120/72 97 02/24/22 15:00 124/70 98 02/24/22 14:30 115/74 98 02/24/22 14:02 121/64 96 02/24/22 13:53 101/52 02/24/22 13:48 88/65 02/24/22 13:47 106/63 02/24/22 13:30 109/66 99 02/24/22 13:00 98/87 98 02/24/22 12:52 107/83 Intake and Output 02/24/22 02/25/22 02/25/22 22:59 06:59 14:59 Intake Total 240 Output Total 800 Balance -560 Intake: Oral 240 Output: Urine 800 Other: Voiding Method Toilet # Voids 0 1 Weight 87.271 kg Results 02/25/22 04:36 02/25/22 04:36 Cardiac Enzymes 02/24/22 02/24/22 02/24/22 Range/Units 12:56 12:56 16:11 AST 27 (17-59) U/L Troponin I <0.012 <0.012 (0.000-0.034) ng/mL 02/24/22 Range/Units 19:16 AST (17-59) U/L Troponin I <0.012 (0.000-0.034) ng/mL Coagulation 02/24/22 Range/Units 12:56 PT 12.1 H (9.0-12.0) sec APTT 30.1 H (22.0-30.0) sec CBC 02/24/22 Range/Units 12:56 WBC 7.9 (3.8-10.6) k/uL RBC 4.13 L (4.30-5.90) m/uL Hgb 12.7 L (13.0-17.5) gm/dL Hct 39.4 (39.0-53.0) % Plt Count 299 (150-450) k/uL Comprehensive Metabolic Panel 02/24/22 Range/Units 12:56 Sodium 134 L (137-145) mmol/L Potassium 4.6 (3.5-5.1) mmol/L Chloride 99 (98-107) mmol/L Carbon Dioxide 21 L (22-30) mmol/L BUN 42 H (9-20) mg/dL Creatinine 1.95 H (0.66-1.25) mg/dL Glucose 282 H (74-99) mg/dL Calcium 9.6 (8.4-10.2) mg/dL AST 27 (17-59) U/L ALT 22 (4-49) U/L Alkaline Phosphatase 46 (38-126) U/L Total Protein 7.1 (6.3-8.2) g/dL Albumin 4.1 (3.5-5.0) g/dL Current Medications Generic Name Dose Route Start Last Admin Trade Name Freq PRN Reason Stop Dose Admin Apixaban 5 mg 02/24/22 21:00 02/24/22 20:24 Apixaban 5 Mg Tab PO 5 mg BID JOSE Administration Protocol Aspirin 325 mg 02/25/22 09:00 Aspirin 325 Mg Tab PO DAILY JOSE Atorvastatin Calcium 40 mg 02/24/22 21:00 02/24/22 20:24 Atorvastatin 40 Mg Tab PO 40 mg HS JOSE Administration Dextrose/Water 25 ml 02/24/22 15:56 Dextrose 50% Syringe 50 Ml IVP PER PROTOCOL PRN Hypoglycemia Protocol Dextrose/Water 50 ml 02/24/22 15:56 Dextrose 50% Syringe 50 Ml IVP PER PROTOCOL PRN Hypoglycemia Protocol Gabapentin 200 mg 02/24/22 16:00 02/24/22 20:24 Gabapentin 100 Mg Cap PO 200 mg TID JOSE Administration Insulin Aspart 0 unit 02/24/22 17:30 02/24/22 20:24 Insulin Aspart (Novolog) 100 Unit/Ml Vial SQ 4 unit ACHS JOSE Administration Protocol Insulin Detemir 10 unit 02/25/22 01:01 02/25/22 01:28 Insulin Detemir (Levemir) 100 Unit/Ml Syr SQ Not Given HS JOSE Metoprolol Succinate 25 mg 02/25/22 09:00 Metoprolol Succinate (Er) 25 Mg Tab.Er.24h PO QAM JOSE Nitroglycerin 0.4 mg 02/24/22 14:48 Nitroglycerin Sl Tabs 0.4 Mg Tab SUBLINGUAL Q5M PRN Chest Pain Non-Formulary Medication 3 mg 02/28/22 09:00 Dulaglutide [Trulicity] SQ MO JOSE Tamsulosin HCl 0.4 mg 02/24/22 21:00 02/24/22 20:24 Tamsulosin 0.4 Mg Cap.Er.24h PO 0.4 mg HS JOSE Administration Intake and Output 02/24/22 02/25/22 02/25/22 22:59 06:59 14:59 Intake Total 240 Output Total 800 Balance -560 Intake: Oral 240 Output: Urine 800 Other: Voiding Method Toilet # Voids 0 1 Weight 87.271 kg 02/24/22 12:56 02/24/22 12:56
[2022-02-25 12:12] LABS: Glucose,Whole Blood 190 mg/dL (70-110)
--- NOTE | 2022-02-25 14:27 | NM ---
EXAMINATION TYPE: NM pul vent and perfuse DATE OF EXAM: 02/25/2022 COMPARISON: Chest x-ray 02/24/2022 HISTORY: Elevated d-dimer TECHNIQUE: Utilizing inhalation of 36.6 mCi Tc 99m DTPA aerosol and intravenous injection of 4.8 mCi of Tc 99m MAA, ventilation and perfusion images are acquired post injection in multiple projections. FINDINGS: No moderate or large mismatched defects are evident. No triple matched defects are evident. IMPRESSION: Low probability for pulmonary embolism.
[2022-02-25 15:49] VITALS: BP 133/76; TEMP 98.1
[2022-02-25 16:13] VITALS: PULSE 81
[2022-02-25 17:14] LABS: Glucose,Whole Blood 231 mg/dL (70-110)
[2022-02-28] MEDS ORDERED: NON FORMULARY DRUG (Dulaglutide [Trulicity] 3 MG/0.5 ML Each) SQ SCH (09:00)
== END 2022-02-25 19:19 | disposition home or self-care (01) ==
LOC: EC 12:41 → 6NMEDSUR 15:01
PROVIDERS: ADMIT Internal Medicine; ATTEND Internal Medicine
DX: I95.1 Orthostatic hypotension (principal); R22.41 Localized swelling, mass and lump, right lower limb; N17.9 Acute kidney failure, unspecified; I48.0 Paroxysmal atrial fibrillation; E78.5 Hyperlipidemia, unspecified; E11.22 Type 2 diabetes mellitus with diabetic chronic kidney disease; I12.9 Hypertensive chronic kidney disease with stage 1 through stage 4 chronic kidney disease, or unspecified chronic kidney disease; N18.9 Chronic kidney disease, unspecified; I42.8 Other cardiomyopathies; R19.7 Diarrhea, unspecified; I34.0 Nonrheumatic mitral (valve) insufficiency; R79.89 Other specified abnormal findings of blood chemistry; Z86.73 Personal history of transient ischemic attack (TIA), and cerebral infarction without residual deficits; Z95.0 Presence of cardiac pacemaker; Z96.651 Presence of right artificial knee joint; Z79.01 Long term (current) use of anticoagulants; Z79.4 Long term (current) use of insulin; Z79.899 Other long term (current) drug therapy; Z88.5 Allergy status to narcotic agent; Z20.822 Contact with and (suspected) exposure to COVID-19
CPT/HCPCS: 96372 ×2; 96360; 99285; 36415; 93005; 85379; 80061; 80053; 80048; 83735; 84484; 85025 ×2; 85610; 85730; 83036; 87635; 71046; 93971; 78582; G0378 ×2; A9540; A9567

== ENCOUNTER 2023-05-11 16:03 | Emergency (ER) | payer MEDICARE ==
[2023-05-11] MEDS ORDERED: PANTOPRAZOLE 40 MG/10 ML VIAL IVP STA (16:10)
[2023-05-11] MEDS ORDERED: SODIUM CHLORIDE 0.9% 1,000 ML IV STA (16:10)
[2023-05-11] MEDS ORDERED: ONDANSETRON 4 MG/2 ML VIAL IVP STA (16:10)
--- NOTE | 2023-05-11 16:20 | ED ---
Abdominal Pain HPI - General Chief Complaint: GI Bleed Stated Complaint: GI Bleed Time Seen by Provider: 05/11/23 16:10 Source: patient, RN notes reviewed, old records reviewed Mode of arrival: ambulatory Limitations: no limitations - History of Present Illness Initial Comments: This 82-year-old male to the emergency department for evaluation of severe left- sided abdominal pain left flank pain left lower quadrant abdominal pain. Patient has nausea no vomiting no fevers, patient is also no blood in the stool. History of colonoscopy negative, history of diverticulitis MD Complaint: abdominal pain, other (Left lower quadrant abdominal pain) -: days(s) Location: LLQ, suprapubic Radiation: suprapubic, L flank Migration to: suprapubic Severity: moderate Severity scale (1-10): 6 Quality: sharp Consistency: constant Improves With: nothing Worsens With: nothing Associated Symptoms: nausea, diarrhea Treatments Prior to Arrival: other (0) - Related Data Home Medications Medication Instructions Recorded Confirmed Fenofibrate Nanocrystallized 145 mg PO DAILY 01/18/18 02/24/22 [Tricor] Tamsulosin HCl [Flomax] 0.4 mg PO HS 01/18/18 02/24/22 Apixaban [Eliquis] 5 mg PO BID 07/31/18 02/24/22 Metoprolol Succinate (ER) [Toprol 25 mg PO QAM 07/30/20 02/24/22 XL] Mv-Min/Folic/K1/Lycopen/Lutein 1 tab PO HS 07/04/21 02/24/22 [Centrum Silver Men Tablet] Sodium Bicarbonate Tab 650 mg PO HS 07/04/21 02/24/22 Atorvastatin [Lipitor] 40 mg PO HS 07/14/21 02/24/22 Dulaglutide [Trulicity] 3 mg SQ MO 02/11/22 02/24/22 Previous Rx's Medication Instructions Recorded Furosemide [Lasix] 40 mg PO DAILY #30 tablet 07/06/21 Docusate [Colace] 100 mg PO DAILY #30 capsule 02/15/22 Gabapentin [Neurontin] 200 mg PO TID #0 02/15/22 HYDROcodone/APAP 5-325MG [Switchback 1 - 2 tab PO Q6HR PRN #36 tab 02/15/22 5-325] Amoxic-Pot Clav 875-125Mg 1 tab PO Q12HR #20 tablet 05/11/23 [Augmentin 875-125] Ondansetron Odt [Zofran ODT] 4 mg PO Q8HR PRN #30 tab 05/11/23 Allergies Allergy/AdvReac Type Severity Reaction Status Date / Time morphine AdvReac Nausea & Verified 05/11/23 16:08 Vomiting Review of Systems ROS Statement: Those systems with pertinent positive or pertinent negative responses have been documented in the HPI. ROS Other: All systems not noted in ROS Statement are negative. Past Medical History Past Medical History: Atrial Fibrillation, CVA/TIA, Diabetes Mellitus, Hyperl ipidemia, Hypertension, Pneumonia, Prostate Disorder, Renal Disease Additional Past Medical History / Comment(s): leaking mitral valve,, cyst on kidney, "small brain aneurysm", TIA 06/2021 ago-no residual effects, "constant diarrhea", "feet always tingling" History of Any Multi-Drug Resistant Organisms: None Reported Past Surgical History: Appendectomy, Cholecystectomy, Heart Catheterization, Orthopedic Surgery, Pacemaker, Tonsillectomy Additional Past Surgical History / Comment(s): torn retina rt eye surgery x 2, massiel cataracts, colonoscopy. left shoulder rotator cuff Past Anesthesia/Blood Transfusion Reactions: Previous Problems w/ Anesthesia Additional Past Anesthesia/Blood Transfusion Reaction / Comment(s): diff waking up after colonoscopy-took long time Type of Cardiac Device: Permanent Pacemaker Device Placement Date:: 12/2019 Past Psychological History: No Psychological Hx Reported Smoking Status: Never smoker Past Alcohol Use History: None Reported Past Drug Use History: None Reported - Past Family History Daughter(s) Family Medical History: Cancer Brother(s) Family Medical History: Cancer Father Family Medical History: Cancer General Exam Limitations: no limitations General appearance: alert, in no apparent distress Head exam: Present: atraumatic, normocephalic, normal inspection Eye exam: Present: normal appearance, PERRL, EOMI. Absent: scleral icterus, conjunctival injection, periorbital swelling ENT exam: Present: normal exam, mucous membranes moist Neck exam: Present: normal inspection. Absent: tenderness, meningismus, lymphadenopathy Respiratory exam: Present: normal lung sounds bilaterally. Absent: respiratory distress, wheezes, rales, rhonchi, stridor Cardiovascular Exam: Present: regular rate, normal rhythm, normal heart sounds. Absent: systolic murmur, diastolic murmur, rubs, gallop, clicks GI/Abdominal exam: Present: distended, tenderness, normal bowel sounds. Absent: guarding, rebound, rigid Extremities exam: Present: normal inspection, full ROM, normal capillary refill. Absent: tenderness, pedal edema, joint swelling, calf tenderness Back exam: Present: normal inspection Neurological exam: Present: alert, oriented X3, CN II-XII intact Psychiatric exam: Present: normal affect, normal mood Skin exam: Present: warm, dry, intact, normal color. Absent: rash Course Vital Signs 05/11/23 05/11/23 16:06 19:19 Temperature 98.4 F Pulse Rate 56 L 63 Respiratory 20 18 Rate Blood Pressure 145/87 112/79 O2 Sat by Pulse 96 95 Oximetry - Reevaluation(s) Reevaluation #1: Medical record is reviewed Reevaluation #2: Patient symptoms are improved, feels good for discharge home able tolerate oral intake Reevaluation #3: Patient informed results and questions have been answered Reevaluation #4: Was pt. sent in by a medical professional or institution (, PA, YARN TEXTURING MACHINE OPERATOR, urgent c are, hospital, or custodial...) When possible be specific @ -no Did you speak to anyone other than the patient for history (EMS, parent, family, police, friend...)? What history was obtained from this source @ -no Did you review nursing and triage notes (agree or disagree)? Why? @ -agree Are old charts reviewed (outside hosp., previous admission, EMS record, old EKG, old radiological studies, urgent care reports/EKG's, custodial records)? Report findings @ -yes Differential Diagnosis (chest pain, altered mental status, abdominal pain women, abdominal pain men, vaginal bleeding, weakness, fever, dyspnea, syncope, headache, dizziness, GI bleed, back pain, seizure, CVA, palpatations, mental health, musculoskeletal)? @ -prior EKG interpreted by me (3pts min.). @ -no X-rays interpreted by me (1pt min.). @ -no CT interpreted by me (1pt min.). @ -yes U/S interpreted by me (1pt. min.). @ -no What testing was considered but not performed or refused? (CT, X-rays, U/S, labs)? Why? @ -none What meds were considered but not given or refused? Why? @ -none Did you discuss the management of the patient with other professionals (professionals i.e. , PA, YARN TEXTURING MACHINE OPERATOR, lab, RT, psych nurse, secondary social studies teacher, airway controller, teacher, senior escrow officer, nurse case management)? Give summary @ -no Was smoking cessation discussed for >3mins.? @ -no Was critical care preformed (if so, how long)? @ -no Were there social determinants of health that impacted care today? How? (Homelessness, low income, unemployed, alcoholism, drug addiction, transportation, low edu. Level, literacy, decrease access to med. care, alf, rehab)? @ -none Was there de-escalation of care discussed even if they declined (Discuss DNR or withdrawal of care, Hospice)? DNR status @ -no What co-morbidities impacted this encounter? (DM, HTN, Smoking, COPD, CAD, Cancer, CVA, ARF, Chemo, Hep., AIDS, mental health diagnosis, sleep apnea, morbid obesity)? @ -none Was patient admitted / discharged? Hospital course, mention meds given and route, prescriptions, significant lab abnormalities, going to OR and other pertinent info. @ - 82 female to the emergency department for evaluation of left flank pain left-sided abdominal pain left lower quadrant abdominal pain and groin pain. Patient's positive for colitis likely diverticulitis and patient can be discharged home Discharge Undiagnosed new problem with uncertain prognosis? @ -no Drug Therapy requiring intensive monitoring for toxicity (Heparin, Nitro, Insulin, Cardizem)? @ -no Were any procedures done? @ -no Diagnosis/symptom? @ -Abdominal pain colitis and diverticulitis Acute, or Chronic, or Acute on Chronic? @ -Acute Uncomplicated (without systemic symptoms) or Complicated (systemic symptoms)? @ -Complicated Side effects of treatment? @ -no Exacerbation, Progression, or Severe Exacerbation? @ -exacerbation Poses a threat to life or bodily function? How? (Chest pain, [place], MT, pneumonia, PE, COPD, DKA, ARF, appy, cholecystitis, CVA, Diverticulitis, Homicidal, Suicidal, threat to staff... and all critical care pts) @ -yes with extreme of age and abdominal pain Reevaluation #5: Differential Abdominal Pain Women: Appendicitis, Cholecystitis, diverticulosis, ischemic bowel, pancreatitis, hepatitis, UTI, gastroenteritis, AAA, incarcerated hernia, bowel obstruction, constipation, inflammatory bowel, hepatitis, peptic ulcer disease, splenic infarction, perforated viscus, vulvitis, ovarian torsion, PID, kidney stone, placenta abruption, this is not meant to be an all-inclusive list Medical Decision Making - Medical Decision Making 82 female to the emergency department for evaluation of left flank pain left- sided abdominal pain left lower quadrant abdominal pain and groin pain. Patient's positive for colitis likely diverticulitis and patient can be discharged home - Lab Data Result diagrams: 05/11/23 16:05/11/23 16: Lab Results 05/11/23 05/11/23 05/11/23 Range/Units 16: 16: 16: WBC 11.0 H (3.8-10.6) k/uL RBC 5.08 (4.30-5.90) m/uL Hgb 16.4 (13.0-17.5) gm/dL Hct 48.2 (39.0-53.0) % MCV 95.0 (80.0-100.0) fL MCH 32.3 (25.0-35.0) pg MCHC 33.9 (31.0-37.0) g/dL RDW 13.0 (11.5-15.5) % Plt Count 187 (150-450) k/uL MPV 7.5 Neutrophils % 73 % Lymphocytes % 17 % Monocytes % 7 % Eosinophils % 1 % Basophils % 1 % Neutrophils # 8.0 H (1.3-7.7) k/uL Lymphocytes # 1.9 (1.0-4.8) k/uL Monocytes # 0.8 (0-1.0) k/uL Eosinophils # 0.1 (0-0.7) k/uL Basophils # 0.1 (0-0.2) k/uL PT 12.3 (10.0-12.5) sec INR 1.2 H (<1.2) APTT 31.9 H (22.0-30.0) sec Sodium 137 (137-145) mmol/L Potassium 4.0 (3.5-5.1) mmol/L Chloride 100 (98-107) mmol/L Carbon Dioxide 22 (22-30) mmol/L Anion Gap 15 mmol/L BUN 25 H (9-20) mg/dL Creatinine 2.02 H (0.66-1.25) mg/dL Est GFR (CKD-EPI)AfAm 35 (>60 ml/min/1.73 sqM) Est GFR (CKD-EPI)NonAf 30 (>60 ml/min/1.73 sqM) Glucose 150 H (74-99) mg/dL Plasma Lactic Acid Marcos (0.7-2.0) mmol/L Calcium 9.7 (8.4-10.2) mg/dL Magnesium 2.2 (1.6-2.3) mg/dL Total Bilirubin 1.9 H (0.2-1.3) mg/dL AST 25 (17-59) U/L ALT 16 (4-49) U/L Alkaline Phosphatase 40 (38-126) U/L Troponin I (0.000-0.034) ng/mL Total Protein 8.1 (6.3-8.2) g/dL Albumin 4.5 (3.5-5.0) g/dL Lipase 262 (23-300) U/L Blood Type Blood Type Confirm Blood Type Recheck Bld Type Recheck Status Antibody Screen Spec Expiration Date 05/11/23 05/11/23 05/11/23 Range/Units 16:23 16:23 16:23 WBC (3.8-10.6) k/uL RBC (4.30-5.90) m/uL Hgb (13.0-17.5) gm/dL Hct (39.0-53.0) % MCV (80.0-100.0) fL MCH (25.0-35.0) pg MCHC (31.0-37.0) g/dL RDW (11.5-15.5) % Plt Count (150-450) k/uL MPV Neutrophils % % Lymphocytes % % Monocytes % % Eosinophils % % Basophils % % Neutrophils # (1.3-7.7) k/uL Lymphocytes # (1.0-4.8) k/uL Monocytes # (0-1.0) k/uL Eosinophils # (0-0.7) k/uL Basophils # (0-0.2) k/uL PT (10.0-12.5) sec INR (<1.2) APTT (22.0-30.0) sec Sodium (137-145) mmol/L Potassium (3.5-5.1) mmol/L Chloride (98-107) mmol/L Carbon Dioxide (22-30) mmol/L Anion Gap mmol/L BUN (9-20) mg/dL Creatinine (0.66-1.25) mg/dL Est GFR (CKD-EPI)AfAm (>60 ml/min/1.73 sqM) Est GFR (CKD-EPI)NonAf (>60 ml/min/1.73 sqM) Glucose (74-99) mg/dL Plasma Lactic Acid Marcos 1.1 (0.7-2.0) mmol/L Calcium (8.4-10.2) mg/dL Magnesium (1.6-2.3) mg/dL Total Bilirubin (0.2-1.3) mg/dL AST (17-59) U/L ALT (4-49) U/L Alkaline Phosphatase (38-126) U/L Troponin I <0.012 (0.000-0.034) ng/mL Total Protein (6.3-8.2) g/dL Albumin (3.5-5.0) g/dL Lipase (23-300) U/L Blood Type Blood Type Confirm O Positive Blood Type Recheck Bld Type Recheck Status Antibody Screen Spec Expiration Date 05/11/23 05/11/23 Range/Units 16:34 16:34 WBC (3.8-10.6) k/uL RBC (4.30-5.90) m/uL Hgb (13.0-17.5) gm/dL Hct (39.0-53.0) % MCV (80.0-100.0) fL MCH (25.0-35.0) pg MCHC (31.0-37.0) g/dL RDW (11.5-15.5) % Plt Count (150-450) k/uL MPV Neutrophils % % Lymphocytes % % Monocytes % % Eosinophils % % Basophils % % Neutrophils # (1.3-7.7) k/uL Lymphocytes # (1.0-4.8) k/uL Monocytes # (0-1.0) k/uL Eosinophils # (0-0.7) k/uL Basophils # (0-0.2) k/uL PT (10.0-12.5) sec INR (<1.2) APTT (22.0-30.0) sec Sodium (137-145) mmol/L Potassium (3.5-5.1) mmol/L Chloride (98-107) mmol/L Carbon Dioxide (22-30) mmol/L Anion Gap mmol/L BUN (9-20) mg/dL Creatinine (0.66-1.25) mg/dL Est GFR (CKD-EPI)AfAm (>60 ml/min/1.73 sqM) Est GFR (CKD-EPI)NonAf (>60 ml/min/1.73 sqM) Glucose (74-99) mg/dL Plasma Lactic Acid Marcos (0.7-2.0) mmol/L Calcium (8.4-10.2) mg/dL Magnesium (1.6-2.3) mg/dL Total Bilirubin (0.2-1.3) mg/dL AST (17-59) U/L ALT (4-49) U/L Alkaline Phosphatase (38-126) U/L Troponin I (0.000-0.034) ng/mL Total Protein (6.3-8.2) g/dL Albumin (3.5-5.0) g/dL Lipase (23-300) U/L Blood Type O Positive O Positive Blood Type Confirm Blood Type Recheck No Previous Record O Pos Bld Type Recheck Status CABO Indicated No Antibody Screen NEGATIVE Spec Expiration Date 05/14/2023233305/14/20232333 - EKG Data -: EKG Interpreted by Me (EKG is paced 68 QRS 196 QTc 496) - Radiology Data Radiology results: report reviewed (CT of the abdomen and pelvis positive for colitis from underlying diverticulitis), image reviewed Disposition Clinical Impression: Abdominal pain, Colitis, Diverticulitis Disposition: HOME SELF-CARE Condition: Good Instructions (If sedation given, give patient instructions): Colitis (ED) Prescriptions: Amoxic-Pot Clav 875-125Mg [Augmentin 875-125] 1 tab PO Q12HR #20 tablet Ondansetron Odt [Zofran ODT] 4 mg PO Q8HR PRN #30 tab PRN Reason: nausea/vomiting Is patient prescribed a controlled substance at d/c from ED?: No Referrals: Perry Nichols MD [Primary Care Provider] - 1-2 days Time of Disposition: 19:15
[2023-05-11 16:43] VITALS: TEMP 98.4
[2023-05-11 16:47] LABS: Basophils # (A) 0.1 k/uL (0-0.2); Basophils % (A) 1 %; Eosinophils # (A) 0.1 k/uL (0-0.7); Eosinophils % (A) 1 %; HCT 48.2 % (39.0-53.0); HGB 16.4 gm/dL (13.0-17.5); Lymphocytes # (A) 1.9 k/uL (1.0-4.8); Lymphocytes % (A) 17 %; MCH 32.3 pg (25.0-35.0); MCHC 33.9 g/dL (31.0-37.0); Mean Platelet Volume 7.5; Monocytes # (A) 0.8 k/uL (0-1.0); Monocytes % (A) 7 %; Neutrophils % (A) 73 %; Platelet Count 187 k/uL (150-450); RBC 5.08 m/uL (4.30-5.90)
[2023-05-11 16:59] LABS: ALT 16 U/L (4-49); AST 25 U/L (17-59); African American GFR (CKD) 35 (>60 ml/min/1.73 sqM); Albumin 4.5 g/dL (3.5-5.0); Alkaline Phosphatase 40 U/L (38-126); Anion Gap 15 mmol/L; Blood Urea Nitrogen 25 mg/dL (9-20); Calcium 9.7 mg/dL (8.4-10.2); Carbon Dioxide 22 mmol/L (22-30); Chloride 100 mmol/L (98-107); Glucose 150 mg/dL (74-99); Lipase 262 U/L (23-300); Magnesium 2.2 mg/dL (1.6-2.3); Non-African American GFR(CKD) 30 (>60 ml/min/1.73 sqM); Sodium 137 mmol/L (137-145); Total Bilirubin 1.9 mg/dL (0.2-1.3); Total Protein 8.1 g/dL (6.3-8.2)
[2023-05-11 17:00] LABS: INR 1.2 (<1.2); Partial Thromboplastin Time 31.9 sec (22.0-30.0); Prothrombin Time 12.3 sec (10.0-12.5)
--- NOTE | 2023-05-11 18:41 | CT ---
EXAMINATION TYPE: CT abdomen pelvis wo con CT DLP: 679.6 mGycm, Automated exposure control for dose reduction was used. DATE OF EXAM: 05/11/2023 5:26 PM COMPARISON: None. CLINICAL INDICATION:Male, 82 years old with history of pain; abdominal pain TECHNIQUE: Axial CT of the abdomen and pelvis. Coronal reformats were created on a separate workstat ion. Contrast used: mL of , (none if empty) -- due to low GFR, the patient could not be injected Oral contrast used: without Oral Contrast (none if empty) FINDINGS: LOWER CHEST: Heart is mildly enlarged with distal ends of pacemaker leads seen. No pericardial effusi on. Possible small sliding hiatal hernia. Mild subsegmental atelectasis versus scarring in the lung b ases. ABDOMEN Exam is limited by lack of contrast. LIVER: Unremarkable GALLBLADDER AND BILE DUCTS: Status post cholecystectomy. Nondilated biliary tree. PANCREAS: Mild diffuse atrophy. A few coarse calcifications towards the tail can be seen as sequela o f chronic pancreatitis. SPLEEN: Unremarkable. ADRENAL GLANDS: Unremarkable. KIDNEYS AND URETERS: No renal/ureteral calculi or hydroureteronephrosis seen. Large cyst with a few p eripheral calcifications seen in the lower pole of the right kidney measuring up to 10.4 cm. Farther cranially posteriorly, additional cyst measures 5 cm. In the upper pole towards the right, additional cyst measures 4.2 cm. No definite left renal lesions can be seen. PELVIS BLADDER: Partially filled but not overtly distended. Mildly thickened appearance to the wall could be from chronic outlet obstruction versus cystitis. REPRODUCTIVE: Prostate appears enlarged measuring 6.5 x 6.1 cm, indenting the base of the bladder. ABDOMEN & PELVIS STOMACH AND BOWEL: Stomach and small bowel are nondistended. There is no evidence of obstruction. Lm endix is not identified with certainty, however there is no inflammatory process seen in the RLQ. Mil d fatty infiltration ileocecal valve. Mild/moderate stool throughout the colon. There are numerous co lonic diverticula seen distributed throughout, with wall thickening and inflammatory changes in a sophie rt segment of the distal sigmoid, probably centered on a diverticulum. PERITONEUM/RETROPERITONEUM: No evidence of pneumoperitoneum or free fluid. VASCULATURE: Moderate atherosclerotic calcifications are present throughout the abdominal aorta and i ts branches. No evidence of aortic aneurysm. MUSCULOSKELETAL: No acute osseous abnormality. Mild diffuse degenerative changes. LYMPH NODES: No gross evidence for lymphadenopathy. SOFT TISSUE/ABDOMINAL WALL: Small bilateral fat-containing inguinal hernias. IMPRESSION: 1. Inflammatory changes in the distal sigmoid colon, likely diverticulitis or focal colitis. Follow- up recommended to exclude any chance of underlying neoplasm. 2. Other chronic and likely incidental findings, as described above.
[2023-05-11] MEDS ORDERED: AMPICILLIN-SULBACTAM 3 GM in SODIUM CHLORIDE 0.9% 100 ML IVPB STA (19:10)
[2023-05-11 19:29] VITALS: BP 112/79; PULSE 63; RESP 18
[2023-05-11] MEDS ORDERED: ONDANSETRON ODT 4 MG TAB PO STA (19:30)
[2023-05-11] MEDS ORDERED: ONDANSETRON 4 MG ODT STARTER PACK 2 TAB BTL PO STA (19:30)
[2023-05-11] MEDS ORDERED: AMOXIC-POT CLAV 875MG STARTER PACK 2 TAB BTL PO STA (19:30)
[2023-05-11] MEDS ORDERED: AMOXIC-POT CLAV 875-125MG 1 EACH TAB PO STA (19:30)
[2023-05-11] MEDS ORDERED: MORPHINE SULFATE 4 MG/ML SYRINGE IVP STA (19:32)
[2023-05-11] MEDS ORDERED: traMADol 50 MG STARTER PACK 3 TAB BTL PO STA (19:32)
[2023-05-11] MEDS ORDERED: KETOROLAC 15 MG/ML 1 ML VIAL IVP STA (19:32)
== END 2023-05-11 19:56 | disposition home or self-care (01) ==
LOC: EC 16:03
DX: K52.9 Noninfective gastroenteritis and colitis, unspecified (principal); K57.32 Diverticulitis of large intestine without perforation or abscess without bleeding; E78.5 Hyperlipidemia, unspecified; I10 Essential (primary) hypertension; I48.91 Unspecified atrial fibrillation; E11.9 Type 2 diabetes mellitus without complications; Z95.0 Presence of cardiac pacemaker; Z79.01 Long term (current) use of anticoagulants; Z79.899 Other long term (current) drug therapy; Z88.5 Allergy status to narcotic agent
CPT/HCPCS: 36415; 93005; 86900; 86901; 80053; 83605; 83690; 83735; 84484; 85025; 85610; 85730; 86850; 74176; 99285; 96365; 96375 ×3; 96361 ×3; J2405; J0295; J1885; S0119; C9113

== ENCOUNTER → 2023-06-22 | Outpatient (CLI) | payer MEDICARE ==
[2023-06-22 15:43] LABS: HCT 45.7 % (39.6-50.0); HGB 15.1 g/dL (13.0-17.0); MCH 31.2 pg (27.0-32.0); MCV 94.4 FL (80.0-97.0); Mean Platelet Volume 9.8 FL (9.5-12.2); NRBC Per 100 WBC 0 X 10*3/uL (0.00-0.01); Platelet Count 181 X 10*3/uL (140-440); RBC 4.84 X 10*6/uL (4.40-5.60); RDW 13.2 % (11.5-14.5); WBC 4.97 X 10*3/uL (4.50-10.00)
[2023-06-22 16:28] LABS: % Iron Saturation 22.16 (15.00-50.00); ALT 12 U/L (10-49); AST 19 U/L (14-35); Albumin 4.1 g/dL (3.8-4.9); Albumin/Globulin Ratio 1.46 Ratio (1.60-3.17); Alkaline Phosphatase 45 U/L (41-126); BUN/Creat Ratio 13.25 Ratio (12.00-20.00); Blood Urea Nitrogen 21.2 mg/dL (9.0-27.0); Calcium 9.6 mg/dL (8.7-10.3); Carbon Dioxide 24.5 mmol/L (21.6-31.8); Chloride 100 mmol/L (96-109); Globulin 2.8 g/dL (1.6-3.3); Glucose 256 mg/dL (70-110); Iron 84 UG/DL (65-175); Phosphorus 3.9 mg/dL (2.4-5.1); Potassium 4.2 mmol/L (3.5-5.5); Sodium 137 mmol/L (135-145); Total Bilirubin 0.6 mg/dL (0.3-1.2); Total Iron Binding Capacity 379 UG/DL (228-460); Total Protein 6.9 g/dL (6.2-8.2)
== END | disposition home or self-care (01) ==
LOC: LABWHC1 10:25
PROVIDERS: ATTEND Nurse Practitioner Family
DX: E55.9 Vitamin D deficiency, unspecified (principal); D63.1 Anemia in chronic kidney disease; M10.9 Gout, unspecified; N18.32 Chronic kidney disease, stage 3b
CPT/HCPCS: 36415; 80053; 82306; 82728; 83540; 83550; 83735; 83970; 84100; 84550; 85027

== ENCOUNTER → 2023-07-17 | Outpatient (CLI) | payer MEDICARE ==
--- NOTE | 2023-07-17 16:39 | US ---
EXAMINATION TYPE: US kidneys/renal and bladder DATE OF EXAM: 07/17/2023 COMPARISON: 06/17/2019 CLINICAL INDICATION: Male, 83 years old with history of N18.32 CHRONIC KIDNEY DISEASE, STAGE 3B; Hist ory of multiple right renal cysts EXAM MEASUREMENTS: Right Kidney: 12.6 x 6.4 x 6.7 cm Left Kidney: 12.6 x 4.8 x 6.3 cm Post Void Residual Volume: NA mL Right Kidney: Multiple cysts, largest = 10.7 x 7.6 x 9.9 cm Left Kidney: wnl Bladder: wnl Bilateral Jets seen: Yes Normal Post Void Residual: NA There is no evidence for hydronephrosis at this point in time. No nephrolithiasis is seen. The urina ry bladder is anechoic. Bilateral ureteral jets are seen. IMPRESSION: Multiple large simple cyst noted right kidney. No solid masses seen.
== END | disposition home or self-care (01) ==
LOC: RADUSWWP 12:27
PROVIDERS: ATTEND Internal Medicine
DX: N18.32 Chronic kidney disease, stage 3b (principal); N28.1 Cyst of kidney, acquired
CPT/HCPCS: 76770

== ENCOUNTER 2023-10-07 15:33 | Inpatient (IN) | payer MEDICARE ==
--- NOTE | 2023-10-07 15:59 | ED ---
SOB HPI - General Chief Complaint: Shortness of Breath Stated Complaint: SOB Time Seen by Provider: 10/07/23 15:38 Source: patient, family, RN notes reviewed Mode of arrival: ambulatory Limitations: no limitations - History of Present Illness Initial Comments: 83-year-old male with a history of atrial fibrillation but no known history of COPD he has had a history of pneumonia in the past who presents with complaints of exertional dyspnea shortness of breath with chills this morning no fevers no sweats he has a dry cough feeling similar to what he had with pneumonia in the past. No overt chest pain no palpitations no decrease in oral intake. He has no known history of COPD or asthma. He is a retired security police officer. He does complain of a sore throat. MD Complaint: shortness of breath, cough - Related Data Home Medications Medication Instructions Recorded Confirmed Fenofibrate Nanocrystallized 145 mg PO DAILY 01/18/18 10/07/23 [Tricor] Tamsulosin HCl [Flomax] 0.4 mg PO HS 01/18/18 10/07/23 Apixaban [Eliquis] 5 mg PO BID 07/31/18 10/07/23 Metoprolol Succinate (ER) [Toprol 25 mg PO BID 07/30/20 10/07/23 XL] Sodium Bicarbonate Tab 650 mg PO HS 07/04/21 10/07/23 Cholecalciferol [Vitamin D3 (25 50 mcg PO DAILY 10/07/23 10/07/23 Mcg = 1000 Iu)] Dulaglutide [Trulicity] 4.5 mg SQ MO 10/07/23 10/07/23 Empagliflozin [Jardiance] 10 mg PO DAILY 10/07/23 10/07/23 Gabapentin [Neurontin] 400 mg PO QID 10/07/23 10/07/23 Allergies Allergy/AdvReac Type Severity Reaction Status Date / Time morphine AdvReac Nausea & Verified 10/07/23 18:00 Vomiting Review of Systems ROS Statement: Those systems with pertinent positive or pertinent negative responses have been documented in the HPI. ROS Other: All systems not noted in ROS Statement are negative. Past Medical History Past Medical History: Atrial Fibrillation, CVA/TIA, Diabetes Mellitus, Hyperlipidemia, Hypertension, Pneumonia, Prostate Disorder, Renal Disease Additional Past Medical History / Comment(s): leaking mitral valve,, cyst on kidney, "small brain aneurysm", TIA 06/2021 ago-no residual effects, "constant diarrhea", "feet always tingling" History of Any Multi-Drug Resistant Organisms: None Reported Past Surgical History: Appendectomy, Cholecystectomy, Heart Catheterization, Orthopedic Surgery, Pacemaker, Tonsillectomy Additional Past Surgical History / Comment(s): torn retina rt eye surgery x 2, massiel cataracts, colonoscopy. left shoulder rotator cuff Past Anesthesia/Blood Transfusion Reactions: Previous Problems w/ Anesthesia Additional Past Anesthesia/Blood Transfusion Reaction / Comment(s): diff waking up after colonoscopy-took long time Type of Cardiac Device: Permanent Pacemaker Device Placement Date:: 12/2019 Past Psychological History: No Psychological Hx Reported Smoking Status: Never smoker Past Alcohol Use History: None Reported Past Drug Use History: None Reported - Past Family History Daughter(s) Family Medical History: Cancer Brother(s) Family Medical History: Cancer Father Family Medical History: Cancer General Exam - General Exam Comments Initial Comments: This is a well-developed well-nourished awake alert oriented x 4 male Limitations: no limitations General appearance: alert Head exam: Present: atraumatic, normocephalic, normal inspection Eye exam: Present: normal appearance, PERRL, EOMI. Absent: scleral icterus, con junctival injection, periorbital swelling ENT exam: Present: mucous membranes dry, other (Erythematous posterior pharynx post tonsillectomy) Neck exam: Present: normal inspection, full ROM, other (No stridor JVD or bruits). Absent: tenderness, meningismus, lymphadenopathy Respiratory exam: Present: decreased breath sounds. Absent: respiratory distress, wheezes, rales, rhonchi, stridor Cardiovascular Exam: Present: regular rate, normal rhythm, normal heart sounds. Absent: systolic murmur, diastolic murmur, rubs, gallop, clicks GI/Abdominal exam: Present: soft, normal bowel sounds. Absent: distended, tenderness, guarding, rebound, rigid, bruit, pulsatile mass Extremities exam: Present: normal inspection, full ROM, normal capillary refill. Absent: tenderness, pedal edema, joint swelling, calf tenderness Back exam: Present: normal inspection Neurological exam: Present: alert, oriented X3, CN II-XII intact Psychiatric exam: Present: normal affect, normal mood Skin exam: Present: warm, dry, intact, normal color. Absent: rash Course Vital Signs 10/07/23 10/07/23 10/07/23 15:35 17:32 18:27 Temperature 98 F Pulse Rate 71 82 87 Respiratory 22 16 19 Rate Blood Pressure 138/88 O2 Sat by Pulse 98 Oximetry Medical Decision Making - Medical Decision Making The patient did get some improvement with the nebulizer treatment. The chest x- ray was consistent with congestive failure BNP was elevated at 3300+. I did discuss the case with Caren Reyna covering for Dr. Sawyer's group patient will be admitted with cardiology consultation. He will get IV Lasix. Was pt. sent in by a medical professional or institution (, PA, BUSINESS REPORTING DEVELOPER, urgent care, hospital, or retirement...) When possible be specific @ -No Did you speak to anyone other than the patient for history (EMS, parent, family, police, friend...)? What history was obtained from this source @ -The patient's Did you review nursing and triage notes (agree or disagree)? Why? @ -I reviewed and agree with nursing and triage notes Were old charts reviewed (outside hosp., previous admission, EMS record, old EKG, old radiological studies, urgent care reports/EKG's, retirement records)? Report findings @ -No old charts were reviewed Differential Diagnosis (chest pain, altered mental status, abdominal pain women, abdominal pain men, vaginal bleeding, weakness, fever, dyspnea, syncope, headache, dizziness, GI bleed, back pain, seizure, CVA, palpatations, mental health, musculoskeletal)? @ -Dyspnea, A-fib EKG interpreted by me (3pts min.). @ -As above EKG interpreted by me pacemaker rhythm 79 QRS duration 192 QT/QTc 433/467 X-rays interpreted by me (1pt min.). @ -X-ray demonstrates increased pulmonary vascular congestion consistent with CHF this was interpreted by me CT interpreted by me (1pt min.). @ -None done U/S interpreted by me (1pt. min.). @ -None done What testing was considered but not performed or refused? (CT, X-rays, U/S, labs)? Why? @ -None What meds were considered but not given or refused? Why? @ -None Did you discuss the management of the patient with other professionals (professionals i.e. , PA, BUSINESS REPORTING DEVELOPER, lab, RT, psych nurse, certified social workers in health care, auto transport driver, teacher, aoc director combat plans officer, field nurse case manager)? Give summary @ -Perry Moffett from Dr. Sawyer's group Was smoking cessation discussed for >3mins.? @ -No Was critical care preformed (if so, how long)? @ -31 minutes Were there social determinants of health that impacted care today? How? (Homelessness, low income, unemployed, alcoholism, drug addiction, tra nsportation, low edu. Level, literacy, decrease access to med. care, longterm, rehab)? @ -No Was there de-escalation of care discussed even if they declined (Discuss DNR or withdrawal of care, Hospice)? DNR status @ -No What co-morbidities impacted this encounter? (DM, HTN, Smoking, COPD, CAD, Cancer, CVA, ARF, Chemo, Hep., AIDS, mental health diagnosis, sleep apnea, morbid obesity)? @ -Atrial fibrillation, pacemaker, hypertension, diabetes, history of CVA Was patient admitted / discharged? Hospital course, mention meds given and route, prescriptions, significant lab abnormalities, going to OR and other pertinent info. @ -Hospital course Undiagnosed new problem with uncertain prognosis? @ -No Drug Therapy requiring intensive monitoring for toxicity (Heparin, Nitro, Insulin, Cardizem)? @ -No Were any procedures done? @ -No Diagnosis/symptom? @ -CHF, acute bronchospasm Acute, or Chronic, or Acute on Chronic? @ -Acute Uncomplicated (without systemic symptoms) or Complicated (systemic symptoms)? @ -Default Side effects of treatment? @ -No Exacerbation, Progression, or Severe Exacerbation? @ -Exacerbation Poses a threat to life or bodily function? How? (Chest pain, [place], NH, pneumonia, PE, COPD, DKA, ARF, appy, cholecystitis, CVA, Diverticulitis, Homicidal, Suicidal, threat to staff... and all critical care pts) @ -Potential, CHF - Lab Data Result diagrams: 10/07/23 16:03 10/07/23 16:03 Lab Results 10/07/23 10/07/23 10/07/23 Range/Units 16:03 16:03 16:03 WBC 5.4 (3.8-10.6) k/uL RBC 5.26 (4.30-5.90) m/uL Hgb 16.3 (13.0-17.5) gm/dL Hct 51.5 (39.0-53.0) % MCV 97.9 (80.0-100.0) fL MCH 31.0 (25.0-35.0) pg MCHC 31.7 (31.0-37.0) g/dL RDW 13.3 (11.5-15.5) % Plt Count 146 L (150-450) k/uL MPV 8.2 Neutrophils % 70 % Lymphocytes % 18 % Monocytes % 8 % Eosinophils % 2 % Basophils % 1 % Neutrophils # 3.8 (1.3-7.7) k/uL Lymphocytes # 1.0 (1.0-4.8) k/uL Monocytes # 0.4 (0-1.0) k/uL Eosinophils # 0.1 (0-0.7) k/uL Basophils # 0.0 (0-0.2) k/uL PT 13.1 H (10.0-12.5) sec INR 1.2 H (<1.2) APTT 29.0 (22.0-30.0) sec D-Dimer 0.35 (<0.60) mg/L FEU Sodium 139 (137-145) mmol/L Potassium 4.9 (3.5-5.1) mmol/L Chloride 110 H (98-107) mmol/L Carbon Dioxide 21 L (22-30) mmol/L Anion Gap 8 mmol/L BUN 22 H (9-20) mg/dL Creatinine 1.40 H (0.66-1.25) mg/dL Est GFR (CKD-EPI)AfAm 54 (>60 ml/min/1.73 sqM) Est GFR (CKD-EPI)NonAf 47 (>60 ml/min/1.73 sqM) Glucose 105 H (74-99) mg/dL Calcium 9.8 (8.4-10.2) mg/dL Magnesium 2.0 (1.6-2.3) mg/dL Total Bilirubin 1.6 H (0.2-1.3) mg/dL AST 33 (17-59) U/L ALT 16 (4-49) U/L Alkaline Phosphatase 35 L (38-126) U/L Troponin I (0.000-0.034) ng/mL NT-Pro-B Natriuret Pep 3330 pg/mL Total Protein 8.1 (6.3-8.2) g/dL Albumin 4.6 (3.5-5.0) g/dL Influenza Type A (PCR) (Not Detectd) Influenza Type B (PCR) (Not Detectd) RSV (PCR) (Not Detectd) SARS-CoV-2 (PCR) (Not Detectd) 10/07/23 10/07/23 Range/Units 16:03 16:04 WBC (3.8-10.6) k/uL RBC (4.30-5.90) m/uL Hgb (13.0-17.5) gm/dL Hct (39.0-53.0) % MCV (80.0-100.0) fL MCH (25.0-35.0) pg MCHC (31.0-37.0) g/dL RDW (11.5-15.5) % Plt Count (150-450) k/uL MPV Neutrophils % % Lymphocytes % % Monocytes % % Eosinophils % % Basophils % % Neutrophils # (1.3-7.7) k/uL Lymphocytes # (1.0-4.8) k/uL Monocytes # (0-1.0) k/uL Eosinophils # (0-0.7) k/uL Basophils # (0-0.2) k/uL PT (10.0-12.5) sec INR (<1.2) APTT (22.0-30.0) sec D-Dimer (<0.60) mg/L FEU Sodium (137-145) mmol/L Potassium (3.5-5.1) mmol/L Chloride (98-107) mmol/L Carbon Dioxide (22-30) mmol/L Anion Gap mmol/L BUN (9-20) mg/dL Creatinine (0.66-1.25) mg/dL Est GFR (CKD-EPI)AfAm (>60 ml/min/1.73 sqM) Est GFR (CKD-EPI)NonAf (>60 ml/min/1.73 sqM) Glucose (74-99) mg/dL Calcium (8.4-10.2) mg/dL Magnesium (1.6-2.3) mg/dL Total Bilirubin (0.2-1.3) mg/dL AST (17-59) U/L ALT (4-49) U/L Alkaline Phosphatase (38-126) U/L Troponin I <0.012 (0.000-0.034) ng/mL NT-Pro-B Natriuret Pep pg/mL Total Protein (6.3-8.2) g/dL Albumin (3.5-5.0) g/dL Influenza Type A (PCR) Not Detected (Not Detectd) Influenza Type B (PCR) Not Detected (Not Detectd) RSV (PCR) Not Detected (Not Detectd) SARS-CoV-2 (PCR) Not Detected (Not Detectd) Critical Care Time Critical Care Time: Yes Total Critical Care Time: 31 Disposition Clinical Impression: Congestive heart failure, Acute bronchospasm, Renal insufficiency, Elevated brain natriuretic peptide (BNP) level Disposition: ADMITTED IP TO THIS [facility] Condition: Fair Referrals: Perry Nichols MD [Primary Care Provider] - 1-2 days Time of Disposition: 20:06 Decision Date: 10/07/23 Decision Time: 19:30
[2023-10-07 16:25] LABS: Basophils % (A) 1 %; Eosinophils # (A) 0.1 k/uL (0-0.7); Eosinophils % (A) 2 %; HCT 51.5 % (39.0-53.0); HGB 16.3 gm/dL (13.0-17.5); Lymphocytes % (A) 18 %; MCHC 31.7 g/dL (31.0-37.0); MCV 97.9 fL (80.0-100.0); Mean Platelet Volume 8.2; Monocytes # (A) 0.4 k/uL (0-1.0); Monocytes % (A) 8 %; Neutrophils # (A) 3.8 k/uL (1.3-7.7); Neutrophils % (A) 70 %; Platelet Count 146 k/uL (150-450); RBC 5.26 m/uL (4.30-5.90); RDW 13.3 % (11.5-15.5); WBC 5.4 k/uL (3.8-10.6)
--- NOTE | 2023-10-07 16:34 | XR ---
EXAMINATION TYPE: XR chest 2V DATE OF EXAM: 10/07/2023 4:10 PM CLINICAL INDICATION:Male, 83 years old with history of difficulty breathing; PHH COMPARISON: None TECHNIQUE: XR chest 2V. Frontal and lateral views of the chest.. FINDINGS: Lines/Tubes/Devices: No indwelling lines are seen. Left chest dual-lead pacemaker with leads over the RV. Monitor leads. Heart/mediastinum: Heart appears mildly to moderately enlarged. Aorta is mildly tortuous with some a therosclerotic calcification. Pulmonary vascularity: Mild vascular congestion. Lungs/Pleura: There is no evidence of pleural effusion, focal consolidation, or pneumothorax. Mild s tranding in the left lung base, likely scarring or subsegmental atelectasis. Musculoskeletal: No acute osseous abnormality demonstrated in the limits of the exam. Mild/moderate degenerative changes. Other findings: None. IMPRESSION: Cardiomegaly with mild vascular congestion.
[2023-10-07 16:38] LABS: ALT 16 U/L (4-49); African American GFR (CKD) 54 (>60 ml/min/1.73 sqM); Albumin 4.6 g/dL (3.5-5.0); Anion Gap 8 mmol/L; Blood Urea Nitrogen 22 mg/dL (9-20); Calcium 9.8 mg/dL (8.4-10.2); Carbon Dioxide 21 mmol/L (22-30); Chloride 110 mmol/L (98-107); Glucose 105 mg/dL (74-99); Non-African American GFR(CKD) 47 (>60 ml/min/1.73 sqM); Sodium 139 mmol/L (137-145); Total Bilirubin 1.6 mg/dL (0.2-1.3); Total Protein 8.1 g/dL (6.3-8.2)
[2023-10-07 16:43] LABS: INR 1.2 (<1.2); Prothrombin Time 13.1 sec (10.0-12.5)
[2023-10-07 16:44] LABS: NT-Pro-B-Type Natriuretic Pept 3330 pg/mL
[2023-10-07 17:13] LABS: AST 33 U/L (17-59); Potassium 4.9 mmol/L (3.5-5.1)
[2023-10-07 17:14] LABS: Alkaline Phosphatase 35 U/L (38-126)
[2023-10-07] MEDS: IPRATROPIUM-ALBUTEROL 3 ML NEB INHALATION STA (17:32)
[2023-10-07] MEDS: SODIUM CHLORIDE 0.9% 1,000 ML IV STA (17:43)
[2023-10-07] MEDS: CEPHALEXIN 500MG STARTER PACK 4 CAP BTL PO STA (17:44)
[2023-10-07] MEDS: FUROSEMIDE 10 MG/ML 4 ML VIAL IV STA (19:27)
[2023-10-07] MEDS: SODIUM BICARBONATE TAB 650 MG TAB PO SCH (21:56)
[2023-10-07] MEDS: GABAPENTIN 400 MG CAP PO SCH (21:56)
[2023-10-07] MEDS: TAMSULOSIN 0.4 MG CAP.ER.24H PO SCH (21:56)
[2023-10-07] MEDS: METOPROLOL SUCCINATE (ER) 25 MG TAB.ER.24H PO SCH (21:56)
[2023-10-07] MEDS: APIXABAN 5 MG TAB PO SCH (21:56)
[2023-10-08] MEDS: DAPAGLIFLOZIN PROPANEDIOL 5 MG TABLET PO SCH (08:31)
[2023-10-08] MEDS: FENOFIBRATE 160 MG TAB PO SCH (08:31)
[2023-10-08] MEDS: FUROSEMIDE 10 MG/ML 4 ML VIAL IV SCH (08:31)
[2023-10-08] MEDS: CHOLECALCIFEROL 25 MCG (1000 IU) TABLET PO SCH (08:31)
[2023-10-08] MEDS ORDERED: ACETAMINOPHEN TAB 325 MG TAB PO PRN (08:39)
[2023-10-08] MEDS ORDERED: ONDANSETRON 4 MG/2 ML VIAL IVP PRN (08:39)
[2023-10-08] MEDS ORDERED: NALOXONE 0.4 MG/ML 1 ML VIAL IV PRN (08:39)
[2023-10-08] MEDS ORDERED: DEXTROSE 50% SYRINGE 50 ML IVP PRN ×2 (08:49)
--- NOTE | 2023-10-08 11:24 | P.CRDCN ---
History of Present Illness Consult date: 10/08/23 Chief complaint: Shortness of breath History of present illness: The patient is a pleasant 83-year-old gentleman with a past medical history sign ificant for permanent atrial fibrillation has been maintaining on oral anticoagulation as well as nonischemic cardiomyopathy with the last echo from 2021 showing an EF around 45 to 50% as well as permanent pacemaker and also diabetes and hypertension and dyslipidemia. We also to see the patient in a consultation for heart failure. The patient is known to have chronic kidney disease and has been seen by a wholesale diamond broker on a regular basis. Few months ago he was advised to stop taking the Lasix because of the kidney function. Since then he has been experiencing progressive shortness of breath with no pain in the chest and no lower extremities edema and no change in the weight and no dizziness or lightheadedness or any feeling of heart racing or fluttering or any presyncope or syncope. He presented to the emergency department because of shortness of breath last few weeks has progressed. He underwent further investigation including chest x-ray showing evidence of heart failure/pulmonary vascular congestion. NT proBNP came to elevated around 3000. The EKG showed underlying atrial fibrillation with ventricular paced rhythm. The blood work showed mildly abnormal creatinine but at baseline. The patient was started on Lasix IV and he was admitted to the hospital. He is feeling better. The shortness of breath has improved. He has no edema in the lower extremities. He underwent transesophageal echocardiogram and transthoracic echocardiogram in 2019 and that showed mildly impaired LV function and evidence of moderate mitral regurgitation. Heart catheterization in 2020 showed normal coronaries. The examination is remarkable for irregular rhythm with a systolic murmur at the apical area and right upper sternal border with clear breathing sounds bilaterally and no edema was noted in the lower extremities Assessment Heart failure exacerbation of unknown etiology at this point Atrial fibrillation with controlled heart rate. The patient does have permanent atrial fibrillation Renal failure which is chronic Permanent pacemaker Multiple comorbid conditions including diabetes and hypertension and dyslipidemia Plan Continue oral anticoagulation Continue IV diuretics for additional 24 hours. The patient is already feeling better and he is not in overt heart failure when he was seen and evaluated today Acute coronary syndrome was ruled out. Troponin is unremarkable Continue monitor the kidney function and electrolytes Obtain an echocardiogram with Doppler Further recommendation to follow the echocardiogram Past Medical History Past Medical History: Atrial Fibrillation, CVA/TIA, Diabetes Mellitus, Hyperlipidemia, Hypertension, Pneumonia, Prostate Disorder, Renal Disease Additional Past Medical History / Comment(s): leaking mitral valve,, cyst on kidney, "small brain aneurysm", TIA 06/2021 ago-no residual effects, "constant diarrhea", "feet always tingling" History of Any Multi-Drug Resistant Organisms: None Reported Past Surgical History: Appendectomy, Cholecystectomy, Heart Catheterization, Orthopedic Surgery, Pacemaker, Tonsillectomy Additional Past Surgical History / Comment(s): torn retina rt eye surgery x 2, massiel cataracts, colonoscopy. left shoulder rotator cuff Past Anesthesia/Blood Transfusion Reactions: Previous Problems w/ Anesthesia Additional Past Anesthesia/Blood Transfusion Reaction / Comment(s): diff waking up after colonoscopy-took long time Type of Cardiac Device: Permanent Pacemaker Device Placement Date:: 12/2019 Past Psychological History: No Psychological Hx Reported Smoking Status: Never smoker Past Alcohol Use History: None Reported Past Drug Use History: None Reported - Past Family History Daughter(s) Family Medical History: Cancer Brother(s) Family Medical History: Cancer Father Family Medical History: Cancer Medications and Allergies Home Medications Medication Instructions Recorded Confirmed Type Fenofibrate Nanocrystallized 145 mg PO DAILY 01/18/18 10/07/23 History [Tricor] Tamsulosin HCl [Flomax] 0.4 mg PO HS 01/18/18 10/07/23 History Apixaban [Eliquis] 5 mg PO BID 07/31/18 10/07/23 History Metoprolol Succinate (ER) [Toprol 25 mg PO BID 07/30/20 10/07/23 History XL] Sodium Bicarbonate Tab 650 mg PO HS 07/04/21 10/07/23 History Cholecalciferol [Vitamin D3 (25 50 mcg PO DAILY 10/07/23 10/07/23 History Mcg = 1000 Iu)] Dulaglutide [Trulicity] 4.5 mg SQ MO 10/07/23 10/07/23 History Empagliflozin [Jardiance] 10 mg PO DAILY 10/07/23 10/07/23 History Gabapentin [Neurontin] 400 mg PO QID 10/07/23 10/07/23 History Allergies Allergy/AdvReac Type Severity Reaction Status Date / Time morphine AdvReac Nausea & Verified 10/07/23 18:00 Vomiting Physical Exam Vitals: Vital Signs Temp Pulse Pulse Resp BP BP Pulse Ox 10/08/23 09:24 92 L 10/08/23 08:30 97.5 F L 84 17 122/64 98 10/08/23 04:00 89 16 113/56 96 10/07/23 21:43 97.9 F 58 L 16 161/80 95 10/07/23 20:00 95/70 10/07/23 19:25 109/68 10/07/23 18:27 87 19 10/07/23 18:00 90 22 10/07/23 17:32 82 16 10/07/23 17:00 75 10 L 97 10/07/23 16:00 74 12 98 10/07/23 15:43 97 10/07/23 15:35 98 F 71 22 138/88 98 Intake and Output 10/07/23 10/08/23 10/08/23 22:59 06:59 14:59 Intake Total 540 480 Output Total 900 Balance -900 540 480 Intake: Oral 540 480 Output: Urine 900 Other: Voiding Method Toilet Toilet Toilet # Voids 2 Weight 88.451 kg 83 kg Results 10/07/23 16:03 10/07/23 16:03 Cardiac Enzymes 10/07/23 10/07/23 10/07/23 Range/Units 16:03 16:03 20:55 AST 33 (17-59) U/L Troponin I <0.012 <0.012 (0.000-0.034) ng/mL 10/08/23 Range/Units 00:04 AST (17-59) U/L Troponin I 0.015 (0.000-0.034) ng/mL Coagulation 10/07/23 Range/Units 16:03 PT 13.1 H (10.0-12.5) sec APTT 29.0 (22.0-30.0) sec CBC 10/07/23 Range/Units 16:03 WBC 5.4 (3.8-10.6) k/uL RBC 5.26 (4.30-5.90) m/uL Hgb 16.3 (13.0-17.5) gm/dL Hct 51.5 (39.0-53.0) % Plt Count 146 L (150-450) k/uL Comprehensive Metabolic Panel 10/07/23 Range/Units 16:03 Sodium 139 (137-145) mmol/L Potassium 4.9 (3.5-5.1) mmol/L Chloride 110 H (98-107) mmol/L Carbon Dioxide 21 L (22-30) mmol/L BUN 22 H (9-20) mg/dL Creatinine 1.40 H (0.66-1.25) mg/dL Glucose 105 H (74-99) mg/dL Calcium 9.8 (8.4-10.2) mg/dL AST 33 (17-59) U/L ALT 16 (4-49) U/L Alkaline Phosphatase 35 L (38-126) U/L Total Protein 8.1 (6.3-8.2) g/dL Albumin 4.6 (3.5-5.0) g/dL Current Medications Generic Name Dose Route Start Last Admin Trade Name Freq PRN Reason Stop Dose Admin Acetaminophen 650 mg 10/08/23 08:39 Acetaminophen Tab 325 Mg Tab PO Q6HR PRN Mild Pain or Fever > 100.5 Apixaban 5 mg 10/07/23 21:00 10/08/23 08:31 Apixaban 5 Mg Tab PO 5 mg BID JOSE Administration Protocol Cholecalciferol 50 mcg 10/08/23 09:00 10/08/23 08:31 Cholecalciferol 25 Mcg (1000 Iu) Tablet PO 50 mcg DAILY JOSE Administration Dapagliflozin 5 mg 10/08/23 09:00 10/08/23 08:31 Dapagliflozin Propanediol 5 Mg Tablet PO 5 mg DAILY JOSE Administration Dextrose/Water 25 ml 10/08/23 08:49 Dextrose 50% Syringe 50 Ml IVP PER PROTOCOL PRN Hypoglycemia Protocol Dextrose/Water 50 ml 10/08/23 08:49 Dextrose 50% Syringe 50 Ml IVP PER PROTOCOL PRN Hypoglycemia Protocol Fenofibrate 160 mg 10/08/23 09:00 10/08/23 08:31 Fenofibrate 160 Mg Tab PO 160 mg DAILY JOSE Administration Furosemide 40 mg 10/08/23 09:00 10/08/23 08:31 Furosemide 10 Mg/Ml 4 Ml Vial IV 40 mg Q12HR JOSE Administration Gabapentin 400 mg 10/07/23 22:00 10/08/23 08:31 Gabapentin 400 Mg Cap PO 400 mg QID JOSE Administration Sodium Chloride 1,000 mls @ 20 mls/hr 10/07/23 15:49 10/07/23 17:43 Saline 0.9% IV 10/08/23 15:48 20 mls/hr .Q24H STA Administration Insulin Aspart 0 unit 10/08/23 12:30 Insulin Aspart (Novolog) 100 Unit/Ml Vial SQ ACHS [facility] Protocol Metoprolol Succinate 25 mg 10/07/23 21:00 10/08/23 08:31 Metoprolol Succinate (Er) 25 Mg Tab.Er.24h PO 25 mg BID JOSE Administration Naloxone HCl 0.2 mg 10/08/23 08:39 Naloxone 0.4 Mg/Ml 1 Ml Vial IV Q2M PRN Opioid Reversal Dulaglutide [ 4.5 mg 10/09/23 09:00 Trulicity] 4.5 Mg/0. SQ 5 Ml Each MO JOSE Ondansetron HCl 4 mg 10/08/23 08:39 Ondansetron 4 Mg/2 Ml Vial IVP Q8HR PRN Nausea And Vomiting Tamsulosin HCl 0.4 mg 10/07/23 21:00 10/07/23 21:56 Tamsulosin 0.4 Mg Cap.Er.24h PO 0.4 mg HS JOSE Administration Intake and Output 10/07/23 10/08/23 10/08/23 22:59 06:59 14:59 Intake Total 540 480 Output Total 900 Balance -900 540 480 Intake: Oral 540 480 Output: Urine 900 Other: Voiding Method Toilet Toilet Toilet # Voids 2 Weight 88.451 kg 83 kg 10/07/23 16:03 10/07/23 16:03
--- NOTE | 2023-10-08 11:38 | P.HPIM ---
History of Present Illness H&P Date: 10/08/23 Chief Complaint: Shortness of breath * 83-year-old gentleman with past medical history significant for chronic atrial fibrillation on anticoagulation with Eliquis, diabetes mellitus, history of hyperlipidemia, history of TIA, history of brain aneurysm, s/p pacemaker in place, presents to the emergency department with complaints of shortness of breath, cough, chills, sore throat. * Patient workup initiated at the time of presentation showed a CBC with a WBC of 5.4, hemoglobin 16.3, platelet count of 146. INR 1.2, D-dimer 0.35 * Serum chemistry showed sodium 139 potassium 4.9 chloride 110, dioxide 21 BUN 22 creatinine 1.40 glucose 105 lactate of 1.2 bilirubin 1.6 N-terminal proBNP 3330. * Chest x-ray obtained at the time of presentation showed cardiomegaly with pulmonary vascular congestion * Patient was given a dose of Keflex, 1 dose of Lasix and admitted to [facility] for further management consultation from cardiology REVIEW OF SYSTEMS: Shortness of breath, exertional dyspnea, cough CONSTITUTIONAL: No fever, no malaise, no fatigue. HEENT: No recent visual problems or hearing problems. Denied any sore throat. CARDIOVASCULAR: No chest pain, orthopnea, PND, no palpitations, no syncope. PULMONARY: Shortness of breath, exertional dyspnea, cough GASTROINTESTINAL: No diarrhea, no nausea, no vomiting, no abdominal pain. NEUROLOGICAL: No headaches, no weakness, no numbness. HEMATOLOGICAL: Denies any bleeding or petechiae. GENITOURINARY: Denies any burning micturition, frequency, or urgency. MUSCULOSKELETAL/RHEUMATOLOGICAL: Denies any joint pain, swelling, or any muscle pain. ENDOCRINE: Denies any polyuria or polydipsia. PHYSICAL EXAMINATION: GENERAL: The patient is alert and oriented x3, not in any acute distress. Well developed, well nourished. HEENT: Pupils are round and equally reacting to light. EOMI. CARDIOVASCULAR: S1 and S2 present. Decreased breath sounds PULMONARY: Chest is clear to auscultation, no wheezing or crackles. ABDOMEN: Soft, nontender, nondistended, normoactive bowel sounds. No palpable organomegaly. MUSCULOSKELETAL: No joint swelling or deformity. EXTREMITIES: No cyanosis, clubbing, or pedal edema. NEUROLOGICAL: Gross neurological examination did not reveal any focal deficits. SKIN: No rashes. Assessment and plan * Acute on chronic congestive heart failure systolic dysfunction * Nonischemic cardiomyopathy * Mellitus type II * Paroxysmal atrial fibrillation on Eliquis * Sick sinus syndrome s/p permanent pacemaker 2018 * Chronic kidney disease * Dyslipidemia * In regards to congestive heart failure consultation obtained from cardiology, CHF pathway initiated, intake and output and daily weights, continue IV Lasix echocardiogram ordered * In regards to atrial fibrillation, continue anticoagulation with Eliquis continue patient on metoprolol continue telemonitoring * In regards to history of diabetes mellitus, Accu-Cheks ACHS continue patient on correctional insulin, continue Farxiga, Past Medical History Past Medical History: Atrial Fibrillation, CVA/TIA, Diabetes Mellitus, Hyper lipidemia, Hypertension, Pneumonia, Prostate Disorder, Renal Disease Additional Past Medical History / Comment(s): leaking mitral valve,, cyst on kidney, "small brain aneurysm", TIA 06/2021 ago-no residual effects, "constant diarrhea", "feet always tingling" History of Any Multi-Drug Resistant Organisms: None Reported Past Surgical History: Appendectomy, Cholecystectomy, Heart Catheterization, Orthopedic Surgery, Pacemaker, Tonsillectomy Additional Past Surgical History / Comment(s): torn retina rt eye surgery x 2, massiel cataracts, colonoscopy. left shoulder rotator cuff Past Anesthesia/Blood Transfusion Reactions: Previous Problems w/ Anesthesia Additional Past Anesthesia/Blood Transfusion Reaction / Comment(s): diff waking up after colonoscopy-took long time Type of Cardiac Device: Permanent Pacemaker Device Placement Date:: 12/2019 Past Psychological History: No Psychological Hx Reported Smoking Status: Never smoker Past Alcohol Use History: None Reported Past Drug Use History: None Reported - Past Family History Daughter(s) Family Medical History: Cancer Brother(s) Family Medical History: Cancer Father Family Medical History: Cancer Medications and Allergies Home Medications Medication Instructions Recorded Confirmed Type Fenofibrate Nanocrystallized 145 mg PO DAILY 01/18/18 10/07/23 History [Tricor] Tamsulosin HCl [Flomax] 0.4 mg PO HS 01/18/18 10/07/23 History Apixaban [Eliquis] 5 mg PO BID 07/31/18 10/07/23 History Metoprolol Succinate (ER) [Toprol 25 mg PO BID 07/30/20 10/07/23 History XL] Sodium Bicarbonate Tab 650 mg PO HS 07/04/21 10/07/23 History Cholecalciferol [Vitamin D3 (25 50 mcg PO DAILY 10/07/23 10/07/23 History Mcg = 1000 Iu)] Dulaglutide [Trulicity] 4.5 mg SQ MO 10/07/23 10/07/23 History Empagliflozin [Jardiance] 10 mg PO DAILY 10/07/23 10/07/23 History Gabapentin [Neurontin] 400 mg PO QID 10/07/23 10/07/23 History Allergies Allergy/AdvReac Type Severity Reaction Status Date / Time morphine AdvReac Nausea & Verified 10/07/23 18:00 Vomiting Physical Exam Vitals: Vital Signs Temp Pulse Pulse Resp BP BP Pulse Ox 10/08/23 04:00 89 16 113/56 96 10/07/23 21:43 97.9 F 58 L 16 161/80 95 10/07/23 20:00 95/70 10/07/23 19:25 109/68 10/07/23 18:27 87 19 10/07/23 18:00 90 22 10/07/23 17:32 82 16 10/07/23 17:00 75 10 L 97 10/07/23 16:00 74 12 98 10/07/23 15:43 97 10/07/23 15:35 98 F 71 22 138/88 98 Intake and Output 10/07/23 10/08/23 10/08/23 22:59 06:59 14:59 Intake Total 540 Output Total 900 Balance -900 540 Intake: Oral 540 Output: Urine 900 Other: Voiding Method Toilet Toilet # Voids 2 Weight 88.451 kg 83 kg Results CBC & Chem 7: 10/07/23 16:03 10/07/23 16:03 Labs: Abnormal Lab Results - Last 24 Hours (Table) 10/07/23 10/07/23 10/07/23 Range/Units 16:03 16:03 16:03 Plt Count 146 L (150-450) k/uL PT 13.1 H (10.0-12.5) sec INR 1.2 H (<1.2) Chloride 110 H (98-107) mmol/L Carbon Dioxide 21 L (22-30) mmol/L BUN 22 H (9-20) mg/dL Creatinine 1.40 H (0.66-1.25) mg/dL Glucose 105 H (74-99) mg/dL Total Bilirubin 1.6 H (0.2-1.3) mg/dL Alkaline Phosphatase 35 L (38-126) U/L
[2023-10-08 11:58] LABS: Glucose,Whole Blood 141 mg/dL (70-110)
[2023-10-08] MEDS: INSULIN ASPART (NovoLOG) 100 UNIT/ML VIAL SQ SCH (11:59)
--- NOTE | 2023-10-08 15:50 | CA ---
Transthoracic Echo Report Name: Car Escamilla Age: 83 Gender: M : 1940 Exam Date: 10/08/2023 10:07 Exam Location: [facility] Ht (in): 72 Wt (lb): 195 Ordering Physician: Anselmo Lopez MD Attending/Referring Phys: Hardboard Grinder Michela Keller RDCS Procedure CPT: Indications: Heart failure Cardiac Hx: pacemaker Technical Quality: Good Contrast 1: Total Dose (mL): Contrast 2: Total Dose (mL): MEASUREMENTS (Male / Female) Normal Values 2D ECHO LV Diastolic Diameter PLAX 5.8 cm 4.2 - 5.9 / 3.9 - 5.3 cm LV Systolic Diameter PLAX 4.1 cm IVS Diastolic Thickness 1.2 cm 0.6 - 1.0 / 0.6 - 0.9 cm LVPW Diastolic Thickness 1.2 cm 0.6 - 1.0 / 0.6 - 0.9 cm LV Relative Wall Thickness 0.4 RV Internal Dim ED PLAX 3.8 cm LA Systolic Diameter LX 4.5 cm 3.0 - 4.0 / 2.7 - 3.8 cm LV Diastolic Volume MOD 4C 135.5 cm??? LV Systolic Volume MOD 4C 109.5 cm??? LV Ejection Fraction MOD 4C 19.2 % LV Cardiac Index MOD 4C 926.1 cm???/min???m??? LV Diastolic Length 4C 8.3 cm LV Systolic Length 4C 7.6 cm LV Diastolic Volume MOD 2C 180.0 cm??? LV Systolic Volume MOD 2C 120.1 cm??? LV Ejection Fraction MOD 2C 33.3 % LV Cardiac Index MOD 2C 2135.8 cm???/min???m??? LV Diastolic Length 2C 8.2 cm LV Systolic Length 2C 7.4 cm LA Volume 96.4 cm??? 18 - 58 / 22 - 52 cm??? LA Volume Index 45.2 cm???/m??? 16 - 28 cm???/m??? M-MODE Aortic Root Diameter MM 3.6 cm MV E Point Septal Separation 0.9 cm AV Cusp Separation MM 2.2 cm DOPPLER AV Peak Velocity 138.7 cm/s AV Peak Gradient 7.7 mmHg AI Peak Velocity 274.3 cm/s AI Peak Gradient 30.1 mmHg AI Pressure Half Time 883.5 ms MV Area PHT 3.0 cm??? MR Peak Velocity 450.4 cm/s MR Peak Gradient 81.1 mmHg MV Deceleration Time 226.4 ms TR Peak Velocity 249.4 cm/s TR Peak Gradient 24.9 mmHg Right Ventricular Systolic Press 28.7 mmHg FINDINGS Left Ventricle Left ventricular ejection fraction is estimated at 30 %. Mildly increased septal wall thickness. Left ventricular cavity size normal. Global left ventricular hypokinesis. Severely reduced global left ventricular systolic function. Right Ventricle Mild right ventricular dilatation. Right ventricular systolic pressure within normal limits. Right Atrium Normal right atrial size. Left Atrium Mildly increased left atrial diameter. Severely increased left atrial volume. Moderately increased left atrial area. Mitral Valve Structurally normal mitral valve. No evidence for mitral valve prolapse. No mitral stenosis. Mild to moderate mitral regurgitation. Aortic Valve Trileaflet aortic valve. Mild aortic regurgitation. No aortic stenosis. Tricuspid Valve Structurally normal tricuspid valve. Mild tricuspid regurgitation. Pulmonic Valve Structurally normal pulmonic valve. No pulmonic regurgitation. Pericardium No pericardial effusion. Aorta Normal size aortic root and proximal ascending aorta. CONCLUSIONS Dilated LV. Impaired LV systolic function with an EF around 30% [id number] mitral regurgitation secondary to cardiomyopathy. The mitral valve leaflets are intact Previewed by: Dr. Cheikh Dash MD (Electronically Signed) Final Date: 08 October 2023 15:49
[2023-10-08 16:42] LABS: Glucose,Whole Blood 132 mg/dL (70-110)
[2023-10-08 20:31] LABS: Glucose,Whole Blood 175 mg/dL (70-110)
[2023-10-09 06:23] LABS: Glucose,Whole Blood 135 mg/dL (70-110)
[2023-10-09] MEDS: Dulaglutide [Trulicity] 4.5 MG/0.5 ML Each SQ SCH (08:11)
[2023-10-09 09:22] LABS: Basophils % (A) 0 %; Eosinophils # (A) 0.2 k/uL (0-0.7); Eosinophils % (A) 4 %; HCT 50.5 % (39.0-53.0); HGB 17.2 gm/dL (13.0-17.5); Lymphocytes # (A) 1.4 k/uL (1.0-4.8); Lymphocytes % (A) 25 %; MCH 32.9 pg (25.0-35.0); MCHC 34.1 g/dL (31.0-37.0); MCV 96.3 fL (80.0-100.0); Mean Platelet Volume 8.7; Monocytes # (A) 0.5 k/uL (0-1.0); Monocytes % (A) 9 %; Neutrophils # (A) 3.3 k/uL (1.3-7.7); Neutrophils % (A) 59 %; Platelet Count 149 k/uL (150-450); RBC 5.25 m/uL (4.30-5.90); RDW 13.5 % (11.5-15.5); WBC 5.6 k/uL (3.8-10.6)
[2023-10-09 09:50] LABS: NT-Pro-B-Type Natriuretic Pept 1300 pg/mL
[2023-10-09 09:57] LABS: African American GFR (CKD) 34 (>60 ml/min/1.73 sqM); Anion Gap 11 mmol/L; Blood Urea Nitrogen 40 mg/dL (9-20); Calcium 9.9 mg/dL (8.4-10.2); Carbon Dioxide 24 mmol/L (22-30); Chloride 99 mmol/L (98-107); Glucose 264 mg/dL (74-99); Magnesium 1.9 mg/dL (1.6-2.3); Non-African American GFR(CKD) 29 (>60 ml/min/1.73 sqM); Potassium 4.1 mmol/L (3.5-5.1); Sodium 134 mmol/L (137-145)
[2023-10-09 11:30] LABS: Glucose,Whole Blood 148 mg/dL (70-110)
[2023-10-09] MEDS: hydrALAZINE HCL 10 MG TAB PO SCH (13:26)
--- NOTE | 2023-10-09 13:49 | P.PN ---
Subjective Progress Note Date: 10/09/23 Chief complaint: Shortness of breath History of present illness: The patient is a pleasant 83-year-old gentleman with a past medical history significant for permanent atrial fibrillation has been maintaining on oral anticoagulation as well as nonischemic cardiomyopathy with the last echo from 2021 showing an EF around 45 to 50% as well as permanent pacemaker and also diabetes and hypertension and dyslipidemia. We also to see the patient in a consultation for heart failure. The patient is known to have chronic kidney disease and has been seen by a sugar trucker on a regular basis. Few months ago he was advised to stop taking the Lasix because of the kidney function. Since then he has been experiencing progressive shortness of breath with no pain in the chest and no lower extremities edema and no change in the weight and no dizziness or lightheadedness or any feeling of heart racing or fluttering or any presyncope or syncope. He presented to the emergency department because of shortness of breath last few weeks has progressed. He underwent further investigation including chest x-ray showing evidence of heart failure/pulmonary vascular congestion. NT proBNP came to elevated around 3000. The EKG showed underlying atrial fibrillation with ventricular paced rhythm. The blood work showed mildly abnormal creatinine but at baseline. The patient was started on Lasix IV and he was admitted to the hospital. He is feeling better. The shortness of breath has improved. He has no edema in the lower extremities. He underwent transesophageal echocardiogram and transthoracic echocardiogram in 2019 and that showed mildly impaired LV function and evidence of moderate mitral regurgitation. Heart catheterization in 2020 showed normal coronaries. The examination is remarkable for irregular rhythm with a systolic murmur at the apical area and right upper sternal border with clear breathing sounds bilaterally and no edema was noted in the lower extremities 10/08 Patient is seen today in follow-up. Patient states that he always has dyspnea on exertion when he is working outside. He feels tired now. No chest pain no shortness of breath. He does not have much appetite according to his . On telemetry, patient is having bigeminy trigeminy. Heart rate is between 50 and 71, blood pressure 102/51, pulse ox 96% on room air. Repeat blood work reveals sodium 134, potassium 4.1, BUN 40 creatinine 2.07. proBNP is 1300. Magnesium 1.9. Patient has been on IV Lasix 40 mg every 12 hours. Patient's weight is down 2 kg. Echocardiogram reveals EF of 30%. Dilated LV. Mild to moderate mitral regurgitation secondary to cardiomyopathy. Mitral valve leaflets are intact. On Physical Examination Gen: This is an 83-year-old male in no acute distress HEENT: Head is atraumatic, normocephalic. Pupils equal, round. Sclerae is anicteric. NECK: Supple. No JVD. No lymphadenopathy. No thyromegaly. LUNGS: Clear to auscultation. No wheezes or rhonchi. No intercostal retractions. HEART: Irregular rate and rhythm. Systolic murmur at the apical area and right upper sternal border. ABDOMEN: Soft. Bowel sounds are present. No masses. No tenderness. EXTREMITIES: No pedal edema. No calf tenderness. NEUROLOGICAL: Patient is awake, alert and oriented x3. Cranial nerves 2 through 12 are grossly intact. Assessment Systolic heart failure exacerbation of unknown etiology at this point Atrial fibrillation with controlled heart rate. The patient does have permanent atrial fibrillation Renal failure which is chronic Permanent pacemaker Multiple comorbid conditions including diabetes and hypertension and dyslipidemia Plan Continue oral anticoagulation Discontinue IV diuretics and transition to oral 40 mg daily Start patient on hydralazine 10 mg 3 times daily Acute coronary syndrome was ruled out. Troponin is unremarkable Continue monitor the kidney function and electrolytes May consider upgrade to biventricular device Further recommendation to follow Nurse practitioner note has been reviewed, I agree with documented findings and plan of care. Patient was seen and examined. Objective - Vital Signs Vital signs: Vital Signs Temp 97.8 F 10/09/23 08:02 Pulse 50 L 10/09/23 08:02 Resp 16 10/09/23 08:02 BP 110/66 10/09/23 08:02 Pulse Ox 95 10/09/23 08:02 FiO2 Intake & Output 10/08/23 10/09/23 10/09/23 18:59 06:59 18:59 Intake Total 838 360 Output Total 800 400 Balance 38 -400 360 Weight 81 kg Intake: Oral 838 360 Output: Urine 800 400 Other: Voiding Method Toilet Toilet Toilet # Voids 1 0 # Bowel Movements 0 - Labs CBC & Chem 7: 10/09/23 08:39 10/09/23 08:39 Labs: Abnormal Lab Results - Last 24 Hours (Table) 10/08/23 10/08/23 10/08/23 Range/Units 11:57 16:41 20:29 Plt Count (150-450) k/uL Sodium (137-145) mmol/L BUN (9-20) mg/dL Creatinine (0.66-1.25) mg/dL Glucose (74-99) mg/dL POC Glucose (mg/dL) 141 H 132 H 175 H (70-110) mg/dL 10/09/23 10/09/23 10/09/23 Range/Units 06:21 08:39 08:39 Plt Count 149 L (150-450) k/uL Sodium 134 L (137-145) mmol/L BUN 40 H (9-20) mg/dL Creatinine 2.07 H (0.66-1.25) mg/dL Glucose 264 H (74-99) mg/dL POC Glucose (mg/dL) 135 H (70-110) mg/dL Microbiology - Last 24 Hours (Table) 10/07/23 16:44 Blood Culture - Preliminary Blood 10/07/23 16:20 Blood Culture - Preliminary Blood
[2023-10-09 15:54] VITALS: BMI 24.2
[2023-10-09 16:44] LABS: Glucose,Whole Blood 111 mg/dL (70-110)
--- NOTE | 2023-10-09 20:33 | P.PN ---
Subjective Progress Note Date: 10/09/23 Chief Complaint: Shortness of breath * 83-year-old gentleman with past medical history significant for chronic atrial fibrillation on anticoagulation with Eliquis, diabetes mellitus, history of hyperlipidemia, history of TIA, history of brain aneurysm, s/p pacemaker in place, presents to the emergency department with complaints of shortness of breath, cough, chills, sore throat. * Patient workup initiated at the time of presentation showed a CBC with a WBC of 5.4, hemoglobin 16.3, platelet count of 146. INR 1.2, D-dimer 0.35 * Serum chemistry showed sodium 139 potassium 4.9 chloride 110, dioxide 21 BUN 22 creatinine 1.40 glucose 105 lactate of 1.2 bilirubin 1.6 N-terminal proBNP 3330. * Chest x-ray obtained at the time of presentation showed cardiomegaly with pulmonary vascular congestion * Patient was given a dose of Keflex, 1 dose of Lasix and admitted to medical floor for further management consultation from cardiology 10/09/2023 Patient was evaluated today on the medical floor resting in bed. He is currently on room air he is reporting continued shortness of breath worsening with exertion. He was given IV Lasix yesterday diuresed well. He is currently on room air and has no signs of lower extremity edema. Creatinine worsened is currently 2.07 sodium of 134. Lasix has been discontinued at this time. Echocardiogram reveals an EF of 30% dilated left ventricle with mild to moderate MR secondary to the cardiomyopathy. Review of Systems Constitutional: Denied any fatigue denied any fever. Cardio vascular: denied any chest pain, palpitations Gastrointestinal: denied any nausea, vomiting, diarrhea Pulmonary: Reports exertional shortness of breath no cough Neurologic denied any new focal deficits All inpatient medications were reviewed and appropriate changes in these medications as dictated in the interval history and assessment and plan. PHYSICAL EXAMINATION: GENERAL: The patient is alert and oriented x3, not in any acute distress. Well developed, well nourished. HEENT: Pupils are round and equally reacting to light. EOMI. CARDIOVASCULAR: S1 and S2 present. Decreased breath sounds PULMONARY: Chest is clear to auscultation, no wheezing or crackles. ABDOMEN: Soft, nontender, nondistended, normoactive bowel sounds. No palpable organomegaly. MUSCULOSKELETAL: No joint swelling or deformity. EXTREMITIES: No cyanosis, clubbing, or pedal edema. NEUROLOGICAL: Gross neurological examination did not reveal any focal deficits. SKIN: No rashes. Assessment and plan -Acute on chronic congestive heart failure systolic dysfunction -Nonischemic cardiomyopathy with worsening EF now 30% from 45-50% -Diabetes Mellitus type II -Paroxysmal atrial fibrillation on Eliquis -Sick sinus syndrome s/p permanent pacemaker 2019 -Chronic kidney disease, Acute on chronic -Dyslipidemia GI prophylaxis DVT prophylaxis on Eliquis Full Code Plan IV lasix has been discontinued due to the increased creatinine. Repeat labs in the AM. Cardiology following with further recommendations regarding the cardiomyopathy. Hydralazine added for improved blood pressure control Continue accuchecks ACHS and sliding scale insulin, patient is also continued on farxiga. Cardiology following. The impression and plan of care has been dictated by Lilli Chen, Nurse Practitioner as directed. Dr. Jacqueline MD I have performed a history and physical examination and medical decision making of this patient, discussed the same with the dictator, and agree with the dictators assessment and plan as written, documented as a scribe. Based on total visit time, I have performed more than 50% of this visit. Objective - Vital Signs Vital signs: Vital Signs Temp 97.8 F 10/09/23 08:02 Pulse 71 10/09/23 11:29 Resp 16 10/09/23 11:29 BP 102/51 10/09/23 11:29 Pulse Ox 96 10/09/23 11:29 FiO2 Intake & Output 10/08/23 10/09/23 10/09/23 18:59 06:59 18:59 Intake Total 838 360 Output Total 800 400 Balance 38 -400 360 Weight 81 kg Intake: Oral 838 360 Output: Urine 800 400 Other: Voiding Method Toilet Toilet Toilet # Voids 1 0 # Bowel Movements 0 - Labs CBC & Chem 7: 10/09/23 08:39 10/09/23 08:39 Labs: Abnormal Lab Results - Last 24 Hours (Table) 10/08/23 10/08/23 10/09/23 Range/Units 16:41 20:29 06:21 Plt Count (150-450) k/uL Sodium (137-145) mmol/L BUN (9-20) mg/dL Creatinine (0.66-1.25) mg/dL Glucose (74-99) mg/dL POC Glucose (mg/dL) 132 H 175 H 135 H (70-110) mg/dL 10/09/23 10/09/23 10/09/23 Range/Units 08:39 08:39 11:28 Plt Count 149 L (150-450) k/uL Sodium 134 L (137-145) mmol/L BUN 40 H (9-20) mg/dL Creatinine 2.07 H (0.66-1.25) mg/dL Glucose 264 H (74-99) mg/dL POC Glucose (mg/dL) 148 H (70-110) mg/dL Microbiology - Last 24 Hours (Table) 10/07/23 16:44 Blood Culture - Preliminary Blood 10/07/23 16:20 Blood Culture - Preliminary Blood Assessment and Plan Time with Patient: Less than 30
[2023-10-09 20:43] LABS: Glucose,Whole Blood 178 mg/dL (70-110)
[2023-10-10 06:04] LABS: Glucose,Whole Blood 108 mg/dL (70-110)
[2023-10-10] MEDS: FAMOTIDINE 20 MG TAB PO SCH (09:22)
[2023-10-10 10:50] LABS: African American GFR (CKD) 30 (>60 ml/min/1.73 sqM); Anion Gap 13 mmol/L; Blood Urea Nitrogen 49 mg/dL (9-20); Calcium 9.9 mg/dL (8.4-10.2); Carbon Dioxide 24 mmol/L (22-30); Chloride 98 mmol/L (98-107); Glucose 206 mg/dL (74-99); Magnesium 2.1 mg/dL (1.6-2.3); Non-African American GFR(CKD) 26 (>60 ml/min/1.73 sqM); Potassium 4.4 mmol/L (3.5-5.1); Sodium 135 mmol/L (137-145)
[2023-10-10 11:42] LABS: Glucose,Whole Blood 133 mg/dL (70-110)
--- NOTE | 2023-10-10 13:33 | P.PN ---
Subjective Progress Note Date: 10/10/23 Chief complaint: Shortness of breath History of present illness: The patient is a pleasant 83-year-old gentleman with a past medical history significant for permanent atrial fibrillation has been maintaining on oral anticoagulation as well as nonischemic cardiomyopathy with the last echo from 2021 showing an EF around 45 to 50% as well as permanent pacemaker and also diabetes and hypertension and dyslipidemia. We also to see the patient in a consultation for heart failure. The patient is known to have chronic kidney disease and has been seen by a business process associate on a regular basis. Few months ago he was advised to stop taking the Lasix because of the kidney function. Since then he has been experiencing progressive shortness of breath with no pain in the chest and no lower extremities edema and no change in the weight and no dizziness or lightheadedness or any feeling of heart racing or fluttering or any presyncope or syncope. He presented to the emergency department because of shortness of breath last few weeks has progressed. He underwent further investigation including chest x-ray showing evidence of heart failure/pulmonary vascular congestion. NT proBNP came to elevated around 3000. The EKG showed underlying atrial fibrillation with ventricular paced rhythm. The blood work showed mildly abnormal creatinine but at baseline. The patient was started on Lasix IV and he was admitted to the hospital. He is feeling better. The shortness of breath has improved. He has no edema in the lower extremities. He underwent transesophageal echocardiogram and transthoracic echocardiogram in 2019 and that showed mildly impaired LV function and evidence of moderate mitral regurgitation. Heart catheterization in 2020 showed normal coronaries. The examination is remarkable for irregular rhythm with a systolic murmur at the apical area and right upper sternal border with clear breathing sounds bilaterally and no edema was noted in the lower extremities 10/08 Patient is seen today in follow-up. Patient states that he always has dyspnea on exertion when he is working outside. He feels tired now. No chest pain no shortness of breath. He does not have much appetite according to his . On telemetry, patient is having bigeminy trigeminy. Heart rate is between 50 and 71, blood pressure 102/51, pulse ox 96% on room air. Repeat blood work reveals sodium 134, potassium 4.1, BUN 40 creatinine 2.07. proBNP is 1300. Magnesium 1.9. Patient has been on IV Lasix 40 mg every 12 hours. Patient's weight is down 2 kg. Echocardiogram reveals EF of 30%. Dilated LV. Mild to moderate mitral regurgitation secondary to cardiomyopathy. Mitral valve leaflets are intact. On 10/09 Patient is seen today in follow-up. Patient has had an increase in creatinine 2.3, BUN 49, sodium 135, potassium 4.4. Heart rate is running between 55 and 71, blood pressure 103/57, pulse ox 95% on room air. Oral Lasix has been discontinued. Physical Examination Gen: This is an 83-year-old male in no acute distress HEENT: Head is atraumatic, normocephalic. Pupils equal, round. Sclerae is anicteric. NECK: Supple. No JVD. No lymphadenopathy. No thyromegaly. LUNGS: Clear to auscultation. No wheezes or rhonchi. No intercostal retracti ons. HEART: Irregular rate and rhythm. Systolic murmur at the apical area and right upper sternal border. ABDOMEN: Soft. Bowel sounds are present. No masses. No tenderness. EXTREMITIES: No pedal edema. No calf tenderness. NEUROLOGICAL: Patient is awake, alert and oriented x3. Cranial nerves 2 through 12 are grossly intact. Assessment Systolic heart failure exacerbation of unknown etiology at this point Atrial fibrillation with controlled heart rate. The patient does have permanent atrial fibrillation Renal failure which is chronic Permanent pacemaker Multiple comorbid conditions including diabetes and hypertension and dyslipidemia Plan Continue oral anticoagulation Continue patient on hydralazine 10 mg 3 times daily Monitor renal function May consider upgrade to biventricular device in the future Further recommendation to follow Nurse practitioner note has been reviewed, I agree with documented findings and plan of care. Patient was seen and examined. Objective - Vital Signs Vital signs: Vital Signs Temp 97.2 F L 10/10/23 09:17 Pulse 71 10/10/23 11:12 Resp 17 10/10/23 11:12 BP 103/57 10/10/23 11:12 Pulse Ox 95 10/10/23 11:12 FiO2 Intake & Output 10/09/23 10/10/23 10/10/23 18:59 06:59 18:59 Intake Total 1080 240 358 Output Total 1600 Balance -520 240 358 Weight 81 kg 82.4 kg Intake: Oral 1080 240 358 Output: Urine 1600 Other: Voiding Method Toilet Toilet Toilet # Voids 0 1 # Bowel Movements 0 - Labs CBC & Chem 7: 04/22/24 08:39 10/10/23 08:58 Labs: Abnormal Lab Results - Last 24 Hours (Table) 10/09/23 10/09/23 10/09/23 Range/Units 08:39 16:42 20:42 Sodium (137-145) mmol/L BUN (9-20) mg/dL Creatinine (0.66-1.25) mg/dL Glucose (74-99) mg/dL POC Glucose (mg/dL) 111 H 178 H (70-110) mg/dL Hemoglobin A1c 7.9 H (<=6.0) % 10/10/23 10/10/23 Range/Units 08:58 11:41 Sodium 135 L (137-145) mmol/L BUN 49 H (9-20) mg/dL Creatinine 2.30 H (0.66-1.25) mg/dL Glucose 206 H (74-99) mg/dL POC Glucose (mg/dL) 133 H (70-110) mg/dL Hemoglobin A1c (<=6.0) % Microbiology - Last 24 Hours (Table) 10/07/23 16:44 Blood Culture - Preliminary Blood 10/07/23 16:20 Blood Culture - Preliminary Blood
[2023-10-10 16:42] LABS: Glucose,Whole Blood 165 mg/dL (70-110)
[2023-10-10] MEDS: APIXABAN 2.5 MG TABLET PO SCH (19:53)
[2023-10-10 20:49] LABS: Glucose,Whole Blood 144 mg/dL (70-110)
--- NOTE | 2023-10-10 21:19 | P.PN ---
Subjective Progress Note Date: 10/10/23 Chief Complaint: Shortness of breath * 83-year-old gentleman with past medical history significant for chronic atrial fibrillation on anticoagulation with Eliquis, diabetes mellitus, history of hyperlipidemia, history of TIA, history of brain aneurysm, s/p pacemaker in place, presents to the emergency department with complaints of shortness of breath, cough, chills, sore throat. * Patient workup initiated at the time of presentation showed a CBC with a WBC of 5.4, hemoglobin 16.3, platelet count of 146. INR 1.2, D-dimer 0.35 * Serum chemistry showed sodium 139 potassium 4.9 chloride 110, dioxide 21 BUN 22 creatinine 1.40 glucose 105 lactate of 1.2 bilirubin 1.6 N-terminal proBNP 3330. * Chest x-ray obtained at the time of presentation showed cardiomegaly with pulmonary vascular congestion * Patient was given a dose of Keflex, 1 dose of Lasix and admitted to medical floor for further management consultation from cardiology 10/09/2023 Patient was evaluated today on the medical floor resting in bed. He is currently on room air he is reporting continued shortness of breath worsening with exertion. He was given IV Lasix yesterday diuresed well. He is currently on room air and has no signs of lower extremity edema. Creatinine worsened is currently 2.07 sodium of 134. Lasix has been discontinued at this time. Echocardiogram reveals an EF of 30% dilated left ventricle with mild to moderate MR secondary to the cardiomyopathy. 10/10/2023 Patient is evaluated today in follow up. Continues to report shortness of breath while up ambulating. Remains off lasix at this time. Creatinine 2.30. Nephrology consulted. Review of Systems Constitutional: Denied any fatigue denied any fever. Cardio vascular: denied any chest pain, palpitations Gastrointestinal: denied any nausea, vomiting, diarrhea Pulmonary: Reports exertional shortness of breath no cough Neurologic denied any new focal deficits All inpatient medications were reviewed and appropriate changes in these medications as dictated in the interval history and assessment and plan. PHYSICAL EXAMINATION: GENERAL: The patient is alert and oriented x3, not in any acute distress. Well developed, well nourished. HEENT: Pupils are round and equally reacting to light. EOMI. CARDIOVASCULAR: S1 and S2 present. Decreased breath sounds PULMONARY: Chest is clear to auscultation, no wheezing or crackles. ABDOMEN: Soft, nontender, nondistended, normoactive bowel sounds. No palpable organomegaly. MUSCULOSKELETAL: No joint swelling or deformity. EXTREMITIES: No cyanosis, clubbing, or pedal edema. NEUROLOGICAL: Gross neurological examination did not reveal any focal deficits. SKIN: No rashes. Assessment and plan -Acute on chronic congestive heart failure systolic dysfunction -Nonischemic cardiomyopathy with worsening EF now 30% from 45-50% -Diabetes Mellitus type II -Paroxysmal atrial fibrillation on Eliquis -Sick sinus syndrome s/p permanent pacemaker 2019 -Chronic kidney disease, Acute on chronic -Dyslipidemia GI prophylaxis DVT prophylaxis on Eliquis Full Code Plan IV lasix has been discontinued due to the increased creatinine. Repeat labs in the AM. Cardiology following with further recommendations regarding the cardiomyopathy. Hydralazine added for improved blood pressure control Continue accuchecks ACHS and sliding scale insulin, patient is also continued on farxiga. Cardiology following. Nephrology consulted Check oxygen while up ambulating. The impression and plan of care has been dictated by Lilli Chen, Nurse Practitioner as directed. Dr. Jacqueline MD I have performed a history and physical examination and medical decision making of this patient, discussed the same with the dictator, and agree with the dictators assessment and plan as written, documented as a scribe. Based on total visit time, I have performed more than 50% of this visit. Objective - Vital Signs Vital signs: Vital Signs Temp 97.2 F L 10/10/23 09:17 Pulse 71 10/10/23 11:12 Resp 17 10/10/23 11:12 BP 103/57 10/10/23 11:12 Pulse Ox 95 10/10/23 11:12 FiO2 Intake & Output 10/09/23 10/10/23 10/10/23 18:59 06:59 18:59 Intake Total 1080 240 558 Output Total 1600 Balance -520 240 558 Weight 81 kg 82.4 kg Intake: Oral 1080 240 558 Output: Urine 1600 Other: Voiding Method Toilet Toilet Toilet # Voids 0 1 # Bowel Movements 0 - Labs CBC & Chem 7: 10/09/23 08:39 10/10/23 08:58 Labs: Abnormal Lab Results - Last 24 Hours (Table) 10/09/23 10/09/23 10/09/23 Range/Units 08:39 16:42 20:42 Sodium (137-145) mmol/L BUN (9-20) mg/dL Creatinine (0.66-1.25) mg/dL Glucose (74-99) mg/dL POC Glucose (mg/dL) 111 H 178 H (70-110) mg/dL Hemoglobin A1c 7.9 H (<=6.0) % 10/10/23 10/10/23 Range/Units 08:58 11:41 Sodium 135 L (137-145) mmol/L BUN 49 H (9-20) mg/dL Creatinine 2.30 H (0.66-1.25) mg/dL Glucose 206 H (74-99) mg/dL POC Glucose (mg/dL) 133 H (70-110) mg/dL Hemoglobin A1c (<=6.0) % Microbiology - Last 24 Hours (Table) 10/07/23 16:44 Blood Culture - Preliminary Blood 10/07/23 16:20 Blood Culture - Preliminary Blood Assessment and Plan Time with Patient: Less than 30
[2023-10-11 05:23] VITALS: RESP 16
[2023-10-11 05:54] LABS: Glucose,Whole Blood 126 mg/dL (70-110)
[2023-10-11 08:49] LABS: African American GFR (CKD) 31 (>60 ml/min/1.73 sqM); Anion Gap 11 mmol/L; Blood Urea Nitrogen 49 mg/dL (9-20); Calcium 10.2 mg/dL (8.4-10.2); Carbon Dioxide 26 mmol/L (22-30); Chloride 100 mmol/L (98-107); Glucose 166 mg/dL (74-99); Non-African American GFR(CKD) 27 (>60 ml/min/1.73 sqM); Potassium 4.1 mmol/L (3.5-5.1); Sodium 137 mmol/L (137-145)
[2023-10-11 08:53] VITALS: TEMP 97.8
--- NOTE | 2023-10-11 11:15 | P.NPCON ---
History of Present Illness - Reason for Consult acute renal failure, chronic renal failure - History of Present Illness Reason for consultation: Acute kidney injury on chronic kidney disease History of present illness: Patient is 83-year-old male seen in renal consultation for acute kidney injury on chronic kidney disease. Patient has chronic kidney disease stage IIIb with baseline creatinine 1.7-2 due to nephrosclerosis. Patient came to the hospital due to worsening shortness of breath. Patient states this was progressively getting worse over the course of few days. Patient states he came to the point where he was sitting on a recliner and gasping for air and his brought him to the hospital. Patient received IV diuretics this admission. Patient is maintained on Farxiga. He also takes this outpatient. Creatinine peaked at 2.3 this admission and is stable at 2.2 today. He denies any chest pain or shortness of breath at this time. He is currently on room air. Denies use of nonsteroidals. Patient does have history of diabetes. Denies history of coronary artery disease. Patient has history of A-fib and also has a pacemaker. Patient's ejection fraction is noted to be 30% with mild to moderate mitral regurgitation. He denies gross hematuria or dysuria. No vomiting or diarrhea. Vital signs are stable. General: No acute distress. HEENT: Head exam is unremarkable. LUNGS: No audible rhonchi or wheezes. HEART: Rate and Rhythm are regular. ABDOMEN: Nontender. EXTREMITITES: No edema. Past Medical History Past Medical History: Atrial Fibrillation, CVA/TIA, Diabetes Mellitus, Hyperlipidemia, Hypertension, Pneumonia, Prostate Disorder, Renal Disease Additional Past Medical History / Comment(s): leaking mitral valve,, cyst on kidney, "small brain aneurysm", TIA 06/2021 ago-no residual effects, "constant diarrhea", "feet always tingling" History of Any Multi-Drug Resistant Organisms: None Reported Past Surgical History: Appendectomy, Cholecystectomy, Heart Catheterization, Orthopedic Surgery, Pacemaker, Tonsillectomy Additional Past Surgical History / Comment(s): torn retina rt eye surgery x 2, massiel cataracts, colonoscopy. left shoulder rotator cuff Past Anesthesia/Blood Transfusion Reactions: Previous Problems w/ Anesthesia Additional Past Anesthesia/Blood Transfusion Reaction / Comment(s): diff waking up after colonoscopy-took long time Type of Cardiac Device: Permanent Pacemaker Device Placement Date:: 12/2019 Past Psychological History: No Psychological Hx Reported Smoking Status: Never smoker Past Alcohol Use History: None Reported Past Drug Use History: None Reported - Past Family History Daughter(s) Family Medical History: Cancer Brother(s) Family Medical History: Cancer Father Family Medical History: Cancer Medications and Allergies Home Medications Medication Instructions Recorded Confirmed Type Fenofibrate Nanocrystallized 145 mg PO DAILY 01/18/18 10/07/23 History [Tricor] Tamsulosin HCl [Flomax] 0.4 mg PO HS 01/18/18 10/07/23 History Apixaban [Eliquis] 5 mg PO BID 07/31/18 10/07/23 History Metoprolol Succinate (ER) [Toprol 25 mg PO BID 07/30/20 10/07/23 History XL] Sodium Bicarbonate Tab 650 mg PO HS 07/04/21 10/07/23 History Cholecalciferol [Vitamin D3 (25 50 mcg PO DAILY 10/07/23 10/07/23 History Mcg = 1000 Iu)] Dulaglutide [Trulicity] 4.5 mg SQ MO 10/07/23 10/07/23 History Empagliflozin [Jardiance] 10 mg PO DAILY 10/07/23 10/07/23 History Gabapentin [Neurontin] 400 mg PO QID 10/07/23 10/07/23 History Allergies Allergy/AdvReac Type Severity Reaction Status Date / Time morphine AdvReac Nausea & Verified 10/07/23 18:00 Vomiting Physical Exam Vitals: Vital Signs Temp Pulse Resp BP Pulse Ox 10/11/23 08:17 97.8 F 87 16 108/71 94 L 10/11/23 08:11 93 L 10/11/23 04:00 98 F 57 L 16 112/71 95 10/11/23 00:21 98 F 60 17 121/71 96 10/10/23 20:15 57 L 16 119/67 95 10/10/23 15:18 69 17 106/63 94 L 10/10/23 11:12 71 17 103/57 95 Intake and Output 10/10/23 10/11/23 10/11/23 22:59 06:59 14:59 Intake Total 118 240 Output Total 300 Balance 118 -300 240 Intake: Oral 118 240 Output: Urine 300 Other: Voiding Method Toilet Toilet Toilet # Voids 1 # Bowel Movements 1 Weight 82.7 kg Results - Lab Results Most recent lab results Calcium 10.2 mg/dL (8.4-10.2) 10/11/23 07:49 Magnesium 2.1 mg/dL (1.6-2.3) 10/10/23 08:58 10/09/23 08:39 10/11/23 07:49 Assessment and Plan Plan: Assessment: 1. Acute kidney injury secondary to ATN secondary to cardiorenal syndrome. Creatinine peaked at 2.3 this admission and is stable at 2.2 today. Renal ultrasound from June 2023 showed normal-sized kidneys with kidney cyst. No hydronephrosis was noted. 2. Chronic kidney disease stage IIIb with baseline creatinine 1.7-2 secondary to nephrosclerosis. 3. Acute on chronic systolic CHF ejection fraction of 30% with mild to moderate mitral regurgitation. 4. Fluid overload. Improved with diuresis. 5. Diabetes mellitus. Plan: Add Lasix 20 mg orally once daily. Maintain Farxiga. Advised patient to maintain low-salt diet and fluid restriction of less than 50 ounces per day upon discharge. Patient also advised to monitor his weight closely at home and to notify physician if develops edema or gains more than 3 pounds in 1 week duration. Avoid nephrotoxins. Follow-up outpatient 1 week postdischarge. Repeat BMP and magnesium level 2 to 3 days postdischarge. Thank you for the consultation. I will continue to follow the patient with you during his hospital stay.
[2023-10-11 11:44] LABS: Glucose,Whole Blood 234 mg/dL (70-110)
--- NOTE | 2023-10-11 14:36 | P.PN ---
Subjective Progress Note Date: 10/11/23 Chief complaint: Shortness of breath History of present illness: The patient is a pleasant 83-year-old gentleman with a past medical history significant for permanent atrial fibrillation has been maintaining on oral anticoagulation as well as nonischemic cardiomyopathy with the last echo from 2021 showing an EF around 45 to 50% as well as permanent pacemaker and also diabetes and hypertension and dyslipidemia. We also to see the patient in a consultation for heart failure. The patient is known to have chronic kidney disease and has been seen by a emergency vehicle technician on a regular basis. Few months ago he was advised to stop taking the Lasix because of the kidney function. Since then he has been experiencing progressive shortness of breath with no pain in the chest and no lower extremities edema and no change in the weight and no dizziness or lightheadedness or any feeling of heart racing or fluttering or any presyncope or syncope. He presented to the emergency department because of shortness of breath last few weeks has progressed. He underwent further investigation including chest x-ray showing evidence of heart failure/pulmonary vascular congestion. NT proBNP came to elevated around 3000. The EKG showed underlying atrial fibrillation with ventricular paced rhythm. The blood work showed mildly abnormal creatinine but at baseline. The patient was started on Lasix IV and he was admitted to the hospital. He is feeling better. The shortness of breath has improved. He has no edema in the lower extremities. He underwent transesophageal echocardiogram and transthoracic echocardiogram in 2019 and that showed mildly impaired LV function and evidence of moderate mitral regurgitation. Heart catheterization in 2020 showed normal coronaries. The examination is remarkable for irregular rhythm with a systolic murmur at the apical area and right upper sternal border with clear breathing sounds bilaterally and no edema was noted in the lower extremities 10/08 Patient is seen today in follow-up. Patient states that he always has dyspnea on exertion when he is working outside. He feels tired now. No chest pain no shortness of breath. He does not have much appetite according to his . On telemetry, patient is having bigeminy trigeminy. Heart rate is between 50 and 71, blood pressure 102/51, pulse ox 96% on room air. Repeat blood work reveals sodium 134, potassium 4.1, BUN 40 creatinine 2.07. proBNP is 1300. Magnesium 1.9. Patient has been on IV Lasix 40 mg every 12 hours. Patient's weight is down 2 kg. Echocardiogram reveals EF of 30%. Dilated LV. Mild to moderate mitral regurgitation secondary to cardiomyopathy. Mitral valve leaflets are intact. On 10/09 Patient is seen today in follow-up. Patient has had an increase in creatinine 2.3, BUN 49, sodium 135, potassium 4.4. Heart rate is running between 55 and 71, blood pressure 103/57, pulse ox 95% on room air. Oral Lasix has been discontinued. 10/10 Patient has just ambulated in the hallway and doing well with that maintained pulse ox of 95%. He denies having any chest pain, lightheadedness or dizziness. He thinks his breathing is back to his baseline. No lower extremity edema. He has been switched to oral Lasix 20 mg daily by nephrology. Heart rate is 71, blood pressure 107/71, pulse ox 95% on room air. Potassium is 3.1, BUN 49 creatinine 2.2. Physical Examination Gen: This is an 83-year-old male in no acute distress HEENT: Head is atraumatic, normocephalic. Pupils equal, round. Sclerae is anicteric. NECK: Supple. No JVD. No lymphadenopathy. No thyromegaly. LUNGS: Clear to auscultation. No wheezes or rhonchi. No intercostal retractions. HEART: Irregular rate and rhythm. Systolic murmur at the apical area and right upper sternal border. ABDOMEN: Soft. Bowel sounds are present. No masses. No tenderness. EXTREMITIES: No pedal edema. No calf tenderness. NEUROLOGICAL: Patient is awake, alert and oriented x3. Cranial nerves 2 through 12 are grossly intact. Assessment Systolic heart failure exacerbation of unknown etiology at this point Permanent atrial fibrillation with controlled heart rate. Renal failure which is chronic Permanent pacemaker Multiple comorbid conditions including diabetes and hypertension and dyslipidemia Plan Continue oral anticoagulation Continue patient on hydralazine 10 mg 3 times daily Continue oral Lasix per nephrology Monitor renal function May consider upgrade to biventricular device in the future Patient is cleared for discharge from cardiology and may follow-up with Dr. Imelda Arriaza in 1 to 2 weeks. Nurse practitioner note has been reviewed, I agree with documented findings and plan of care. Patient was seen and examined. Objective - Vital Signs Vital signs: Vital Signs Temp 97.8 F 10/11/23 08:17 Pulse 71 10/11/23 12:05 Resp 16 10/11/23 12:05 BP 107/71 10/11/23 12:05 Pulse Ox 95 10/11/23 12:05 FiO2 Intake & Output 10/10/23 10/11/23 10/11/23 18:59 06:59 18:59 Intake Total 676 240 Output Total 300 Balance 676 -300 240 Weight 82.7 kg Intake: Oral 676 240 Output: Urine 300 Other: Voiding Method Toilet Toilet Toilet # Voids 1 # Bowel Movements 1 - Labs CBC & Chem 7: 10/09/23 08:39 10/11/23 07:49 Labs: Abnormal Lab Results - Last 24 Hours (Table) 10/10/23 10/10/23 10/11/23 Range/Units 16:40 20:42 05:51 BUN (9-20) mg/dL Creatinine (0.66-1.25) mg/dL Glucose (74-99) mg/dL POC Glucose (mg/dL) 165 H 144 H 126 H (70-110) mg/dL 10/11/23 10/11/23 Range/Units 07:49 11:43 BUN 49 H (9-20) mg/dL Creatinine 2.20 H (0.66-1.25) mg/dL Glucose 166 H (74-99) mg/dL POC Glucose (mg/dL) 234 H (70-110) mg/dL Microbiology - Last 24 Hours (Table) 10/07/23 16:44 Blood Culture - Preliminary Blood 10/07/23 16:20 Blood Culture - Preliminary Blood
[2023-10-11 17:35] VITALS: BP 107/76; PULSE 65
[2023-10-12] MEDS ORDERED: FUROSEMIDE 20 MG TAB PO SCH (09:00)
--- NOTE | 2023-10-12 15:17 | P.DS ---
Providers Date of admission: 10/07/23 20:07 Attending physician: Kecia Sawyer Consults: 10/07/23 20:07 Consult Physician Routine Consulting Provider: Cheikh Dash Consult Reason/Comments: CHF Do you want consulting provider notified?: Yes 10/10/23 12:56 Consult Physician Routine Consulting Provider: Darinel Molina Consult Reason/Comments: ROB Do you want consulting provider notified?: Yes Primary care physician: Perry Nichols Hospital Course: Final Diagnosis -Acute on chronic congestive heart failure systolic dysfunction -Nonischemic cardiomyopathy with worsening EF now 30% from 45-50% -Diabetes Mellitus type II -Paroxysmal atrial fibrillation on Eliquis -Sick sinus syndrome s/p permanent pacemaker 2019 -Chronic kidney disease, Acute on chronic -Dyslipidemia Full Code Discharge Disposition Patient is medically stable for discharge. Will go on room air and small dose of oral lasix 20 mg daily. Patient to repeat a BMP and mag in 1 week outpatient. He will discharge on renal dose of eliquis 2.5 mg BID. Patient to follow up with PCP Dr. Nichols on 10/13/23. Follow up appointments have been made with Dr. Molina and Dr. Chelsey Arriaza. Hospital Course This is an 83-year-old male medical history of chronic A-fib with diabetes mellitus, hyperlipidemia, TIA, brain aneurysm, pacemaker patient is anticoagulated with Eliquis. Patient came to the BUN of 22, creatinine 1.40 proBNP of 3330. Chest x-ray showing pulmonary vascular congestion. Patient was given keflex and admitted to the hospital under medicine with cardiology consultation. Patient had worsening shortness of breath with exertion and was monitored closely on IV lasix. He had worsening creatinine and was transitioned to oral lasix. He is currently on room air and has no signs of lower extremity edema. Creatinine worsened is currently 2.07 sodium of 134. Lasix has been discontinued at this time. Echocardiogram reveals an EF of 30% dilated left ventricle with mild to moderate MR secondary to the cardiomyopathy. Patient has been up ambulating does not require oxygen on discharge. Creatinine up to 2.20. Nephrology and cardiology have cleared for discharge and recommending repeat BMP in 1 week. No shortness of breath, no chest pain. Hemodynamically he is stable. He will discharge on a small dose of oral lasix. Please see medication reconciliation for a list of current medications. Thank you for allowing us to participate in the care of this patient. The impression and plan of care has been dictated by Lilli Chen, Nurse Practitioner as directed. Dr. Jacqueline MD I have performed a history and physical examination and medical decision making of this patient, discussed the same with the dictator, and agree with the dictators assessment and plan as written, documented as a scribe. Based on total visit time, I have performed more than 50% of this visit. Patient Condition at Discharge: Fair Plan - Discharge Summary Discharge Rx Participant: Yes New Discharge Prescriptions: New hydrALAZINE HCL 10 mg PO TID #180 tab Apixaban [Eliquis] 2.5 mg PO BID #60 tab Furosemide [Lasix] 20 mg PO DAILY #30 tab Famotidine [Pepcid] 20 mg PO DAILY #30 tab Continue Fenofibrate Nanocrystallized [Tricor] 145 mg PO DAILY Tamsulosin HCl [Flomax] 0.4 mg PO HS Metoprolol Succinate (ER) [Toprol XL] 25 mg PO BID Cholecalciferol [Vitamin D3 (25 Mcg = 1000 Iu)] 50 mcg PO DAILY Gabapentin [Neurontin] 400 mg PO QID Dulaglutide [Trulicity] 4.5 mg SQ MO Sodium Bicarbonate Tab 650 mg PO HS Empagliflozin [Jardiance] 10 mg PO DAILY Discontinued Apixaban [Eliquis] 5 mg PO BID Discharge Medication List Fenofibrate Nanocrystallized [Tricor] 145 mg PO DAILY 01/18/18 [History] Tamsulosin HCl [Flomax] 0.4 mg PO HS 01/18/18 [History] Metoprolol Succinate (ER) [Toprol XL] 25 mg PO BID 07/30/20 [History] Sodium Bicarbonate Tab 650 mg PO HS 07/04/21 [History] Cholecalciferol [Vitamin D3 (25 Mcg = 1000 Iu)] 50 mcg PO DAILY 10/07/23 [History] Dulaglutide [Trulicity] 4.5 mg SQ MO 10/07/23 [History] Empagliflozin [Jardiance] 10 mg PO DAILY 10/07/23 [History] Gabapentin [Neurontin] 400 mg PO QID 10/07/23 [History] Apixaban [Eliquis] 2.5 mg PO BID #60 tab 10/11/23 [Rx] Famotidine [Pepcid] 20 mg PO DAILY #30 tab 10/11/23 [Rx] Furosemide [Lasix] 20 mg PO DAILY #30 tab 10/11/23 [Rx] hydrALAZINE HCL 10 mg PO TID #180 tab 10/11/23 [Rx] Follow up Appointment(s)/Referral(s): Perry Nichols MD [Primary Care Provider] - 10/13/23 10:40 am Darinel Molina DO [STAFF PHYSICIAN] - 10/23/23 9:00 am Allen Arriaza MD [STAFF PHYSICIAN] - 11/06/23 3:45 pm Ambulatory/Diagnostic Orders: Basic Metabolic Panel [LAB.AMB] Time Frame: 3 Days, Location: None Selected Magnesium [LAB.AMB] Location: None Selected Patient Instructions/Handouts: Heart Failure (DC), Low-Sodium Diet (DC), Bronchospasm (ED) Discharge Disposition: HOME SELF-CARE
== END 2023-10-11 18:59 | disposition home or self-care (01) | DRG 291 ==
LOC: EC 15:33 → 3SCARD 20:07
PROVIDERS: ADMIT Hospitalist; ATTEND Hospitalist
DX: I13.0 Hypertensive heart and chronic kidney disease with heart failure and stage 1 through stage 4 chronic kidney disease, or unspecified chronic kidney disease (principal); I50.23 Acute on chronic systolic (congestive) heart failure; N17.0 Acute kidney failure with tubular necrosis; I48.21 Permanent atrial fibrillation; I67.1 Cerebral aneurysm, nonruptured; I49.5 Sick sinus syndrome; E11.22 Type 2 diabetes mellitus with diabetic chronic kidney disease; I42.8 Other cardiomyopathies; N18.32 Chronic kidney disease, stage 3b; I34.0 Nonrheumatic mitral (valve) insufficiency; N28.1 Cyst of kidney, acquired; E78.5 Hyperlipidemia, unspecified; R00.8 Other abnormalities of heart beat; Z79.01 Long term (current) use of anticoagulants; Z95.0 Presence of cardiac pacemaker; Z86.73 Personal history of transient ischemic attack (TIA), and cerebral infarction without residual deficits; Z79.84 Long term (current) use of oral hypoglycemic drugs; Z79.85 Long-term (current) use of injectable non-insulin antidiabetic drugs; Z79.891 Long term (current) use of opiate analgesic; Z88.5 Allergy status to narcotic agent; Z11.52 Encounter for screening for COVID-19; Z79.899 Other long term (current) drug therapy
CPT/HCPCS: 36415; 71046; 80048; 80053; 83036; 83605; 83735; 83880; 84484; 85025; 85379; 85610; 85730; 87040; 87636; 93306; 94640; 94760; 96374; 99291

== ENCOUNTER 2023-11-17 10:20 | Day surgery (SDC) | payer MEDICARE ==
[2023-11-16 09:43] VITALS: BMI 25.0
[2023-11-17 10:46] LABS: Glucose,Whole Blood 113 mg/dL (70-110)
[2023-11-17] MEDS: IV FLUID CONTINUATION 1,000 ML IV ONE ×2 (10:48→11:14)
[2023-11-17] MEDS: LACTATED RINGERS 1,000 ML IV SCH (10:48)
[2023-11-17] MEDS ORDERED: PROPOFOL 10 MG/ML 20 ML VIAL IV ONE (11:16)
[2023-11-17 11:30] VITALS: RESP 18; TEMP 97
--- NOTE | 2023-11-17 11:49 | P.PCN ---
Date of Procedure: 11/17/23 Procedure(s) Performed: BRIEF HISTORY: Patient is a 83-year-old pleasant white male scheduled for an elective colonoscopy as a part of evaluation of chronic diarrhea and prior history of colon polyps PROCEDURE PERFORMED: Colonoscopy with random biopsies. PREOPERATIVE DIAGNOSIS: Chronic diarrhea and history of colon polyps IV sedation per Anesthesia. PROCEDURE: After informed consent was obtained, the patient, was brought into the endoscopy unit. IV sedation was administered by Anesthesia under continuous monitoring. Digital rectal examination was normal. Initially the Olympus CF-160 flexible video colonoscope was then inserted in the rectum, gradually advanced into the cecum without any difficulty. Careful examination was performed as the scope was gradually being withdrawn. Ileocecal valve and the appendiceal orifice were visualized and appeared normal. Prep was excellent. Mucosa of the cecum, ascending colon, appeared normal. The transverse colon there was a 5 mm polyp that was removed by cold biopsy rest of the transverse colon, descending colon, sigmoid colon, and rectum appeared normal. Biopsies were done from the ascending and descending colon to rule out microscopic/collagenous colitis. Scattered sigmoid diverticulosis. Retroflexion was performed in the rectum and no lesions were seen. The patient tolerated the procedure well. IMPRESSION: 5 mm transverse colon polyp status post removal by cold biopsy Scattered sigmoid diverticulosis Rest of the colon appeared normal RECOMMENDATIONS: Findings of this examination were discussed with the patient with his family. He was advised to follow-up with the biopsy results. He was advised to follow-up the biopsy results. Continue with current medications.
[2023-11-17 12:26] VITALS: BP 122/73; PULSE 64
== END 2023-11-17 12:15 | disposition home or self-care (01) ==
LOC: ORWHC2ENDO 10:20
PROVIDERS: ATTEND Internal Medicine Gastroenterology
DX: D12.3 Benign neoplasm of transverse colon (principal); K57.30 Diverticulosis of large intestine without perforation or abscess without bleeding; K52.9 Noninfective gastroenteritis and colitis, unspecified; I11.0 Hypertensive heart disease with heart failure; I50.9 Heart failure, unspecified; I48.91 Unspecified atrial fibrillation; I34.1 Nonrheumatic mitral (valve) prolapse; N28.9 Disorder of kidney and ureter, unspecified; K21.9 Gastro-esophageal reflux disease without esophagitis; I67.1 Cerebral aneurysm, nonruptured; Z86.010 Personal history of colon polyps; Z88.5 Allergy status to narcotic agent; Z86.73 Personal history of transient ischemic attack (TIA), and cerebral infarction without residual deficits; Z79.01 Long term (current) use of anticoagulants; Z79.85 Long-term (current) use of injectable non-insulin antidiabetic drugs; Z79.899 Other long term (current) drug therapy; Z95.0 Presence of cardiac pacemaker
CPT/HCPCS: 88305; 45380; J2704

== ENCOUNTER → 2024-02-22 | Outpatient (CLI) | payer MEDICARE ==
[2024-02-22 15:29] LABS: Appearance,Urine Clear (Clear); Bilirubin,Urine Negative (Negative); Blood,Urine Negative (Negative); Color,Urine Yellow (Yellow); Ketones,Urine Negative (Negative); Nitrite,Urine Negative (Negative); Specific Gravity,Urine 1.018 (1.001-1.030); Urobilinogen,Urine 0.2 E.U./DL
[2024-02-22 15:50] LABS: HCT 44.6 % (39.6-50.0); HGB 14.8 g/dL (13.0-17.0); MCH 31.8 pg (27.0-32.0); MCHC 33.2 g/dL (32.0-37.0); MCV 95.9 FL (80.0-97.0); Mean Platelet Volume 9.9 FL (9.5-12.2); NRBC Per 100 WBC 0 X 10*3/uL (0.00-0.01); Platelet Count 155 X 10*3/uL (140-440); RBC 4.65 X 10*6/uL (4.40-5.60); RDW 12.8 % (11.5-14.5); WBC 4.82 X 10*3/uL (4.50-10.00)
[2024-02-22 16:52] LABS: Magnesium 2.1 mg/dL (1.5-2.4); Phosphorus 4.1 mg/dL (2.4-5.1); Uric Acid 6.7 mg/dL (3.7-8.7)
[2024-02-22 16:53] LABS: % Iron Saturation 28.38 (15.00-50.00); ALT 14 U/L (10-49); AST 15 U/L (14-35); Albumin 4.1 g/dL (3.8-4.9); Albumin/Globulin Ratio 1.58 Ratio (1.60-3.17); Alkaline Phosphatase 37 U/L (41-126); BUN/Creat Ratio 15.47 Ratio (12.00-20.00); Blood Urea Nitrogen 26.3 mg/dL (9.0-27.0); Calcium 9.2 mg/dL (8.7-10.3); Chloride 104 mmol/L (96-109); Globulin 2.6 g/dL (1.6-3.3); Glucose 231 mg/dL (70-110); Iron 107 UG/DL (65-175); Potassium 4.1 mmol/L (3.5-5.5); Sodium 139 mmol/L (135-145); Total Bilirubin 0.5 mg/dL (0.3-1.2); Total Iron Binding Capacity 377 UG/DL (228-460); Total Protein 6.7 g/dL (6.2-8.2)
[2024-02-22 22:45] LABS: Microalbumin Creatinine Ratio <25 mg/g Cr (0-30); Urine Creatinine 47.4 mg/dL (39.0-259.0)
== END | disposition home or self-care (01) ==
LOC: LABWHC1 10:19
PROVIDERS: ATTEND Internal Medicine
DX: N18.32 Chronic kidney disease, stage 3b
CPT/HCPCS: 36415; 80053; 81003; 82043; 82306; 82570; 82728; 83540; 83550; 83735; 83970; 84100; 84550; 85027

== ENCOUNTER 2024-05-12 11:06 | Emergency (ER) | payer MEDICARE ==
[2024-05-12 11:37] VITALS: RESP 18; TEMP 98.1
[2024-05-12] MEDS: LIDOCAINE 1% INJ 10MG/ML (20 ML MDV) SQ ONE (11:52)
[2024-05-12] MEDS: DIPH,PERTUS(ACELL)TETVAC-LF 0.5 ML VIAL IM ONE (12:05)
--- NOTE | 2024-05-12 12:19 | XR ---
EXAMINATION TYPE: XR hand limited LT DATE OF EXAM: 05/12/2024 CLINICAL HISTORY: Dorsal laceration from shattered glass, concern for retained foreign bodies TECHNIQUE: Frontal and lateral images of the left hand are obtained. COMPARISON: None. FINDINGS: There is no acute fracture/dislocation evident in the left hand. The joint spaces in the l eft hand show some narrowing of the PIP and DIP joints. The overlying soft tissue appears unremarkab le without definitive suspicious radiodense foreign bodies seen. Overlying clothing material level at the level of the distal forearm is noted. IMPRESSION: As above. [facility], , 05/12/2024 12:17 PM
--- NOTE | 2024-05-12 12:34 | ED ---
Wound/Laceration HPI - General Chief Complaint: Wound/Laceration Stated Complaint: L thumb injury Time Seen by Provider: 05/12/24 11:20 Source: patient, family, RN notes reviewed Mode of arrival: ambulatory Limitations: no limitations - History of Present Illness Initial Comments: This is an 83-year-old male presenting with for left hand/thumb laceration this morning. Patient states he was attempting to open a glass bottle of syrup with pliers when the glass broke cutting his left hand. Patient states pain is currently 3/10 but otherwise denies loss of sensation or motor function in hand/thumb. Patient states he is unsure of vaccination status. Onset/Timin -: minutes(s) Time: 10:50 Extremity Location: Left: Hand Place: home Patient Tetanus UTD: No (Unknown) Context: accidental Associated Symptoms: pain, suspect foreign body present Treatments Prior to Arrival: bandage - Related Data Home Medications Medication Instructions Recorded Confirmed Fenofibrate Nanocrystallized 145 mg PO QAM 01/18/18 11/17/23 [Tricor] Tamsulosin HCl [Flomax] 0.4 mg PO HS 01/18/18 11/17/23 Metoprolol Succinate (ER) [Toprol 25 mg PO BID 07/30/20 11/17/23 XL] Sodium Bicarbonate Tab 650 mg PO HS 07/04/21 11/17/23 Cholecalciferol [Vitamin D3 (25 50 mcg PO QAM 10/07/23 11/17/23 Mcg = 1000 Iu)] Dulaglutide [Trulicity] 4.5 mg SQ MO 10/07/23 11/17/23 Empagliflozin [Jardiance] 10 mg PO QAM 10/07/23 11/17/23 Gabapentin [Neurontin] 400 mg PO QID 10/07/23 11/17/23 Famotidine [Pepcid] 20 mg PO QAM 11/16/23 11/17/23 Furosemide [Lasix] 20 mg PO QAM 11/16/23 11/17/23 Previous Rx's Medication Instructions Recorded Apixaban [Eliquis] 2.5 mg PO BID #60 tab 10/11/23 hydrALAZINE HCL 10 mg PO TID #180 tab 10/11/23 Cephalexin [Keflex] 500 mg PO Q6HR 5 Days #20 cap 05/12/24 Allergies Allergy/AdvReac Type Severity Reaction Status Date / Time morphine AdvReac Nausea & Verified 05/12/24 11:31 Vomiting Review of Systems ROS Statement: Those systems with pertinent positive or pertinent negative responses have been documented in the HPI. ROS Other: All systems not noted in ROS Statement are negative. Past Medical History Past Medical History: Atrial Fibrillation, Heart Failure, CVA/TIA, Diabetes Mellitus, GERD/Reflux, Hyperlipidemia, Hypertension, Pneumonia, Prostate Disorder, Renal Disease Additional Past Medical History / Comment(s): leaking mitral valve,, cyst on kidney, "small brain aneurysm too small to repair", TIA 06/2021 ago-no residual effects, "constant diarrhea", "feet always tingling", Type II diabetic IDDM, recent hospitalization R./T "CHF and Kidney Failure" @[facility]. History of Any Multi-Drug Resistant Organisms: None Reported Past Surgical History: Appendectomy, Cholecystectomy, Heart Catheterization, Orthopedic Surgery, Pacemaker, Tonsillectomy Additional Past Surgical History / Comment(s): torn retina rt eye surgery x 2, massiel cataracts, colonoscopy w/polyps. left shoulder rotator cuff, Rt knee replacement. Past Anesthesia/Blood Transfusion Reactions: Previous Problems w/ Anesthesia Additional Past Anesthesia/Blood Transfusion Reaction / Comment(s): diff waking up after colonoscopy-took long time Type of Cardiac Device: Permanent Pacemaker Device Placement Date:: 12/2019 Past Psychological History: No Psychological Hx Reported Smoking Status: Never smoker - Past Family History Daughter(s) Family Medical History: Cancer Additional Family Medical History / Comment(s): ovarian Brother(s) Family Medical History: Cancer Additional Family Medical History / Comment(s): pancreatic Father Family Medical History: Cancer Additional Family Medical History / Comment(s): leukemia General Exam Limitations: no limitations General appearance: alert, in no apparent distress Head exam: Present: atraumatic, normocephalic, normal inspection Eye exam: Present: normal appearance, PERRL, EOMI. Absent: scleral icterus, conjunctival injection, periorbital swelling ENT exam: Present: normal exam, mucous membranes moist Neck exam: Present: normal inspection. Absent: tenderness, meningismus, lymphadenopathy Respiratory exam: Present: normal lung sounds bilaterally. Absent: respiratory distress, wheezes, rales, rhonchi, stridor Cardiovascular Exam: Present: regular rate, normal rhythm, normal heart sounds. Absent: systolic murmur, diastolic murmur, rubs, gallop, clicks GI/Abdominal exam: Present: soft, normal bowel sounds. Absent: distended, tenderness, guarding, rebound, rigid Extremities exam: Present: normal inspection, full ROM, normal capillary refill. Absent: tenderness, pedal edema, joint swelling, calf tenderness Back exam: Present: normal inspection Neurological exam: Present: alert, oriented X3, CN II-XII intact Psychiatric exam: Present: normal affect, normal mood Skin exam: Present: warm, dry, intact, normal color, other (Left dorsal thumb 3 cm jagged horizontal laceration across MCP joint. No obvious foreign body v isualized with capillary bleeding noted. Left thumb neurovascular and motor function intact, capillary refill less than 2 seconds). Absent: rash Course Vital Signs 05/12/24 05/12/24 11:31 13:11 Temperature 98.1 F 98.1 F Pulse Rate 64 52 L Respiratory 18 18 Rate Blood Pressure 113/69 111/69 O2 Sat by Pulse 98 96 Oximetry Procedures - Laceration Laceration #1 Consent Obtained: verbal consent Indication: laceration Site: hand Size (cm): 4 Description: irregular Depth: simple, single layer Anesthetic Used: lidocaine 1% Anesthesia Technique: local infiltration Amount (mls): 5 Pre-repair: wound explored, irrigated extensively Type of Sutures: nylon Size of Sutures: 5-0 Number of Sutures: 8 Technique: running Patient Tolerated Procedure: well Medical Decision Making - Medical Decision Making Was pt. sent in by a medical professional or institution (, PA, TELEVISION AND RADIO REPAIRER, urgent care, hospital, or penitentiary...) When possible be specific @ -No Did you speak to anyone other than the patient for history (EMS, parent, family, police, friend...)? What history was obtained from this source @ -No Did you review nursing and triage notes (agree or disagree)? Why? @ -I reviewed and agree with nursing and triage notes Were old charts reviewed (outside hosp., previous admission, EMS record, old EKG, old radiological studies, urgent care reports/EKG's, penitentiary records)? Report findings @ -No old charts were reviewed Differential Diagnosis (chest pain, altered mental status, abdominal pain women, abdominal pain men, vaginal bleeding, weakness, fever, dyspnea, syncope, headache, dizziness, GI bleed, back pain, seizure, CVA, palpatations, mental health, musculoskeletal)? @ -Hand laceration, retained foreign bodies, phalanges/metacarpal fracture, dislocation, cellulitis, hemorrhage, this is not an exhaustive list EKG interpreted by me (3pts min.). @ -Not done X-rays interpreted by me (1pt min.). @ -Left hand x-ray shows no acute fracture, dislocation or obvious radiopaque foreign body CT interpreted by me (1pt min.). @ -None done U/S interpreted by me (1pt. min.). @ -None done What testing was considered but not performed or refused? (CT, X-rays, U/S, labs)? Why? @ -None What meds were considered but not given or refused? Why? @ -None Did you discuss the management of the patient with other professionals (professionals i.e. , PA, TELEVISION AND RADIO REPAIRER, lab, RT, psych nurse, social contact worker, psych coordinator, teacher, customs and border protection officer, caser)? Give summary @ -No Was smoking cessation discussed for >3mins.? @ -No Was critical care preformed (if so, how long)? @ -No Were there social determinants of health that impacted care today? How? (Homele ssness, low income, unemployed, alcoholism, drug addiction, transportation, low edu. Level, literacy, decrease access to med. care, group home, rehab)? @ -No Was there de-escalation of care discussed even if they declined (Discuss DNR or withdrawal of care, Hospice)? DNR status @ -No What co-morbidities impacted this encounter? (DM, HTN, Smoking, COPD, CAD, Cancer, CVA, ARF, Chemo, Hep., AIDS, mental health diagnosis, sleep apnea, morbid obesity)? @ -DM Was patient admitted / discharged? Hospital course, mention meds given and route, prescriptions, significant lab abnormalities, going to OR and other pertinent info. @ -Radiologist unable to visualize any foreign bodies in left hand. Tetanus vaccination given. Left hand irrigated and sutured. Advised follow-up with primary care and at least 10 days for suture removal. Undiagnosed new problem with uncertain prognosis? @ -No Drug Therapy requiring intensive monitoring for toxicity (Heparin, Nitro, Insulin, Cardizem)? @ -No Were any procedures done? @ -Suture of hand laceration performed Diagnosis/symptom? @ -Left hand/thumb laceration Acute, or Chronic, or Acute on Chronic? @ -Acute Uncomplicated (without systemic symptoms) or Complicated (systemic symptoms)? @ -Uncomplicated Side effects of treatment? @ -No Exacerbation, Progression, or Severe Exacerbation? @ -No Poses a threat to life or bodily function? How? (Chest pain, [place], [place], pneumonia, PE, COPD, DKA, ARF, appy, cholecystitis, CVA, Diverticulitis, Homicidal, Suicidal, threat to staff... and all critical care pts) @ -No Disposition Clinical Impression: Laceration Disposition: HOME SELF-CARE Condition: Good Instructions (If sedation given, give patient instructions): Care For Your Stitches (DC) Prescriptions: Cephalexin [Keflex] 500 mg PO Q6HR 5 Days #20 cap Is patient prescribed a controlled substance at d/c from ED?: No Referrals: Perry Nichols MD [Primary Care Provider] - 1-2 days Time of Disposition: 13:09
[2024-05-12 13:12] VITALS: BP 111/69; PULSE 52
== END 2024-05-12 13:35 | disposition home or self-care (01) ==
LOC: EC 11:06
DX: S61.012A Laceration without foreign body of left thumb without damage to nail, initial encounter (principal); E11.36 Type 2 diabetes mellitus with diabetic cataract; Z88.5 Allergy status to narcotic agent; Z86.73 Personal history of transient ischemic attack (TIA), and cerebral infarction without residual deficits; Z23 Encounter for immunization; W25.XXXA Contact with sharp glass, initial encounter
CPT/HCPCS: 73120; 90715; 12002; 99283; 90471; J2003

== ENCOUNTER → 2024-06-24 | Outpatient (CLI) | payer MEDICARE ==
[2024-06-24 21:41] LABS: Appearance,Urine Clear (Clear); Bilirubin,Urine Negative (Negative); Blood,Urine Negative (Negative); Color,Urine Yellow (Yellow); Ketones,Urine Negative (Negative); Nitrite,Urine Negative (Negative); PH, Urine 5.5; Specific Gravity,Urine 1.018 (1.001-1.030); Urobilinogen,Urine 0.2 E.U./DL
[2024-06-24 22:21] LABS: HCT 48.2 % (39.6-50.0); HGB 15.7 g/dL (13.0-17.0); MCH 31.2 pg (27.0-32.0); MCHC 32.6 g/dL (32.0-37.0); MCV 95.8 FL (80.0-97.0); Mean Platelet Volume 10.8 FL (9.5-12.2); NRBC Per 100 WBC 0 X 10*3/uL (0.00-0.01); Platelet Count 147 X 10*3/uL (140-440); RBC 5.03 X 10*6/uL (4.40-5.60); RDW 12.8 % (11.5-14.5); WBC 7.35 X 10*3/uL (4.50-10.00)
[2024-06-24 22:35] LABS: ALT 11 U/L (10-49); AST 18 U/L (14-35); Albumin 4.2 g/dL (3.8-4.9); Albumin/Globulin Ratio 1.24 Ratio (1.60-3.17); Alkaline Phosphatase 42 U/L (41-126); Blood Urea Nitrogen 26.8 mg/dL (9.0-27.0); Calcium 9.6 mg/dL (8.7-10.3); Carbon Dioxide 24.7 mmol/L (21.6-31.8); Chloride 100 mmol/L (96-109); Globulin 3.4 g/dL (1.6-3.3); Glucose 209 mg/dL (70-110); Magnesium 2.2 mg/dL (1.5-2.4); Phosphorus 3.5 mg/dL (2.4-5.1); Potassium 4.3 mmol/L (3.5-5.5); Sodium 140 mmol/L (135-145); Total Bilirubin 0.8 mg/dL (0.3-1.2); Total Protein 7.6 g/dL (6.2-8.2); Uric Acid 7.1 mg/dL (3.7-8.7)
[2024-06-24 23:14] LABS: % Iron Saturation 16.08 (15.00-50.00); Iron 68 UG/DL (65-175); Total Iron Binding Capacity 423 UG/DL (228-460)
[2024-06-25 11:59] LABS: Free Kappa Lt Chain Qnt, Serum 3.55 mg/dL (0.33-1.94); Free Lambda Lt Chain Qnt, Seru 2.52 mg/dL (0.57-2.63)
== END | disposition home or self-care (01) ==
LOC: LABWHC1 15:51
PROVIDERS: ATTEND Internal Medicine
DX: N18.32 Chronic kidney disease, stage 3b (principal); D63.1 Anemia in chronic kidney disease; N39.0 Urinary tract infection, site not specified; E55.9 Vitamin D deficiency, unspecified; N25.81 Secondary hyperparathyroidism of renal origin; M10.9 Gout, unspecified
CPT/HCPCS: 36415; 80053; 81003; 82306; 82728; 83540; 83550; 83735; 83883; 83970; 84100; 84166; 84550; 85027; 86334

== ENCOUNTER → 2024-09-17 | Outpatient (CLI) | payer MEDICARE ==
[2024-09-17 15:05] LABS: Chloride 103 mmol/L (96-109); Glucose 132 mg/dL (70-110); Potassium 4.6 mmol/L (3.5-5.5); Sodium 140 mmol/L (135-145)
[2024-09-17 15:06] LABS: Calcium 9.6 mg/dL (8.7-10.3); Carbon Dioxide 26.4 mmol/L (21.6-31.8)
[2024-09-17 15:54] LABS: HCT 50.3 % (39.6-50.0); HGB 16.5 g/dL (13.0-17.0); MCH 31.5 pg (27.0-32.0); MCHC 32.8 g/dL (32.0-37.0); NRBC Per 100 WBC 0 X 10*3/uL (0.00-0.01); Platelet Count 149 X 10*3/uL (140-440); RBC 5.24 X 10*6/uL (4.40-5.60); RDW 12.9 % (11.5-14.5); WBC 5.34 X 10*3/uL (4.50-10.00)
== END | disposition home or self-care (01) ==
LOC: LABWHC1 11:43
PROVIDERS: ATTEND Internal Medicine Cardiovascular Disease
DX: R55 Syncope and collapse (principal)
CPT/HCPCS: 36415; 80048; 84443; 85027

== ENCOUNTER → 2024-09-24 | Outpatient (CLI) | payer MEDICARE ==
--- NOTE | 2024-09-27 10:49 | XR ---
EXAMINATION TYPE: XR bone survey complete DATE OF EXAM: 09/24/2024 3:41 PM COMPARISON: None. CLINICAL INDICATION: Male, 84 years old with history of D47.2 MONOCLONAL GAMMOPATHY, TECHNIQUE: XR bone survey with multiple view(s) obtained. FINDINGS: Chest x-ray: Heart size is mildly prominent. Pacemaker overlies left chest. Some mild infiltrate may be at the apex. No suspicious osseous abnormality is identified. Cervical spine: Cervical spine is examined in 2 projections. Facet degenerative changes are present. Prevertebral space is normal. Posterior spinal lamellar line is intact. Degenerative disc changes are present. Vertebral body spurring is present. No suspicious lytic lesions evident. Humeri: Single views of the bilateral humeri are obtained. No suspicious lytic lesions evident. Skull: 2 views of the calvarium are obtained. No suspicious lytic lesions are identified. Thoracic spine: Spondylosis is present. 12 thoracic type vertebral bodies are present. Pedicles are i ntact. No suspicious lytic lesions evident. Lumbar spine: There are 5 lumbar-type vertebral bodies. Pedicles are intact. Disc heights are preserv ed. Vertebral body heights are preserved. No suspicious lytic lesions evident. Pelvis: Femoral heads articulate with the acetabulum. Symphysis pubis and sacroiliac joints are fredis l. No suspicious lytic lesions evident. Femurs: Ill-defined ill bordered hypodensity may be within the proximal diaphyseal right femur. This may measure up to 1.2 cm in craniocaudal dimension No additional suspicious lytic areas evident. IMPRESSION: 1. Ill-defined hypodense area may be within the proximal diaphyseal right femur. 2. No additional suspicious lytic areas evident. [facility], , 09/27/2024 10:46 AM
== END | disposition home or self-care (01) ==
LOC: RADXRMAIN 14:32
PROVIDERS: ATTEND Internal Medicine Hematology & Oncology
DX: D47.2 Monoclonal gammopathy (principal); G45.9 Transient cerebral ischemic attack, unspecified; N28.9 Disorder of kidney and ureter, unspecified; E11.9 Type 2 diabetes mellitus without complications
CPT/HCPCS: 77075

== ENCOUNTER → 2024-09-24 | Outpatient (CLI) | payer MEDICARE ==
--- NOTE | 2024-09-24 15:11 | US ---
EXAMINATION TYPE: US carotid duplex BILAT DATE OF EXAM: 09/24/2024 COMPARISON: NONE CLINICAL INDICATION: Male, 84 years old with history of R55 SYNCOPE AND COLLAPSE; TECHNIQUE: Grayscale, color Doppler and spectral Doppler evaluation of the bilateral carotid systems and vertebral arteries. Indirect Doppler criteria was utilized. FINDINGS: EXAM MEASUREMENTS: RIGHT: Peak Systolic Velocity (PSV) cm/sec ----- Right CCA: 46.7 ----- Right ICA: 71.2 ----- Right ECA: 69.2 ICA/CCA ratio: 1.5 RIGHT: End Diastole cm/sec ----- Right CCA: 10.0 ----- Right ICA: 26.4 ----- Right ECA: 8.0 LEFT: Peak Systolic Velocity (PSV) cm/sec ----- Left CCA: 56.8 ----- Left ICA: 56.8 ----- Left ECA: 50.4 ICA/CCA ratio: 1.0 LEFT: End Diastole cm/sec ----- Left CCA: 14.4 ----- Left ICA: 25.6 ----- Left ECA: 6.8 VERTEBRALS (direction of flow): Right Vertebral: Antegrade Left Vertebral: Antegrade Rhythm: Normal IMPRESSION: 1. No significant flow-limiting stenosis based on velocities. Criteria for Assigning % of Stenosis / Diameter reduction (Estimation based on the indirect measurements of the internal carotid artery velocities (ICA PSV). 1. Normal (no stenosis)=ICA PSV < 180 cm/s: ratio < 2.0: ICA EDV<40 cm/s. 2. Less than 50% stenosis=ICA PSV < 180 cm/s: ratio < 2.0: ICA EDV<40 cm/s. 3. 50 to 69% stenosis=ICA PSV of 180 to 230 cm/s: ration 2.0 ? 4.0: ICA EDV 40-100 cm/s. PSV 125-180 cm/sec and ICA/CCA PSV Ratio ? 2.0 is also consistent with 50-69% stenosis 4. Greater than 70% stenosis to near occlusion= ICA PSV > 230 cm/s: ratio > 4.0: ICA EDV > 100 cm/s. 5. Near occlusion= ICA PSV velocities may be low or undetectable: variable ratio and ICA EDV. 6. Total occlusion=unable to detect flow. [facility], , 09/24/2024 3:09 PM
== END | disposition home or self-care (01) ==
LOC: RADUSWWP 14:28
PROVIDERS: ATTEND Family Medicine
DX: R55 Syncope and collapse (principal)
CPT/HCPCS: 93880

== ENCOUNTER → 2024-10-21 | Outpatient (CLI) | payer MEDICARE ==
[2024-10-21 20:08] LABS: Appearance,Urine Clear (Clear); Bilirubin,Urine Negative (Negative); Blood,Urine Negative (Negative); Color,Urine Yellow (Yellow); Ketones,Urine Negative (Negative); Nitrite,Urine Negative (Negative); Specific Gravity,Urine 1.017 (1.001-1.030); Urobilinogen,Urine 0.2 E.U./DL
[2024-10-21 21:39] LABS: HCT 46.8 % (39.6-50.0); HGB 15.4 g/dL (13.0-17.0); MCH 31.4 pg (27.0-32.0); MCHC 32.9 g/dL (32.0-37.0); MCV 95.3 FL (80.0-97.0); Mean Platelet Volume 9.6 FL (9.5-12.2); NRBC Per 100 WBC 0 X 10*3/uL (0.00-0.01); Platelet Count 148 X 10*3/uL (140-440); RBC 4.91 X 10*6/uL (4.40-5.60); RDW 13.1 % (11.5-14.5); WBC 5.08 X 10*3/uL (4.50-10.00)
[2024-10-21 21:56] LABS: % Iron Saturation 32.09 (15.00-50.00); ALT 18 U/L (10-49); AST 27 U/L (14-35); Albumin/Globulin Ratio 1.38 Ratio (1.60-3.17); Alkaline Phosphatase 43 U/L (41-126); Blood Urea Nitrogen 25.6 mg/dL (9.0-27.0); Calcium 9.3 mg/dL (8.7-10.3); Chloride 103 mmol/L (96-109); Globulin 2.9 g/dL (1.6-3.3); Glucose 218 mg/dL (70-110); Iron 120 UG/DL (65-175); Magnesium 2.2 mg/dL (1.5-2.4); Phosphorus 2.8 mg/dL (2.4-5.1); Potassium 4.2 mmol/L (3.5-5.5); Sodium 139 mmol/L (135-145); Total Bilirubin 0.5 mg/dL (0.3-1.2); Total Iron Binding Capacity 374 UG/DL (228-460); Total Protein 6.9 g/dL (6.2-8.2); Uric Acid 6.8 mg/dL (3.7-8.7)
== END | disposition home or self-care (01) ==
LOC: LABWHC1 14:51
PROVIDERS: ATTEND Internal Medicine Nephrology
DX: N18.32 Chronic kidney disease, stage 3b (principal); D63.1 Anemia in chronic kidney disease; N39.0 Urinary tract infection, site not specified; E55.9 Vitamin D deficiency, unspecified; N25.81 Secondary hyperparathyroidism of renal origin; M10.9 Gout, unspecified
CPT/HCPCS: 36415; 80053; 81003; 82306; 82728; 83540; 83550; 83735; 83970; 84100; 84550; 85027

== ENCOUNTER → 2024-12-17 | Day surgery (SDC) | payer MEDICARE ==
[2024-12-13 13:01] VITALS: BMI 26.7
[~2024-12-17] MED LIST changes: -ACETAMINOPHEN TAB 500 MG TAB PO PRN; -DEXAMETHASONE SOD PHOSPHATE 4 MG/ML 1 ML VIAL IV ONE; -MELOXICAM 7.5 MG TAB PO PRN; -ONDANSETRON 4 MG/2 ML VIAL IVP ONE; +SODIUM CHLORIDE 0.9% 1,000 ML IV SCH; -TRANEXAMIC ACID IN NACL,ISO-OS 1,000 MG in SALINE 1 100ML.BAG IVPB PRN
[2024-12-17] MEDS: IV FLUID CONTINUATION 1,000 ML IV ONE (14:57)
[2024-12-17 15:11] LABS: Glucose,Whole Blood 149 mg/dL (70-110)
[2024-12-17 15:12] VITALS: BP 114/76; PULSE 60; RESP 16; TEMP 98.5
[2024-12-17] MEDS: IOPAMIDOL-370 100ML BTL IVP ONE ×2 (15:57)
--- NOTE | 2024-12-17 16:44 | P.EPPROC ---
- EP Procedure Note Electrophysiology Procedure Note: Diagnosis Cardiomyopathy 100% RV pacing Cinefluoroscopy revealed an RV lead in the RV apex without any fractures or breaks Left upper extremity venogram performed with 15 cc IV dye. Patent left subclavian and innominate vein Plan proceed with upgrade to a biventricular pacemaker for management of cardiomyopathy and heart failure Continue heart failure medications including Farxiga
== END ==
LOC: CATHEP 14:22
PROVIDERS: ATTEND Internal Medicine Clinical Cardiac Electrophysiology
DX: I42.9 Cardiomyopathy, unspecified (principal); I50.22 Chronic systolic (congestive) heart failure; Z79.01 Long term (current) use of anticoagulants; Z79.899 Other long term (current) drug therapy
CPT/HCPCS: 36005; 75820; Q9967

== ENCOUNTER 2025-01-09 12:45 | Day surgery (SDC) | payer MEDICARE ==
[2025-01-07 09:39] VITALS: BMI 25.9
[2025-01-09] MEDS: IV FLUID CONTINUATION 1,000 ML IV ONE (12:57)
[2025-01-09] MEDS: SODIUM CHLORIDE 0.9% 1,000 ML IV SCH (13:06)
[2025-01-09 13:17] VITALS: RESP 16
[2025-01-09 13:27] LABS: Basophils # (A) 0.06 10*3/uL (0.00-0.10); Basophils % (A) 0.8 %; Eosinophils # (A) 0.15 10*3/uL (0.04-0.35); Eosinophils % (A) 2.1 %; HCT 45.4 % (39.6-50.0); HGB 15.6 g/dL (13.0-17.0); Lymphocytes # (A) 1.99 10*3/uL (0.90-5.00); Lymphocytes % (A) 28.0 %; MCH 32.4 pg (27.0-32.0); MCHC 34.4 g/dL (32.0-37.0); MCV 94.4 fL (80.0-97.0); Monocytes # (A) 0.66 10*3/uL (0.20-1.00); Monocytes % (A) 9.3 %; Neutrophils # (A) 4.23 10*3/uL (1.80-7.70); Neutrophils % (A) 59.7 %; Platelet Count 153 10*3/uL (140-440); RBC 4.81 10*6/uL (4.40-5.60); RDW 12.6 % (11.5-14.5); WBC 7.10 10*3/uL (4.50-10.00)
[2025-01-09 13:42] LABS: African American GFR (CKD) 35 (>60 ml/min/1.73 sqM); Anion Gap 11 mmol/L; Blood Urea Nitrogen 35 mg/dL (9-20); Calcium 10.3 mg/dL (8.4-10.2); Carbon Dioxide 23 mmol/L (22-30); Chloride 104 mmol/L (98-107); Glucose 139 mg/dL (74-99); Non-African American GFR(CKD) 30 (>60 ml/min/1.73 sqM); Potassium 5.0 mmol/L (3.5-5.1); Sodium 138 mmol/L (137-145)
[2025-01-09 14:58] LABS: Glucose,Whole Blood 141 mg/dL (70-110)
[2025-01-09] MEDS ORDERED: MIDAZOLAM 2 MG/2 ML VIAL ONE (15:35)
[2025-01-09] MEDS ORDERED: fentaNYL (PF) 50 MCG/ML 2 ML AMP ONE (15:35)
[2025-01-09] MEDS ORDERED: PROPOFOL 10 MG/ML 20 ML VIAL IV ONE (15:35)
[2025-01-09] MEDS: ceFAZolin 1 GM in SODIUM CHLORIDE 0.9% IRRIG BTL 250 ML IRRIGATION PRN (16:20)
[2025-01-09] MEDS ORDERED: VANCOMYCIN IV PER PHARMACY 1 EACH MISC MISCELLANE PRN (16:25)
[2025-01-09] MEDS: LIDOCAINE 1% INJ 10MG/ML (20 ML MDV) SQ ONE (16:27)
[2025-01-09] MEDS: ROPIVACAINE 5 MG/ML 30 ML VIAL MISCELLANE ONE (16:28)
[2025-01-09] MEDS: VANCOMYCIN 1,000 MG in SODIUM CHLORIDE 0.9% 250 ML IVPB STA (16:40)
[2025-01-09] MEDS: HEPARIN SODIUM,PORCINE (1 ML) 2,500 UNIT in SODIUM CHLORIDE 0.9% 250 ML IRRIGATION ONE (16:56)
[2025-01-09] MEDS ORDERED: ACETAMINOPHEN TAB 325 MG TAB PO PRN (18:18)
--- NOTE | 2025-01-09 18:36 | P.EPPROC ---
- EP Procedure Note Electrophysiology Procedure Note: Diagnosis Permanent atrial fibrillation, severe bradycardia, 75-100% RV pacing, in situ single-chamber pacemaker Progressive cardiomyopathy with a temporal correlation with implantation of the permanent pacemaker single-chamber RV lead Steady decline over the years despite guideline directed medical treatment Left ventricular ejection fraction 40-45% with global hypokinesis and now reduced to 25% Lexiscan Cardiolite stress test did not show any evidence for ischemia Permanent atrial fibrillation with left atrial enlargement no significant coronary artery disease Creatinine 2.0 BUN 35, potassium 5.0, TSH 1.0, normal TSH Procedure Upgrade to biventricular pacemaker implantation with conduction system pacing (left bundle pacing) Explantation of dual-chamber pacemaker generator New subfascial pocket, caudal to the current subcutaneously located position Details Patient was brought to the EP lab in a fasting state. Written informed consent was obtained prior to the procedure. Conscious sedation provided by [employer]ITOR. IV antibiotics administered including vancomycin. Local anesthesia administered. A 4 cm incision made in the pectoral area. The current single- chamber pacemaker was subcutaneously located in the infraclavicular position. The new incision was made lower in the deltopectoral groove so that a new subfascial pocket could be made. A new subfascial pocket was made more caudal than the current location. Subfascial pocket made. Venous accesses obtained successful Venous sheaths placed. Leads placed in the right heart. RV pacing was continued via the single-chamber pacemaker until the end when explantation of the generator and implantation of a new biventricular pacemaker generator was performed. A deflected sheath was prepped. A coronary sinus decapolar catheter was placed within this sheath. The catheter along with the sheath was then passed into the right heart, the catheter was prolapsed across the tricuspid valve, into the right ventricle and then further into the right ventricular outflow tract across the pulmonic valve into the pulmonary artery. This sheath was slid over this decapolar catheter into the RVOT. Thereafter the catheter last sheath assembly was withdrawn from the RVOT along the septum to the mid septal area. The sheath was appropriately to to map the right ventricular aspect of the septum. The decapolar catheter was withdrawn, the sheath flushed again and the screw-in pacing lead placed within the sheath. Further detailed unipolar pace-mapping of the septum was performed and once the appropriate based morphology was obtained on lead V1, the lead was screwed into the septum. The lead was screwed in 4-5 returns at a time while monitoring the current of injury, the pacing impedance changes and the paced QRS morphology. The stimulus to peak of V6 QRS was measured at each step. Once a QR or rSR pattern of paced QRS in lead V1 was obtained, a left bundle signal was sought. Impedance was measured and thresholds were measured. An impedance drop of 100-200 ohms but above 550 ohms was targeted along with an unchanged vector of the current of injury signal. The final positioning was based on the QRS morphology in lead V1 and a short stimulus to peak of the V6 QRS of less than 90 ms. The sheath was withdrawn, stability of the pacing lead deep in the septum was confirmed on REYES and ITALIAN views and the sheath was slipped and an adequate heel was provided for the lead. Unipolar and bipolar electrogram morphology obtained Left bundle lead parameters typical right bundle branch block morphology paced QRS complexes noted associated with a sudden drop in impedance of 150 ohms. Unipolar pacing threshold was 0.5 V at 0.4 ms, pacing impedance of 760 ohms and R waves 9 mV sensed from RV pacing RV pacing impedance 418 ohms and pacing threshold 0.75 V at 0.4 ms. There was a 15 ms drop in peak activation time in leads I from RV pacing to Left bundle pacing Unipolar and bipolar pacing parameters were fairly similar but unipolar pacing resulted in a typical right bundle branch block pattern with RSR prime. Bipolar pacing resulted in more of a QR pattern in lead I. 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 Antibiotic pouch placed Patient tolerated the procedure well without acute complications Pacemaker programming VVI R 60-120 bpm LV RV offset of 80 ms
--- NOTE | 2025-01-09 18:59 | P.PRLE ---
RE: Car Escamilla Dear Perry Escamilla underwent upgrade to a conduction system pacemaker with left bundle pacing. Hopefully this results in improvement in his LV function as well as symptoms of heart failure and cardiorenal syndrome. I am increasing the dose of his beta-blockers today while continuing all other cardiac medications Thank you for entrusting me with the care of the patient Warm regards Sincerely Zeus Soria
[2025-01-09] MEDS: SODIUM BICARBONATE TAB 650 MG TAB PO SCH (20:44)
[2025-01-09] MEDS: GABAPENTIN 400 MG CAP PO SCH (20:44)
[2025-01-09] MEDS: SACUBITRIL/VALSARTAN 24 MG-26 MG TABLET PO SCH (20:44)
[2025-01-09] MEDS: METOPROLOL SUCCINATE (ER) 100 MG TAB.ER.24H PO SCH (20:44)
[2025-01-09] MEDS: APIXABAN 2.5 MG TABLET PO SCH (20:44)
[2025-01-09] MEDS: TAMSULOSIN 0.4 MG CAP.ER.24H PO SCH (20:44)
[2025-01-10] MEDS: ACETAMINOPHEN IV (For NPO) 1,000 MG in EMPTY BAG 1 BAG IVPB ONE (03:34)
[2025-01-10 08:13] VITALS: TEMP 98.2
--- NOTE | 2025-01-10 08:45 | XR ---
EXAMINATION TYPE: XR chest 2V DATE OF EXAM: 01/10/2025 6:52 AM COMPARISON: 10/07/2023 CLINICAL INDICATION: Male, 84 years old with history of Lead placement check, , TECHNIQUE: Frontal and lateral views FINDINGS: Heart mildly enlarged. Mild hyperinflation. [facility] mid and lower thoracic spine. Left anterior chest wa ll pacemaker generator with 2 right ventricular leads. No appreciable pneumothorax. No consolidation or pleural effusion. IMPRESSION: Mild cardiomegaly and interval placement of a second right ventricular lead. No appreciable pneumotho rax. [facility], Workstation: [id number], 01/10/2025 8:43 AM
[2025-01-10] MEDS: FAMOTIDINE 20 MG TAB PO SCH (09:00)
[2025-01-10] MEDS: FENOFIBRATE 160 MG TAB PO SCH (09:01)
[2025-01-10] MEDS: DAPAGLIFLOZIN PROPANEDIOL 5 MG TABLET PO SCH (09:01)
[2025-01-10] MEDS: FUROSEMIDE 20 MG TAB PO SCH (09:01)
[2025-01-10 10:28] VITALS: BP 116/73; PULSE 99
[2025-01-10 12:43] LABS: Glucose,Whole Blood 185 mg/dL (70-110)
== END 2025-01-10 14:46 | disposition home or self-care (01) ==
LOC: CATHEP 12:45 → 6NMEDSUR 18:16 → CATHEP 01-10 14:46
PROVIDERS: ATTEND Internal Medicine Clinical Cardiac Electrophysiology
DX: Z45.018 Encounter for adjustment and management of other part of cardiac pacemaker (principal); I42.9 Cardiomyopathy, unspecified; I48.21 Permanent atrial fibrillation; I50.32 Chronic diastolic (congestive) heart failure; Z79.01 Long term (current) use of anticoagulants
CPT/HCPCS: 33214; 80048; 84443; 85025; 71046; C1769 ×2; C2621; C1730; C1887; C1892; C1898; J2250; J1644; J0690; J2003; J3010; J2795; J2704; J3373